=== PATIENT | female | born 1945 | race Caucasian/White ===

== ENCOUNTER → 2017-04-07 | Outpatient (CLI) | payer BC ==
[~2017-04-07] MED LIST: CHOL100010 PO; CLTP PO; CMD2 PO; EST1 PO; FISHOIL PO; IRON PO; MAGNESIUM PO; MULT-506 PO
--- NOTE | 2017-04-07 15:53 | MAMMOGRAPHY REPORT ---
BILATERAL DIGITAL SCREENING MAMMOGRAM WITH CAD: 04/07/2017 CLINICAL HISTORY: Routine screening. Patient has no complaints. TECHNIQUE: Current study was also evaluated with a Computer Aided Detection (CAD) system. Bilatera l CC and MLO views were obtained. COMPARISON: Comparison is made to exams dated: 01/21/2016 mammogram, 01/15/2015 mammogram, 01/08/2014 m ammogram, 10/20/2012 ultrasound, 10/20/2012 mammogram, and 01/11/2014 ultrasound - [facility]. BREAST COMPOSITION: The tissue of both breasts is heterogeneously dense, which may obscure small ma sses. FINDINGS: No suspicious masses, calcifications, or areas of architectural distortion are noted in e ither breast. There has been no significant interval change compared to prior exams. Scattered bilat eral benign-appearing calcifications are not significantly changed. Fluctuating benign-appearing ma sses are again noted within the left breast, with corresponding benign cysts seen on prior ultrasoun d exams. Scattered bilateral benign-appearing calcifications are not significantly changed. IMPRESSION: ACR BI-RADS CATEGORY 2: BENIGN There is no mammographic evidence of malignancy. A 1 year screening mammogram is recommended. The p atient will receive written notification of the results. Approximately 10% of breast cancers are not detected with mammography. A negative mammographic repor t should not delay biopsy if a clinically suggestive mass is present. Stella Rodriguez M.D. /:04/07/2017 15:11:11 End Polisher: Alie Zapata, [facility] letter sent: Normal 1/2 BI-RADS Code: ACR BI-RADS Category 2: Benign
== END | disposition home or self-care (01) ==
LOC: C.MAMM 09:06
PROVIDERS: ATTEND Obstetrics & Gynecology
DX: Z12.31 Encounter for screening mammogram for malignant neoplasm of breast (principal)

== ENCOUNTER → 2017-06-06 | Outpatient (CLI) | payer BC | END | disposition home or self-care (01) | LOC: C.RDSM 11:40 | PROVIDERS: ATTEND Physical Medicine & Rehabilitation Sports Medicine | DX: Z96.643 Presence of artificial hip joint, bilateral (principal) ==

== ENCOUNTER → 2017-09-26 | Outpatient (CLI) | payer BC ==
--- NOTE | 2017-09-26 13:15 | DIAGNOSTIC IMAGING REPORT ---
L FOOT MIN 3 VIEWS ROUTINE CLINICAL HISTORY: 72 years-old Female presenting with L FOOT PAIN, ACUTE, INFLAMMATORY. TECHNIQUE: Frontal, oblique, and lateral views of the left foot were obtained. COMPARISON: Plain radiographs of the right foot from 09/19/2015. FINDINGS: 2 screw fixation across the distal metaphysis of the first metatarsal. Screw fixation across the head of the second metatarsal. Suggestion of cortical erosion along the medial aspect of the head of the second metatarsal, age indeterminate. Surgically absent second toe. Degenerative changes of the first metatarsophalangeal joint with mild valgus angulation of the left toe. No acute fracture. IMPRESSION: Apparent osseous erosion of the medial aspect of the head of the second metatarsal. This raises concern for osteomyelitis in the proper clinical setting. Further evaluation with noncontrast MR of the forefoot could be obtained if clinically indicated. The report will be called/faxed according to standard departmental protocol. Electronically signed by: Corby Pacheco M.D. 09/26/2017 1:13 PM Dictated Date/Time: 09/26/2017 1:10 PM
--- NOTE | 2017-09-26 13:21 | DIAGNOSTIC IMAGING REPORT ---
R HAND MIN 3 VIEWS ROUTINE HISTORY: 72 years-old Female R HAND INFLAMMATORY chronic right hand pain without trauma COMPARISON: Left foot radiographs of same day TECHNIQUE: 3 views of the right hand FINDINGS: Mild periarticular osteopenia is noted. Moderate triscaphe and first carpometacarpal osteoarthritis with moderate metacarpal phalangeal degenerative changes of the first through third digits. Moderate interphalangeal degenerative changes are noted throughout. Central and marginal erosions are noted involving the fifth PIP joint along with marginal proliferative osteophytic spurring and subchondral sclerosis. Moderate associated soft tissue swelling. No definite additional erosions identified. No acute fracture or dislocation. No opaque foreign body. IMPRESSION: 1. Marginal and central erosions of the fifth PIP joint with associated marginal osteophytic spurring and moderate soft tissue swelling. These findings suggest an inflammatory arthropathy. 2. Multifocal moderate degenerative changes of the wrist and hand as above with periarticular osteopenia. The above report was generated using voice recognition software. It may contain grammatical, syntax or spelling errors. Electronically signed by: Rafael Chavarria M.D. 09/26/2017 1:20 PM Dictated Date/Time: 09/26/2017 1:16 PM
== END | disposition home or self-care (01) ==
LOC: C.RAD1850 12:51
DX: M79.672 Pain in left foot (principal); R93.7 Abnormal findings on diagnostic imaging of other parts of musculoskeletal system; M79.89 Other specified soft tissue disorders; M89.8X4 Other specified disorders of bone, hand

== ENCOUNTER 2019-04-27 18:07 | Inpatient (IN) ==
[2019-04-27] MEDS ORDERED: dilTIAZem HCl 5 MG/ML 5 ML VIAL IV STA (18:33)
[2019-04-27] MEDS ORDERED: dilTIAZem HCl 125 MG in DEXTROSE 5% 100 ML IV STA (18:33)
[2019-04-27] MEDS ORDERED: SODIUM CHLORIDE 0.9% 500 ML IV SCH (18:45)
--- NOTE | 2019-04-27 19:25 | XRay Report ---
XR chest 1V portable HISTORY: 73 years-old Female weakness acute weakness with atrial fibrillation COMPARISON: None available TECHNIQUE: Portable AP view of the chest FINDINGS: Cardiac mediastinal and hilar silhouettes are within normal limits. No pneumothorax, pleural effusion , focal airspace consolidation or overt pulmonary edema. Bones of the chest appear grossly intact. IMPRESSION: No acute process. The above report was generated using voice recognition software. It may contain grammatical, syntax o r spelling errors. Electronically signed by: Rafael Chavarria M.D. 04/27/2019 7:24 PM
[2019-04-27 19:28] LABS: Basophils # (auto) 0.04 K/uL (0-0.2); Basophils % (auto) 0.6 %; Eosinophils # (auto) 0.16 K/uL (0-0.5); Eosinophils % (auto) 2.5 %; Hematocrit (blood only) 37.1 % (37-47); Hemoglobin 13.1 g/dL (12.0-16.0); Lymphocytes % (auto) 36.2 %; Mean Corpuscular Hgb Conc 35.3 g/dL (32-36); Mean Corpuscular Volume 92.3 fL (80-100); Mean Platelet Volume 9.1 fL (7.4-10.4); Monocytes # (auto) 0.61 K/uL (0.11-0.59); Monocytes % (auto) 9.6 %; Neutrophils # (auto) 3.25 K/uL (1.4-6.5); Neutrophils % (auto) 51.1 %; Platelet Count 234 K/uL (130-400); RDW Coefficient of Variation 13.5 % (11.5-14.5); RDW Standard Deviation 44.8 fL (36.4-46.3); Red Blood Count 4.02 M/uL (4.2-5.4); White Blood Count 6.36 K/uL (4.8-10.8)
[2019-04-27 19:52] LABS: Alanine Aminotransferase 24 U/L (12-78); Albumin Level 3.3 gm/dl (3.4-5.0); Aspartate Aminotransferase 24 U/L (15-37); BUN Creatinine Ratio 16.3 (10-20); Blood Urea Nitrogen 11 mg/dl (7-18); Calcium 8.6 mg/dl (8.5-10.1); Carbon Dioxide 26 mmol/L (21-32); Chloride 111 mmol/L (98-107); Creatinine Clr Calc Pharmacy 67.7 ml/min; Est GFR (African American) 102.5; Est GFR (Non-African American) 88.4; Glucose 82 mg/dl (70-99); Magnesium 2.1 mg/dl (1.8-2.4); Potassium 3.6 mmol/L (3.5-5.1); Sodium 142 mmol/L (136-145)
[2019-04-27 20:02] LABS: Albumin Globulin Ratio 1.1 (0.9-2); Alkaline Phosphatase 59 U/L (45-117); Bilirubin,Total 0.4 mg/dl (0.2-1); Globulin 3.1 gm/dl (2.5-4.0); Total Protein 6.4 gm/dl (6.4-8.2); Troponin I < 0.015 ng/ml (0-0.045)
[2019-04-27 20:15] LABS: T4 Free Thyroxine 0.98 ng/dl (0.8-1.6)
--- NOTE | 2019-04-27 22:14 | History & Physical Report ---
Date of Service April 27, 2019 Assessment & Plan (1) Atrial fibrillation, rapid: Patient in atrial fibrillation, no document of prior. HR well controlled on Diltiazem gtt, BP stable, asymptomatic. Patient with 2 points on CHADS2-Vasc score, high risk for thromboembolism. Troponin x 1 negative, no evidence of ischemic changes on EKG. Suspect that patient's incredible stress is contributing no new arrhythmia -Admit to medical floor with telemetry -DC Diltiazem gtt and administer PO Diltiazem 30mg po TID -Heparin gtt, transition to oral anticoagulation in AM -2D echo in AM Present on Admission?: Yes (2) Arthritis: Chronic. Stable -Continue Celebrex daily -Continue MTX weekly F/E/N - Heplock. Electrolytes WNL, check PO4 x 1, Regular diet as tolerated Ppx - heparin gtt as above Code - Full Dispo - Admit to Med with Tele Present on Admission?: Yes History of Present Illness Chief Complaint: Palpitations, new onset atrial fibrillation Primary Care Provider: Frederick Armijo Jr, Mica Saleem is a 73yo C female with history of arthritis presenting with new onset atrial fibrillation. Patient has been under a large amount of personal and professional stress of late. She reports feeling very fatigued over the last few weeks. This AM she had palpitations associated with lightheadedness and presyncope. She was running errands at the time. She sat down and rested with improvement in her symptoms. Patient reports longstanding history of PACs, she has experienced palpitations in the past, however this episode was different because it was more pronounced, longer lasting and associated with dizziness. She denies EtOH intake. Drinks no more than 2 caffeinated beverages daily. Patient arrived to the ER with HR of 118bpm, blood pressure stable. ER course: Diltiazem 10mg IV then drip, NSS 500mL Allergies Allergy/AdvReac Type Severity Reaction Status Date / Time adhesive Allergy Unknown SWELLING Verified 04/27/19 20:12 AND REDNESS LOCALLY codeine AdvReac Unknown NAUSEA AND Verified 04/27/19 20:12 VOMITING morphine AdvReac Unknown NAUSEA AND Verified 04/27/19 20:12 VOMITING Home Medications Home Medications Medication Instructions Recorded Confirmed Type celecoxib 200 mg PO QAM 04/27/19 04/27/19 History cholecalciferol (vitamin D3) 1,000 unit PO QAM 04/27/19 04/27/19 History [Vitamin D3] estradiol 1 mg PO QAM 04/27/19 04/27/19 History ferrous sulfate [iron] 325 mg PO QAM 04/27/19 04/27/19 History folic acid 1 mg PO QAM 04/27/19 04/27/19 History methotrexate sodium 15 mg PO WK 04/27/19 04/27/19 History omega 7-wrt-jfq-fish oil [Fish Oil] 1 cap PO QAM 04/27/19 04/27/19 History vitamin B complex [Super B-50 1 cap PO QAM 04/27/19 04/27/19 History Complex] Past Med/Surg History Medical History A-fib Arthritis Surgical History History of total hip replacement Hx of cataract surgery Family History Other Family history non-contributory Social History Preferred Language: [place] marital status: Current Living Situation: Alone current occupational status: employed Feels Safe at Home: Yes Smoking Status: Never smoker Hx Alcohol Use: No Hx Substance Use: No Review of Systems Review of Systems: All systems reviewed & are unremarkable except as noted in HPI & below Physical Exam Physical Exam: General: patient resting comfortably, NAD, non-toxic in appearance, AA&O x 4 Skin: warm, dry, intact, no rashes or lesions HEENT: NC/AT, PERRL, EOMI, anicteric sclera, conjunctiva without injection, ex ternal ear normal to inspection and nontender, nares patent, moist mucus membranes, dentition intact, no oropharyngeal lesions, neck supple, trachea midline, no LAD, no thyromegaly, no JVD Heart: +S1/S2, irregularly irregular, no m/r/g Lungs: equal air entry bilaterally, no rales/rhonchi/wheezes Abd: +BS, soft, NT/ND, no masses/organomegaly/ascites Ext: warm, 2+ pulses in UE/LE bilaterally, no clubbing/cyanosis or edema Neuro: nonfocal, patient AA&O x 4, speech intact, no facial droop, moving all extremities on command with equal strength 5/5 Results & Data Vital Signs (Past 12 Hours) Vital Signs Temp Pulse Pulse Resp BP BP Pulse Ox 04/27/19 20:30 70 18 120/76 97 04/27/19 19:34 69 16 145/82 H 98 04/27/19 19:19 99 04/27/19 19:17 85 18 159/107 H 99 04/27/19 18:08 36.5 C 118 H 18 153/71 H 100 Laboratory Results Lab Results 04/27/19 04/27/19 Range/Units 19:00 19:00 WBC 6.36 (4.8-10.8) K/uL RBC 4.02 L (4.2-5.4) M/uL Hgb 13.1 (12.0-16.0) g/dL Hct 37.1 (37-47) % MCV 92.3 (80-100) fL MCH 32.6 (25-34) pg MCHC 35.3 (32-36) g/dL RDW Std Deviation 44.8 (36.4-46.3) fL RDW Coeff of Amena 13.5 (11.5-14.5) % Plt Count 234 (130-400) K/uL MPV 9.1 (7.4-10.4) fL Immature Gran % (Auto) 0.0 % Neut % (Auto) 51.1 % Lymph % (Auto) 36.2 % [place] % (Auto) 9.6 % Eos % (Auto) 2.5 % Baso % (Auto) 0.6 % Immature Gran # (Auto) 0.00 (0.00-0.02) K/uL Neut # (Auto) 3.25 (1.4-6.5) K/uL Lymph # (Auto) 2.30 (1.2-3.4) K/uL [place] # (Auto) 0.61 H (0.11-0.59) K/uL Eos # (Auto) 0.16 (0-0.5) K/uL Baso # (Auto) 0.04 (0-0.2) K/uL Sodium 142 (136-145) mmol/L Potassium 3.6 (3.5-5.1) mmol/L Chloride 111 H (98-107) mmol/L Carbon Dioxide 26 (21-32) mmol/L Anion Gap 5.0 (3-11) BUN 11 (7-18) mg/dl Creatinine 0.67 (0.6-1.2) mg/dl Est Cr Clr Drug Dosing 67.7 ml/min Est GFR ( Amer) 102.5 Est GFR (Non-Af Amer) 88.4 BUN/Creatinine Ratio 16.3 (10-20) Glucose 82 (70-99) mg/dl Calcium 8.6 (8.5-10.1) mg/dl Magnesium 2.1 (1.8-2.4) mg/dl Total Bilirubin 0.4 (0.2-1) mg/dl AST 24 (15-37) U/L ALT 24 (12-78) U/L Alkaline Phosphatase 59 (45-117) U/L Troponin I < 0.015 (0-0.045) ng/ml Total Protein 6.4 (6.4-8.2) gm/dl Albumin 3.3 L (3.4-5.0) gm/dl Globulin 3.1 (2.5-4.0) gm/dl Albumin/Globulin Ratio 1.1 (0.9-2) TSH 5.440 H (0.300-4.500) uIu/ml Free T4 0.98 (0.8-1.6) ng/dl Diagnostic Findings XR chest 1V portable HISTORY: 73 years-old Female weakness acute weakness with atrial fibrillation COMPARISON: None available TECHNIQUE: Portable AP view of the chest FINDINGS: Cardiac mediastinal and hilar silhouettes are within normal limits. No pneumothorax, pleural effusion, focal airspace consolidation or overt pulmonary edema. Bones of the chest appear grossly intact. IMPRESSION: No acute process. The above report was generated using voice recognition software. It may contain grammatical, syntax or spelling errors. Electronically signed by: Rafael Chavarria M.D. 04/27/2019 7:24 PM Dictated: 04/27/191921 Transcribed: 04/27/191921 ECG Additional Comments: The study shows atrial fibrillation at 106bpm, normal axis and intervals, no acute ischemic changes Code Status & VTE Plan Code Status full VTE Prophylaxis Plan VTE Prophylaxis will be ordered: Yes
--- NOTE | 2019-04-27 22:50 | Emergency Department Note ---
Entered by Shadi Moreau acting as a scribe for History of Present Illness General Chief complaint: Arrhythmia/Palpitations Stated complaint: AFIB Time Seen by Provider: 04/27/19 18:23 Source: patient Limitations: no limitations History of Present Illness Onset (ago): hour(s) (this morning) Location: chest Pain Consistency: + constant Maximum Pain Intensity: 0 Current Pain Intensity: 0 Quality: + other (flutter) Associated symptoms: + other (stress, grief, lightheadedness); no shortness of breath The patient is a 73 year old female who presents to the Emergency Room with complaints of constant arrhythmia starting this morning. The patient states she went to preop testing today and states the EKG showed she was in A-Fib--she is scheduled for foot surgery. She states she noticed her heart flutter before going to the appointment but thought it was because of stress. She states she has been under a lot of stress and grief from her son passing away recently. She states she does not have any pain from the fluttering. She notes she feels lightheaded. She states she has been drinking diet Pepsi recently. She states she has been taking 200 mg Celebrex in the morning. She denies SOB, taking blood thinners, and having A-Fib before. She states she was diagnosed with PACs when she was a kid. She states she has arthritis and has had 2 total knee replacements. Home Medications Home Medications Medication Instructions Recorded Confirmed Type celecoxib 200 mg PO QAM 04/27/19 04/27/19 History cholecalciferol (vitamin D3) 1,000 unit PO QAM 04/27/19 04/27/19 History [Vitamin D3] estradiol 1 mg PO QAM 04/27/19 04/27/19 History ferrous sulfate [iron] 325 mg PO QAM 04/27/19 04/27/19 History folic acid 1 mg PO QAM 04/27/19 04/27/19 History methotrexate sodium 15 mg PO WK 04/27/19 04/27/19 History omega 8-vbc-siw-fish oil [Fish Oil] 1 cap PO QAM 04/27/19 04/27/19 History vitamin B complex [Super B-50 1 cap PO QAM 04/27/19 04/27/19 History Complex] Allergies Allergy/AdvReac Type Severity Reaction Status Date / Time adhesive Allergy Unknown SWELLING Verified 04/27/19 20:12 AND REDNESS LOCALLY codeine AdvReac Unknown NAUSEA AND Verified 04/27/19 20:12 VOMITING morphine AdvReac Unknown NAUSEA AND Verified 04/27/19 20:12 VOMITING Past Med/Surg History Medical History A-fib Arthritis Surgical History History of total hip replacement Hx of cataract surgery Family History Other Family history non-contributory Social History Preferred Language: [place] Islander marital status: Current Living Situation: Alone current occupational status: employed Feels Safe at Home: Yes Smoking Status: Never smoker Hx Alcohol Use: No Hx Substance Use: No Review of Systems See HPI for pertinent positives & negatives. and A total of 10 systems reviewed and were otherwise negative Physical Exam Vital Signs Vital Signs - 24 hr 04/27/19 18:08 04/27/19 19:17 04/27/19 19:19 Temperature 36.5 C Temperature Source Oral Sepsis Recent Fever Within 48 Hours No Sepsis Action Taken by Nursing No Action Required Pulse Rate 118 H Pulse Rate [Right Finger] 85 Respiratory Rate 18 18 Respiratory Effort / Characteristics Non-Labored Spontaneous Non-Labored Spontaneous Respiratory Depth Normal Normal Respiratory Pattern Regular Regular Blood Pressure 153/71 H Blood Pressure [Right Arm] 159/107 H Blood Pressure Mean 98 Blood Pressure Mean [Right Arm] 124 Blood Pressure Position Sitting Blood Pressure Position [Right Arm] Lying Pulse Oximetry 100 99 99 Oxygen Delivery Method Room Air Room Air Room Air 04/27/19 19:34 04/27/19 20:30 Temperature Temperature Source Sepsis Recent Fever Within 48 Hours Sepsis Action Taken by Nursing Pulse Rate Pulse Rate [Right Finger] 69 70 Respiratory Rate 16 18 Respiratory Effort / Characteristics Non-Labored Spontaneous Non-Labored Spontaneous Respiratory Depth Normal Normal Respiratory Pattern Regular Regular Blood Pressure Blood Pressure [Right Arm] 145/82 H 120/76 Blood Pressure Mean Blood Pressure Mean [Right Arm] 103 90 Blood Pressure Position Blood Pressure Position [Right Arm] Lying Lying Pulse Oximetry 98 97 Oxygen Delivery Method Room Air Room Air GENERAL: Patient is in no acute distress. HEENT: No acute trauma, normocephalic atraumatic, mucous membranes moist, no nasal congestion, no scleral icterus. NECK: No stridor, no adenopathy, no meningismus, trachea is midline. LUNGS: Clear to auscultation bilaterally, no wheeze, no rhonchi, breath sounds equal. HEART: Irregular rhythm. Mildly tachycardic rate. No murmurs. ABDOMEN: Soft, nontender, bowel sounds positive, no hernias, no peritonitis. EXTREMITIES: No cyanosis or edema, full range of motion of all the joints without pain or difficulty, no signs for acute trauma. NEUROLOGIC: Oriented x 3, no acute motor or sensory deficits, no focal weakness. SKIN: No rash, no jaundice, no diaphoresis. Course 1825: The patient was evaluated in room B5, and a complete history and physical examination were performed. 2004: I reevaluated the patient. I updated her on her labs and imaging results. Her heart rate is controlled and she is resting. 2029: I discussed the patient's case with Dr. Mary Jo Chau - [facility] Hospitalist. She will evaluate the patient for further management. Administered Medications Diltiazem HCl (Cardizem) 30 mg PO TID CODI Stop: 05/27/19 23:29 Last Admin: 04/27/19 23:54 Dose: 30 mg Documented by: [id number] Heparin Sodium/Dextrose (Heparin Sodium/Dextrose) 25,000 units in 500 mls @ 20 mls/hr IV .Q24H CODI; Protocol Stop: 05/27/19 23:29 Last Admin: 04/27/19 23:53 Dose: 1,000 units/hr, 20 mls/hr Documented by: [id number] Cosigned by: [id number] Discontinued Medications Diltiazem HCl (Cardizem) 10 mg IV NOW STA Stop: 04/27/19 18:34 Last Admin: 04/27/19 19:10 Dose: 10 mg Documented by: [id number] Cosigned by: [id number] Diltiazem HCl 125 mg/ Dextrose 125 mls @ 0 mls/hr IV .Q0M STA; Protocol Stop: 04/27/19 18:34 Last Admin: 04/27/19 19:11 Dose: 5 mg/hr, 5 mls/hr Documented by: [id number] Cosigned by: [id number] Sodium Chloride (Nss) 500 mls @ 999 mls/hr IV .Q31M CODI Stop: 04/27/19 19:15 Last Infusion: 04/27/19 19:37 Dose: 0 mls/hr Documented by: [id number] Admin: 04/27/19 19:10 Dose: 999 mls/hr Documented by: [id number] Medical Decision Making Differential Diagnosis Differential Diagnosis: A-Fib, A-Flutter, thyroid disorder, electrolyte imbalance, dehydration, anemia, and cardiac ischemia. Medical Records Attestation: I reviewed the patient's medical records. Home Medications Current Medication List: was personally reviewed by me Laboratory Data Attestation: I reviewed the patient's lab results. Result diagrams: 04/27/19 19:00 04/27/19 19:00 Lab Results 04/27/19 04/27/19 Range/Units 19:00 19:00 WBC 6.36 (4.8-10.8) K/uL RBC 4.02 L (4.2-5.4) M/uL Hgb 13.1 (12.0-16.0) g/dL Hct 37.1 (37-47) % MCV 92.3 (80-100) fL MCH 32.6 (25-34) pg MCHC 35.3 (32-36) g/dL RDW Std Deviation 44.8 (36.4-46.3) fL RDW Coeff of [place] 13.5 (11.5-14.5) % Plt Count 234 (130-400) K/uL MPV 9.1 (7.4-10.4) fL Immature Gran % (Auto) 0.0 % Neut % (Auto) 51.1 % Lymph % (Auto) 36.2 % [place] % (Auto) 9.6 % Eos % (Auto) 2.5 % Baso % (Auto) 0.6 % Immature Gran # (Auto) 0.00 (0.00-0.02) K/uL Neut # (Auto) 3.25 (1.4-6.5) K/uL Lymph # (Auto) 2.30 (1.2-3.4) K/uL [place] # (Auto) 0.61 H (0.11-0.59) K/uL Eos # (Auto) 0.16 (0-0.5) K/uL Baso # (Auto) 0.04 (0-0.2) K/uL Sodium 142 (136-145) mmol/L Potassium 3.6 (3.5-5.1) mmol/L Chloride 111 H (98-107) mmol/L Carbon Dioxide 26 (21-32) mmol/L Anion Gap 5.0 (3-11) BUN 11 (7-18) mg/dl Creatinine 0.67 (0.6-1.2) mg/dl Est Cr Clr Drug Dosing 67.7 ml/min Est GFR ( Amer) 102.5 Est GFR (Non-Af Amer) 88.4 BUN/Creatinine Ratio 16.3 (10-20) Glucose 82 (70-99) mg/dl Calcium 8.6 (8.5-10.1) mg/dl Phosphorus 3.4 (2.5-4.9) mg/dl Magnesium 2.1 (1.8-2.4) mg/dl Total Bilirubin 0.4 (0.2-1) mg/dl AST 24 (15-37) U/L ALT 24 (12-78) U/L Alkaline Phosphatase 59 (45-117) U/L Troponin I < 0.015 (0-0.045) ng/ml Total Protein 6.4 (6.4-8.2) gm/dl Albumin 3.3 L (3.4-5.0) gm/dl Globulin 3.1 (2.5-4.0) gm/dl Albumin/Globulin Ratio 1.1 (0.9-2) TSH 5.440 H (0.300-4.500) uIu/ml Free T4 0.98 (0.8-1.6) ng/dl Imaging Data Radiologist's Impression: Radiology results as stated below per my review and the radiologist's interpretation: XR chest 1V portable HISTORY: 73 years-old Female weakness acute weakness with atrial fibrillation COMPARISON: None available TECHNIQUE: Portable AP view of the chest FINDINGS: Cardiac mediastinal and hilar silhouettes are within normal limits. No pneumothorax, pleural effusion, focal airspace consolidation or overt pulmonary edema. Bones of the chest appear grossly intact. IMPRESSION: No acute process. The above report was generated using voice recognition software. It may contain grammatical, syntax or spelling errors. Electronically signed by: Rafael Chavarria M.D. 04/27/2019 7:24 PM ECG Data Attestation: I personally reviewed and interpreted this ECG as follows: Indication: chest pain Rate (beats per minute): 106 Rhythm: atrial fibrillation Findings: + nonspecific-ST abn; no PVC and no ST elevation Blood Pressure Blood Pressure Findings: Elevated blood pressure Blood Pressure Disposition: further management by hospitalist LEVI Narrative There is no leukocytosis or concerning anemia. No significant electrolyte abnormality or kidney failure. No elevation to the LFTs. The patient's thyroid testing showed a mildly elevated TSH but the T4 was normal. EKG showed atrial fibrillation which was rapid, no acute ischemia. Cardiac enzyme testing x1 was not consistent with acute cardiac injury. Chest film did not show pneumonia or CHF. No significant cardiomegaly. The patient received IV saline. She was placed on a diltiazem drip after an IV diltiazem bolus was administered. The patient is still in A. fib but the rate is nicely controlled with the diltiazem. I do think she requires hospitalization and further work-up. I spoke to the patient and home health care case manager. The on-call hospitalist was consulted. Impression & Plan Atrial fibrillation, rapid, Palpitations Critical Care Time Critical Care Time: Yes Total Critical Care Time: 35 I have personally spent 35 minutes of critical care time in the direct management of this patient. This includes bedside care, interpretation of diagnostic studies, and testing, discussion with consultants, patient, and family members, and other required patient management activities. This 35 minutes is in excess of all separately billable procedures. Discharge Plan Visit Data *Final* Discharge Date/Time: 04/27/19 22:14 Chief Complaint: Arrhythmia/Palpitations Stated Complaint: AFIB ED Provider: Anthony Sorenson Discharge Problem: Atrial fibrillation, rapid, Palpitations Patient Disposition: Admitted As Inpatient Discharge Instructions Interventions: ED Discharge Assessment Last Done: 04/27/19 22:14 The tyler's documentation has been prepared under my direction and personally reviewed by me in its entirety. I confirm that the note above accurately reflects all work, treatment, procedures, and medical decision making performed by me.
[2019-04-27] MEDS ORDERED: Heparin IV Standard *NO* Bolus IV SCH (23:00)
[2019-04-27] MEDS ORDERED: Heparin Adult STANDARD Wt-Based Dextrose 5% 25,000 units/500 mL IV SCH (23:30)
[2019-04-27] MEDS: dilTIAZem HCL 30 MG TAB PO SCH (23:54)
[2019-04-27 23:56] LABS: Phosphorus 3.4 mg/dl (2.5-4.9)
[2019-04-28 06:37] LABS: Partial Thromboplastin Ratio 2.3
[2019-04-28 06:53] LABS: Partial Thromboplastin Time 61.1 Seconds (21.0-31.0)
[2019-04-28] MEDS: dilTIAZem HCL 30 MG TAB PO SCH ×2 (08:31→14:25)
[2019-04-28] MEDS ORDERED: ESTRADIOL 1 MG TAB PO SCH (09:00)
[2019-04-28] MEDS ORDERED: FERROUS SULFATE 325 MG TAB PO SCH (09:00)
[2019-04-28] MEDS ORDERED: FOLIC ACID 1 MG TAB PO SCH (09:00)
[2019-04-28] MEDS ORDERED: CeleBREX 200 MG CAP PO SCH (09:00)
[2019-04-28] MEDS ORDERED: metHOTREXate sodium 2.5 MG TAB PO SCH (09:00)
--- NOTE | 2019-04-28 12:10 | Discharge Summary ---
Date of Service April 28, 2019 Admission HPI Per Admitting Provider Mica Saleem is a 73yo C female with history of arthritis presenting with new onset atrial fibrillation. Patient has been under a large amount of personal and professional stress of late. She reports feeling very fatigued over the last few weeks. This AM she had palpitations associated with lightheadedness and presyncope. She was running errands at the time. She sat down and rested with improvement in her symptoms. Patient reports longstanding history of PACs, she has experienced palpitations in the past, however this episode was different because it was more pronounced, longer lasting and associated with dizziness. She denies EtOH intake. Drinks no more than 2 caffeinated beverages daily. Patient arrived to the ER with HR of 118bpm, blood pressure stable. ER course: Diltiazem 10mg IV then drip, NSS 500mL Admission Exam Per Admitting Provider General: patient resting comfortably, NAD, non-toxic in appearance, AA&O x 4 Skin: warm, dry, intact, no rashes or lesions HEENT: NC/AT, PERRL, EOMI, anicteric sclera, conjunctiva without injection, external ear normal to inspection and nontender, nares patent, moist mucus membranes, dentition intact, no oropharyngeal lesions, neck supple, trachea midline, no LAD, no thyromegaly, no JVD Heart: +S1/S2, irregularly irregular, no m/r/g Lungs: equal air entry bilaterally, no rales/rhonchi/wheezes Abd: +BS, soft, NT/ND, no masses/organomegaly/ascites Ext: warm, 2+ pulses in UE/LE bilaterally, no clubbing/cyanosis or edema Neuro: nonfocal, patient AA&O x 4, speech intact, no facial droop, moving all extremities on command with equal strength 5/5 Principal Diagnosis Atrial fibrillation with RVR. Discharge Exam General Appearance: Awake, alert & oriented, comfortable in general, NAD. CV: +S1S2 RRR, no murmur. Pulm: Clear to auscultation throughout. Abdomen: +BS, soft, non-tender, non-distended. Extremities: No pedal edema bilaterally. Moving all extremities naturally and easily. Left foot: Surgically absent second toe. Has a light bandage to the medial first MTP joint. Neuro: No gross neuro deficits. Discharge Data Allergies Allergy/AdvReac Type Severity Reaction Status Date / Time adhesive Allergy Unknown SWELLING Verified 04/27/19 20:12 AND REDNESS LOCALLY codeine AdvReac Unknown NAUSEA AND Verified 04/27/19 20:12 VOMITING morphine AdvReac Unknown NAUSEA AND Verified 04/27/19 20:12 VOMITING Consultations 04/27/19 20:12 ED Decision to Admit Stat Ordered Studies Transthoracic echocardiogram on 28 April 2019 See full report. In summary: - Normal left ventricular size with hyperdynamic systolic function. EF greater than 70%. No regional wall motion abnormalities. Mild concentric LVH. � Mild biatrial dilatation, mild mitral regurgitation, moderate tricuspid regurgitation. � Normal estimated right ventricular systolic pressure. Hospital Course (1) Atrial fibrillation with RVR: 73-year-old female was admitted on 27 April 2019 after being found in A. fib during outpatient preoperative EKG. Atrial fibrillation with RVR: No history of same. Does report some recent increased fatigue and lightheadedness which she attributes to multiple personal and professional stressors lately. Initial EKG was afib rate 128. TnI negative and no CP/SOB. pCXR clear Started on diltiazem drip, converted to NSR overnight, then transitioned to diltiazem 30 mg p.o. TID as inpatient. On heparin acutely. 08Apr TTE noted EF > 70%, mild biatrial dilatation, mild MR, moderate TR, normal estimated RVSP. No evidence of clot. - Discussed the basics of atrial fibrillation with the patient. - Will discharge on metoprolol succinate 50 mg p.o. daily. - Worked with case management. Will send home on xarelto 20 mg daily. Should discuss concurrent use of Celebrex with her PCP or cardiology. - Recommended follow-up with her primary care provider or cardiology (Dr. Gonzalez read her initial EKG) as soon as possible for ongoing management. Foot surgery: Patient says she is on track for left foot surgery on . - Will need her anticoagulation held preoperatively. Recommended follow-up with her foot surgeon as soon as possible to discuss her new A. fib diagnosis. Elevated TSH: Admit TSH was 5.54 with normal free T4. Need to be addressed as outpatient by PCP. Arthritis: Chronic, stable. On Celebrex and methotrexate. Code status: Full code. (2) Elevated TSH: (3) Arthritis: Total Time Total Time Spent Total Time Spent (In Minutes): > 30 min Discharge Plan Discharge Items Patient Disposition: Home - Self-Care Reason For Visit: NEW ONSET ATRIAL FIB Discharge Diagnosis: Atrial fibrillation with RVR Discharge Goals: Learn about illness Activity: Per 'Additional Instructions' section Non-emergency contact: Primary Care Provider Call non-emergency contact if: you have any medication questions Follow-up/Referrals: Frederick Armijo Jr, [Primary Care Provider] - Diet: Regular Addtl Provider Instructions: You were admitted to the hospital on April 27, 2019 due to the new diagnosis of atrial fibrillation (�afib�) on your preoperative EKG. As we discussed briefly, atrial fibrillation is where the top two chambers of your heart do not squeeze quite properly (they fibrillate) at times. This fibrillation in itself can to the development of blood clots which, unfortunately, can then leave your heart and cause things like strokes or lung clots. Furthermore, if your fibrillation ends up going to fast you can get further symptoms such as lightheadedness, dizziness, increased fatigue, and palpitations. In severe cases he can have chest pain and low blood pressure leading to other problems. - In the hospital, your heart rate converted back to a normal electrical rhythm after starting a medicine called diltiazem. You were also placed on a blood thinner by IV called heparin. - Regarding being discharged, we will transition you to a different heart medication called metoprolol succinate (take the first dose TuesdayApril 29 morning). Similarly, this medication will slow down your heart and help prevent you from going back into atrial fibrillation. - You do have some risk for developing a blood clot leading to a stroke. Therefore, recommend that you go home on a blood thinner called Xarelto. Take the first dose this (Tuesday) evening with dinner. --- Follow the instructions of the case work aide here to activate the medication coupon she provided. 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 - Please make an appointment with your primary care provider as soon as possible to discuss this new A. fib diagnosis and for ongoing care. - You can also consider follow-up with cardiology (Dr. Gonzalez, ) next week, particularly if your surgeon requests a pre-operative cardiac evaluation. - The above information is not all inclusive. Please follow up with your doctor(s) as above to discuss this further, including the benefits and risks of remaining on these medications. Regarding your pending left foot surgery on May 08, it is quite important that you contact your foot surgeon as soon as possible to discuss this new A. fib diagnosis. Specifically, it is important to get their advice on when to hold off on taking your new Xarelto in the preoperative period. Please return to the nearest emergency department if you develop any severe lightheadedness, dizziness, fatigue, any chest pain or shortness of breath, or with any other emergent concerns. Prescriptions: New metoprolol succinate 50 mg tablet extended release 24 hr 50 mg PO DAILY Qty: 30 RF: 0 Xarelto 20 mg tablet 20 mg PO DAILY Qty: 30 RF: 0 Continued celecoxib 200 mg capsule 200 mg PO QAM RF: 0 estradiol 1 mg tablet 1 mg PO QAM RF: 0 methotrexate sodium 2.5 mg tablet 15 mg PO WK RF: 0 ferrous sulfate [iron] 325 mg (65 mg iron) Tablet 325 mg PO QAM RF: 0 folic acid 1 mg tablet 1 mg PO QAM RF: 0 vitamin B complex [Super B-50 Complex] Capsule 1 cap PO QAM RF: 0 cholecalciferol (vitamin D3) [Vitamin D3] 1,000 unit Capsule 1,000 unit PO QAM RF: 0 omega 9-rog-fgo-fish oil [Fish Oil] 1,000 mg (120 mg-180 mg) Capsule 1 cap PO QAM RF: 0 Stand-Alone Forms: My [facility] Discharge Orders: Discharge Order (Routine); Ordered 04/28/19 Ordered By: Rafael Haji Admission Data Admit Date/Time: 04/27/19 21:36 Attending Provider: Carmen Decker Admit Provider: Jenifer Chua Primary Care Provider: Frederick Armijo Jr Other Providers: Jenifer Chau Service: Telemetry Medical Other Interventions: Discharge Summary Assessment (RN) Last Done: 04/28/19 15:44 DC Date/Time DO NOT enter until pt leaves facility: 04/28/19 16:00 Supervising Physician Co-Signing Physician Notes Resident Physician Supervision Note: I independently interviewed and examined the patient and verified the zuniga history and physical, reviewed labs and image studies, discussed the case with the resident Dr. Garcia and agree with the findings and care plan. Time spent in discharge 35 min Resident Activity Tracking Resident Involvement: Resident Care Provided Care Provided: Adult Hospital Medicine
== END 2019-04-28 16:00 | disposition home or self-care (01) | DRG 310 ==
LOC: ED 18:07 → SUATTDRO 21:36 → 2N 21:36

== ENCOUNTER 2023-06-21 18:16 | Inpatient (IN) ==
--- NOTE | 2023-06-21 19:27 | ED Triage Note ---
Date of Service June 21, 2023 History of Present Illness This patient was briefly evaluated while in triage. An abbreviated physical exam was performed. This patient is a 78-year-old Female who presents to the ED for evaluation of diarrhea over the past few days, now with lightheadedness when she stands up. Here with her son who states she is being evaluated tomorrow by PCP for possible new dementia. There was some report of patient slurring her words earlier today about 8 hours ago, but son has not noticed this. No other focal deficits. No chest pain or dyspnea. No vomiting or nausea. Physical Exam CONSTITUTIONAL: in no acute pain or distress, resting comfortably SKIN: pink, warm, dry CARDIAC: regular rate and rhythm RESPIRATORY: in no respiratory distress, lungs clear to auscultation ABDOMEN: Nontender NEURO: CN II-XII intact. No pronator drift. strength 5+ in bilateral upper and lower extremities Initial orders for labs and / or imaging were placed and patient was placed in the waiting area until a bed is available. Please see further documentation for the full ED course.
[2023-06-21] MEDS ORDERED: SODIUM CHLORIDE 0.9% 1000ML 500 ML IV ONE (21:21)
--- NOTE | 2023-06-21 21:28 | Emergency Department Note ---
History of Present Illness General Chief complaint: Weakness Stated complaint: WEAK, LIGHT HEADED, DIARRHEA,NEAR SYNCOPE Time Seen by Provider: 06/21/23 21:08 Source: patient, family (Son who is at the bedside), RN notes reviewed and old records reviewed (Specifically I reviewed a family practice note from 11-02-2022) Mode of arrival: ambulatory Limitations: no limitations History of Present Illness Maximum Pain Intensity: 4 This patient is a 78-year-old female who is brought in by her son. Apparently at around 1115 this morning the patient's neighbor called him and said that she was slurring her speech she was weak and shaky. The son drove in from outside in [place] and showed up about 3 and half hours later and her speech has been better since. The patient feels okay at present but had diarrhea yesterday and felt exhausted. No diarrhea today. no blood or melena in her stool. no fever, no shortness of breath or chest pain. She has had memory issues since his pandemic which she has attributed to long COVID potentially. She has had no fall or trauma. No focal numbness or weakness. No change in vision. no headache, neck pain ,or stiffness. Home Medications Medication Instructions Recorded Confirmed Type cholecalciferol (vitamin D3) 25 1,000 unit PO QAM 04/27/19 06/21/23 History mcg (1,000 unit) capsule (Vitamin D3) omega 2-zuz-oud-fish oil 1,000 mg 1 cap PO QAM 04/27/19 06/21/23 History (120 mg-180 mg) capsule (Fish Oil) rivaroxaban 20 mg tablet (Xarelto) 20 mg PO DAILY #30 tabs 04/28/19 06/21/23 Rx latanoprost 0.005 % eye drops 1 drops ophthalmic (eye) QPM 10/09/19 06/21/23 History magnesium 250 mg tablet 250 mg PO DAILY 02/25/21 06/21/23 History diltiazem HCl 120 mg capsule,24 120 mg PO DAILY PRN as needed for 11/25/21 06/21/23 Rx hr,extended release exercise #30 caps biotin 2,500 mcg capsule 2,500 mcg PO DAILY 06/09/22 06/21/23 History estradiol 1 mg tablet 2 mg PO QAM 06/09/22 06/21/23 History ferrous sulfate 325 mg (65 mg 325 mg PO DAILY 06/09/22 06/21/23 History iron) tablet (Feosol) levothyroxine 25 mcg tablet 25 mcg PO DAILY 06/09/22 06/21/23 History metoprolol succinate 25 mg 25 mg PO DAILY #90 tabs 09/06/22 06/21/23 Rx tablet,extended release 24 hr vitamin B complex 1 tab PO DAILY 06/21/23 06/21/23 History vitamin E-zinc gluconate capsule 1 cap PO DAILY 06/21/23 06/21/23 History Allergies Allergy/AdvReac Type Severity Reaction Status Date / Time hydroxychloroquine Allergy Severe rash, hives Verified 06/09/22 09:49 [From Plaquenil] adhesive Allergy Unknown SWELLING Verified 06/09/22 09:49 AND REDNESS LOCALLY oxycodone Allergy Unknown Unknown Verified 06/21/23 23:27 codeine AdvReac Unknown NAUSEA AND Verified 06/09/22 09:49 VOMITING morphine AdvReac Unknown NAUSEA AND Verified 06/09/22 09:49 VOMITING Past Med/Surg History Medical History (Updated 06/21/23 @ 23:39 by Peter Olivas MD) A-fib Arthritis Breast cyst Menopause Mitral regurgitation Osteoarthritis Surgical History H/O hernia repair History of appendectomy History of tonsillectomy and adenoidectomy History of total hip replacement History of tubal ligation Hx of cataract surgery S/P abdominal hysterectomy and left salpingo-oophorectomy S/P dilatation and curettage Family History Father Myocardial infarction Congestive heart failure Pure hypercholesterolemia Brother Exertional angina Mother Hypotension Social History Smoking Status: Never smoker Do You Dip or Chew Tobacco: No; Hx Alcohol Use: No Hx Substance Use: No Preferred Language: Icelandic Communication Ability: Effective Bicycle Taxi Driver Required: No Beliefs That Will Affect Care: None marital status: Current Living Situation: Alone Current Living Situation Comment: House current occupational status: employed Feels Safe at Home: Yes Assistive Devices: None Review of Systems A total of 10 systems reviewed and were otherwise negative Physical Exam Vital Signs Vital Signs - 24 hr 06/21/23 19:20 06/21/23 21:10 06/21/23 21:10 Temperature 37.4 C Temperature Source Temporal Artery Scan Pulse Rate 85 Pulse Rate [Apical] 78 Respiratory Rate 18 14 Respiratory Effort / Characteristics Non-Labored Spontaneous Non-Labored Spontaneous Respiratory Depth Normal Normal Blood Pressure 95/52 L Blood Pressure [Right Radial Artery] 106/55 L Blood Pressure Mean 66 Blood Pressure Mean [Right Radial Artery] 72 Pulse Oximetry 97 99 99 Oxygen Delivery Method Room Air Room Air Room Air Sepsis Recent Fever Within 48 Hours No Sepsis New/Unexplained Change in Mental Status No Sepsis Action Taken by Nursing No Action Required 06/21/23 22:31 06/21/23 23:17 Temperature Temperature Source Pulse Rate 78 Pulse Rate [Apical] 79 Respiratory Rate 16 Respiratory Effort / Characteristics Non-Labored Spontaneous Respiratory Depth Normal Blood Pressure Blood Pressure [Right Radial Artery] 103/52 L Blood Pressure Mean Blood Pressure Mean [Right Radial Artery] 69 Pulse Oximetry 98 Oxygen Delivery Method Room Air Sepsis Recent Fever Within 48 Hours Sepsis New/Unexplained Change in Mental Status Sepsis Action Taken by Nursing General: Well developed well nourished older female who appears in no acute distress, breathing comfortably on room air. Normal speech. Alert and orient x3 answering questions appropriately, speech is nonslurred HEENT: Normal cephalic atraumatic. Pupils are equal round and reactive to light. Extraocular movements are intact. Sclera anicteric. oropharynx is pink with moist mucous membranes. No swelling of the mouth lips or tongue. Neck: Supple with a midline trachea. No meningeal signs or stiffness, no JVD or bruits. No Stridor. Chest: Clear to auscultation bilaterally. No wheezes or rhonchi. No increased work of breathing. Heart: Regular rate and rhythm without murmurs or gallops. Abdomen: Soft nontender, nondistended without rebound guarding or rigidity. Extremities: No cyanosis clubbing or edema. No calf tenderness or assymetry Spine/Back. Non tender to palpation. No CVA tenderness Skin: Good turgor without rashes. Neurologic exam: Cranial nerves two through 12 are intact. Motor and sensation are intact and symmetrical throughout. No tremor. Course Administered Medications Discontinued Medications Sodium Chloride (Nss 1000ml) 500 mls @ 999 mls/hr IV .Q31M ONE Stop: 06/21/23 21:51 Last Infusion: 06/21/23 21:59 Dose: 0 mls/hr Documented By: Admin: 06/21/23 21:26 Dose: 999 mls/hr Documented By: DEMETRIO Medical Decision Making Differential Diagnosis CVA, TIA, intracranial process, arrhythmia, acute coronary syndrome, electrolyte or metabolic abnormality, infection, dehydration, diarrheal illness, COVID Medical Records Attestation: I reviewed the patient's medical records. Home Medications Current Medication List: was personally reviewed by me Laboratory Data Attestation: I reviewed the patient's lab results. 06/21/23 20:55 06/21/23 20:55 Lab Results 06/21/23 06/21/23 06/21/23 Range/Units 20:55 20:55 21:27 WBC 7.13 (4.8-10.8) K/ul RBC 3.52 L (4.20-5.40) M/uL Hgb 11.2 L (12.0-16.0) g/dl Hct 32.4 L (37.0-47.0) % MCV 92.0 (80.0-100.0) fL MCH 31.8 (25.0-34.0) pg MCHC 34.6 (32.0-36.0) g/dL RDW Std Deviation 48.6 H (36.4-46.3) fL RDW Coeff of Amena 14.5 (11.5-14.5) % Plt Count 206 (130-400) K/uL MPV 8.8 L (9.4-12.4) fL Immature Gran % (Auto) 0.4 % Neut % (Auto) 72.8 % Lymph % (Auto) 18.0 % Thurston % (Auto) 8.4 % Eos % (Auto) 0.0 % Baso % (Auto) 0.4 % Neut # (Auto) 5.19 (1.40-6.50) K/uL Lymph # (Auto) 1.28 (1.2-3.4) K/uL Thurston # (Auto) 0.60 H (0.11-0.59) K/uL Eos # (Auto) 0.00 (0-0.50) K/uL Baso # (Auto) 0.03 (0-0.2) K/uL Immature Gran # (Auto) 0.03 (0.01-0.20) K/uL Sodium 134 L (136-145) mmol/L Potassium 3.7 (3.5-5.1) mmol/L Chloride 100 (98-107) mmol/L Carbon Dioxide 25 (21-32) mmol/L Anion Gap 9 (3-11) BUN 22 (6-23) mg/dl Creatinine 1.13 (0.6-1.2) mg/dl Est Cr Clr Drug Dosing 37.2 ml/min Est GFR ( Amer) 54.7 ml/min Est GFR (Non-Af Amer) 47.2 ml/min BUN/Creatinine Ratio 19.5 (10-20) Glucose 124 H (70-99(Fasting)) mg/dl Calcium 9.1 (8.6-10.3) mg/dl Magnesium 1.8 (1.7-2.4) mg/dl Total Bilirubin 1.1 H (0.2-1.0) mg/dl AST 38 (13-39) U/L ALT 25 (7-52) U/L Alkaline Phosphatase 81 (34-104) U/L Troponin I High Sens 8.0 (0-14) pg/ml Total Protein 7.4 (6.0-8.3) gm/dl Albumin 4.2 (3.4-5.0) gm/dl Globulin 3.2 (2.5-4.0) gm/dl Albumin/Globulin Ratio 1.3 (0.9-2) Lipase 17 (11-82) U/L SARS-CoV-2, RNA, NAAT NEGATIVE (NEGATIVE) Imaging Data Attestation: I personally reviewed and interpreted this imaging study as follows: My Impression: Chest x-rayno acute infiltrate, failure, pneumothorax seen Head CTno hemorrhage or mass effect seen Radiologist's Impression: Head CT 06/21/23 21:05 Exam(s): CT HEAD Without Contrast EXAM: CT Head Without Intravenous Contrast CLINICAL HISTORY: Reason for exam: new dementia symptoms, abnormal ekg. TECHNIQUE: Axial computed tomography images of the head/brain without intravenous contrast. CTDI is any ti38.31 mGy and DLP is 547.75 mGy-cm. Automated exposure control was utilized for the study. A dose lowering technique was utilized adhering to the principles of ALARA. COMPARISON: No relevant prior studies available. FINDINGS: No acute intracranial hemorrhage. No midline shift or mass effect. The territorial marino-white matter differentiation is maintained throughout. Age-related cerebral volume loss. Periventricular and subcortical white matter hypoattenuation, consistent with chronic microangiopathy. The visualized orbits appear grossly unremarkable. The calvarium is intact. The visualized paranasal sinuses and mastoid air cells are grossly clear. IMPRESSION: No acute intracranial hemorrhage, midline shift, or mass effect. Electronically signed by: Kirk Thompson MD 06/21/23 21:56 PM ECG Data Attestation: I personally reviewed and interpreted this ECG as follows: Indication: + weakness Rate (beats per minute): 79 Rhythm: + normal sinus ECG Intervals/blocks: + Normal QRS, + Normal QT and + Normal OK ECG [place]: + Normal ECG ST segments: + Normal ST segments ECG Findings: no PACs or no PVCs Comparison ECG Date: from (04/27/19) Change: the following changes noted (Normal sinus rhythm has replaced A-fib. ST and T wave inversions inferiorly and laterally are new) MDM Narrative This patient comes in as described above. She looks well and feels well at present. She had an episode where she apparently was slurring her speech. She is also had a weakness and a diarrheal illness. IV access was established she was hydrated with 500 cc normal saline bolus EKG was obtained and multiple blood testing was obtained CAT scan was obtained of her head as well as chest x-ray. Her EKG does show some ST and T wave abnormalities inferiorly and laterally which is new compared to old she does have a history of A-fib and is not currently in A-fib. She believes she is on Eliquis. She does have memory issues at baseline. Troponin is within normal limits. She has no elevation of her white count or fever to suggest infection/sepsis. Her hemoglobin is 11.1 but no history of bleeding and she does have mild anemia. She has a no significant electrolyte or metabolic abnormalities. CAT scan of her head is unremarkable. I talked to the patient and her son at length. I do think she needs to be admitted/observed she had an episode where she had slurred speech and seemed confused it could have been an acute neurologic process/TIA. Additionally, her EKG has ST and T wave abnormalities which are new then this may need further evaluation as well. She has no chest pain or shortness of breath at present and is feeling better. I did discuss the case with Dr. Martin who saw the patient in the ER and will admit/observe her for these measures. Continuous cardiac monitoring: Orders placed in EMR for continuous cardiac monitoring: Upon my evaluation patient was noted to be normal sinus with a rate of 75. Impression & Plan Weakness, Acute electrocardiogram changes, Acute focal neurological deficit, Memory deficit, Lab test negative for COVID-19 virus Discharge Plan Visit Data Chief Complaint: Weakness Stated Complaint: WEAK, LIGHT HEADED, DIARRHEA,NEAR SYNCOPE ED Provider: Peter Olivas Discharge Problem: Weakness, Acute electrocardiogram changes, Acute focal neurological deficit, Memory deficit, Lab test negative for COVID-19 virus Forms Stand Alone Forms: My [facility] Prescriptions Prescriptions: No Action metoprolol succinate 25 mg tablet extended release 24 hr 25 mg PO DAILY Qty: 90 3RF latanoprost 0.005 % drops 1 drops OP QPM levothyroxine 25 mcg tablet 25 mcg PO DAILY biotin 2,500 mcg capsule 2,500 mcg PO DAILY ferrous sulfate [Feosol] 325 mg (65 mg iron) tablet 325 mg PO DAILY magnesium 250 mg tablet 250 mg PO DAILY diltiazem HCl 120 mg capsule,extended release 24 hr 120 mg PO DAILY PRN (Reason: as needed for exercise) Qty: 30 2RF Rx Instructions: take as needed when planning a walk cholecalciferol (vitamin D3) [Vitamin D3] 1,000 unit Capsule 1,000 unit PO QAM omega 7-fvw-wsj-fish oil [Fish Oil] 1,000 mg (120 mg-180 mg) Capsule 1 cap PO QAM Xarelto 20 mg tablet 20 mg PO DAILY Qty: 30 0RF Rx Instructions: must administer with evening meal estradiol 1 mg tablet 2 mg PO QAM vitamin B complex [Super B Complex] Tablet 1 tab PO DAILY vitamin E-zinc gluconate Capsule 1 cap PO DAILY Referrals Referrals: Alisia Portillo PA-C [Physician Costing Manager] -
[2023-06-21 21:40] LABS: Basophils # (auto) 0.03 K/uL (0-0.2); Basophils % (auto) 0.4 %; Hematocrit (blood only) 32.4 % (37.0-47.0); Hemoglobin 11.2 g/dl (12.0-16.0); Immature Granulocytes # (auto) 0.03 K/uL (0.01-0.20); Immature Granulocytes % (auto) 0.4 %; Lymphocytes # (auto) 1.28 K/uL (1.2-3.4); Mean Corpuscular Hemoglobin 31.8 pg (25.0-34.0); Mean Corpuscular Hgb Conc 34.6 g/dL (32.0-36.0); Mean Platelet Volume 8.8 fL (9.4-12.4); Monocytes % (auto) 8.4 %; Neutrophils # (auto) 5.19 K/uL (1.40-6.50); Neutrophils % (auto) 72.8 %; Platelet Count 206 K/uL (130-400); RDW Coefficient of Variation 14.5 % (11.5-14.5); RDW Standard Deviation 48.6 fL (36.4-46.3); Red Blood Count 3.52 M/uL (4.20-5.40); White Blood Count 7.13 K/ul (4.8-10.8)
[2023-06-21 21:48] LABS: Albumin Globulin Ratio 1.3 (0.9-2); Albumin Level 4.2 gm/dl (3.4-5.0); BUN Creatinine Ratio 19.5 (10-20); Bilirubin,Total 1.1 mg/dl (0.2-1.0); Calcium 9.1 mg/dl (8.6-10.3); Creatinine Clr Calc Pharmacy 37.2 ml/min; Est GFR (African American) 54.7 ml/min; Est GFR (Non-African American) 47.2 ml/min; Globulin 3.2 gm/dl (2.5-4.0); Magnesium 1.8 mg/dl (1.7-2.4); Potassium 3.7 mmol/L (3.5-5.1); Total Protein 7.4 gm/dl (6.0-8.3)
--- NOTE | 2023-06-21 21:57 | CT Scan Report ---
Exam(s): CT HEAD Without Contrast EXAM: CT Head Without Intravenous Contrast CLINICAL HISTORY: Reason for exam: new dementia symptoms, abnormal ekg. TECHNIQUE: Axial computed tomography images of the head/brain without intravenous contrast. CTDI is any ti38.31 mGy and DLP is 547.75 mGy-cm. Automated exposure control was utilized for the study. A dose lowering technique was utilized adhering to the principles of ALARA. COMPARISON: No relevant prior studies available. FINDINGS: No acute intracranial hemorrhage. No midline shift or mass effect. The territorial marino-white matter differentiation is maintained throughout. Age-related cerebral volume loss. Periventricular and subcortical white matter hypoattenuation, consistent with chronic microangiopathy. The visualized orbits appear grossly unremarkable. The calvarium is intact. The visualized paranasal sinuses and mastoid air cells are grossly clear. IMPRESSION: No acute intracranial hemorrhage, midline shift, or mass effect. Electronically signed by: Kirk Thompson MD 06/21/23 21:56 PM
[2023-06-21] MEDS: MAGNESIUM SULFATE / D5W 1 GM/100 ML BAG IV SCH (23:32)
[2023-06-21] MEDS ORDERED: NSS + 20MEQ KCL 20 MEQ/1,000 ML BAG IV ONE (23:35)
--- NOTE | 2023-06-22 00:43 | History & Physical Report ---
Date of Service June 22, 2023 Assessment & Plan (1) Pre-syncope: Plan: Likely secondary to orthostasis secondary to hypovolemia from decreased p.o. intake from depression/possible dementia/recent diarrheal illness Patient hypotensive upon arrival at the ER. Rule out UTI PAF on Eliquis valvular heart disease (moderate MR/TR) pulmonary hypertension hypothyroidism, euthyroid as of today's TSH New onset anemia, FOBT done at the ER was negative Hyperglycemia rule out DM Recent tick bite Probable functional disability OBS Medical telemetry IVF Check UA, Lyme screen Anemia work-up, transfuse PRBC if hemoglobin less than 7 and or symptomatic anemia Psych consult re: suboptimal depression Check hemoglobin A1c PT OT eval DVT prophylaxis. Xarelto Full code Patient son requesting updates providers. Mr. Kristofer Saleem, contact #[phone]. Text document was generated using [employer] voice recognition software. It may contain grammatical or spelling errors. Kindly contact undersigned for clarification of any documentation item in question. History of Present Illness Chief Complaint: Lightheadedness, weakness as per records Primary Care Provider: Corby Kang MD History obtained from patient, family, and records. Limited history from patient secondary to memory impairment. Medical history significant for PAF on Eliquis, valvular heart disease (moderate MR/TR), pulmonary hypertension, hypothyroidism, mood disorder, osteoarthritis, mild cognitive impairment/dementia as per records. Last confinement 2018 for new onset A-fib. Patient discharged on Toprol and Xarelto medications. Patient and family noted memory decline since start of pandemic in 2019. Isolation from losing job and suicide among family members ( and son). Mostly short-term memory loss. Patient exhibiting strange behaviors like putting cheese in her car as per outpatient documentation. [place] [facility] [place] for memory issues last January 2023 following referral by PCP. MMSE was 19/30. Impression was mild cognitive impairment. Specialist discussed additional neuropsychological evaluation recommended. Driving cessation and living situation concerns discussed with patient's only living son lives in [place] over the phone by specialist. Progressive short-term memory decline noted over the last few months. Patient would not remember if she took her pills. Patient not eating as much as per son. Patient admits to being depressed but denies suicidality. She does not think her Prozac medication by a specialist she does not like is helping. Patient son received phone call from patient's neighbor that patient was noted to be weak, shaky at home with slurred speech. Diarrhea symptoms which patient denies. Lightheadedness symptoms without chest pain, SOB, abdominal pain. Denies black/bloody stools. Patient thinks she was bitten by a tick on the right leg 4 days ago. Patient son drove to [place] from [place] to check on his mother. Patient not slurring when son saw her. She agreed to come to the ER to get checked out. Patient has poor recollection of the events prior to ER arrival. SBP 90s upon arrival at the ER. 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 Allergies Allergy/AdvReac Type Severity Reaction Status Date / Time hydroxychloroquine Allergy Severe rash, hives Verified 06/09/22 09:49 [From Plaquenil] adhesive Allergy Unknown SWELLING Verified 06/09/22 09:49 AND REDNESS LOCALLY oxycodone Allergy Unknown Unknown Verified 06/21/23 23:27 codeine AdvReac Unknown NAUSEA AND Verified 06/09/22 09:49 VOMITING morphine AdvReac Unknown NAUSEA AND Verified 06/09/22 09:49 VOMITING Home Medications Medication Instructions Recorded Confirmed Type cholecalciferol (vitamin D3) 25 1,000 unit PO QAM 04/27/19 06/21/23 History mcg (1,000 unit) capsule (Vitamin D3) omega 9-xqf-[id number]-fish oil 1,000 mg 1 cap PO QAM 04/27/19 06/21/23 History (120 mg-180 mg) capsule (Fish Oil) rivaroxaban 20 mg tablet (Xarelto) 20 mg PO DAILY #30 tabs 04/28/19 06/21/23 Rx latanoprost 0.005 % eye drops 1 drops ophthalmic (eye) QPM 10/09/19 06/21/23 History magnesium 250 mg tablet 250 mg PO DAILY 02/25/21 06/21/23 History diltiazem HCl 120 mg capsule,24 120 mg PO DAILY PRN as needed for 11/25/21 06/21/23 Rx hr,extended release exercise #30 caps biotin 2,500 mcg capsule 2,500 mcg PO DAILY 06/09/22 06/21/23 History estradiol 1 mg tablet 2 mg PO QAM 06/09/22 06/21/23 History ferrous sulfate 325 mg (65 mg 325 mg PO DAILY 06/09/22 06/21/23 History iron) tablet (Feosol) levothyroxine 25 mcg tablet 25 mcg PO DAILY 06/09/22 06/21/23 History metoprolol succinate 25 mg 25 mg PO DAILY #90 tabs 09/06/22 06/21/23 Rx tablet,extended release 24 hr vitamin B complex 1 tab PO DAILY 06/21/23 06/21/23 History vitamin E-zinc gluconate capsule 1 cap PO DAILY 06/21/23 06/21/23 History fluoxetine 40 mg capsule 40 mg PO DAILY 06/22/23 06/22/23 History Past Med/Surg History Medical History (Updated 06/21/23 @ 23:39 by Peter Olivas MD) A-fib Arthritis Breast cyst Menopause Mitral regurgitation Osteoarthritis Surgical History H/O hernia repair History of appendectomy History of tonsillectomy and adenoidectomy History of total hip replacement History of tubal ligation Hx of cataract surgery S/P abdominal hysterectomy and left salpingo-oophorectomy S/P dilatation and curettage Family History Father Myocardial infarction Congestive heart failure Pure hypercholesterolemia Brother Exertional angina Mother Hypotension Social History Smoking Status: Unknown if ever smoked Do You Dip or Chew Tobacco: No; Hx Alcohol Use: No Hx Substance Use: No Preferred Language: Egyptian Communication Ability: Effective Label Pinker Required: No Beliefs That Will Affect Care: None marital status: Current Living Situation: Alone Current Living Situation Comment: House current occupational status: employed Feels Safe at Home: Yes Safety Concerns: Feels Safe At This Time Assistive Devices: Glasses Review of Systems Review of Systems: Could not be reliably obtained secondary to cognitive impairment Physical Exam Physical Exam: GENERAL: Coherent, comfortable, pleasant, looks younger than stated age, no respiratory distress SKIN: Pallor, warm HEENT: Pale palpebral conjunctivae, no ptosis, dry buccal mucosa NECK : Supple, no tenderness CHEST : CTA, no tenderness HEART : RRR, no obvious murmurs ABDOMEN: Some distention, nontender RECTAL : Intact sphincter, brown stool (FOBT negative) EXTREMITIES : No LE swelling/tenderness, no other conspicuous deformities noted NEUROLOGIC : Coherent, no facial asymmetry, marked short-term memory impairment, gait and stance not assessed Results & Data Results & Data Vital Signs (Past 12 Hours) Vital Signs Temp Pulse Pulse Resp BP BP Pulse Ox 06/22/23 00:00 75 15 104/56 L 98 06/21/23 23:50 74 15 96 06/21/23 23:40 72 18 97 06/21/23 23:30 70 18 107/52 L 06/21/23 23:20 78 19 06/21/23 23:17 73 16 06/21/23 23:17 78 06/21/23 22:31 79 16 103/52 L 98 06/21/23 21:10 78 14 106/55 L 99 06/21/23 21:10 99 06/21/23 19:20 37.4 C 85 18 95/52 L 97 O2 Del Method 06/22/23 00:00 06/21/23 23:50 06/21/23 23:40 06/21/23 23:30 06/21/23 23:20 06/21/23 23:17 06/21/23 23:17 06/21/23 22:31 Room Air 06/21/23 21:10 Room Air 06/21/23 21:10 Room Air 06/21/23 19:20 Room Air Laboratory Results Laboratory Results WBC 7.13 K/ul (4.8-10.8) 06/21/23 20:55 RBC 3.52 M/uL (4.20-5.40) L 06/21/23 20:55 Hgb 11.2 g/dl (12.0-16.0) L 06/21/23 20:55 Hct 32.4 % (37.0-47.0) L 06/21/23 20:55 MCV 92.0 fL (80.0-100.0) 06/21/23 20:55 MCH 31.8 pg (25.0-34.0) 06/21/23 20:55 MCHC 34.6 g/dL (32.0-36.0) 06/21/23 20:55 RDW Std Deviation 48.6 fL (36.4-46.3) H 06/21/23 20:55 RDW Coeff of Amena 14.5 % (11.5-14.5) 06/21/23 20:55 Plt Count 206 K/uL (130-400) 06/21/23 20:55 MPV 8.8 fL (9.4-12.4) L 06/21/23 20:55 Immature Gran % (Auto) 0.4 % 06/21/23 20:55 Neut % (Auto) 72.8 % 06/21/23 20:55 Lymph % (Auto) 18.0 % 06/21/23 20:55 Fallon % (Auto) 8.4 % 06/21/23 20:55 Eos % (Auto) 0.0 % 06/21/23 20:55 Baso % (Auto) 0.4 % 06/21/23 20:55 Neut # (Auto) 5.19 K/uL (1.40-6.50) 06/21/23 20:55 Lymph # (Auto) 1.28 K/uL (1.2-3.4) 06/21/23 20:55 Fallon # (Auto) 0.60 K/uL (0.11-0.59) H 06/21/23 20:55 Eos # (Auto) 0.00 K/uL (0-0.50) 06/21/23 20:55 Baso # (Auto) 0.03 K/uL (0-0.2) 06/21/23 20:55 Immature Gran # (Auto) 0.03 K/uL (0.01-0.20) 06/21/23 20:55 Sodium 134 mmol/L (136-145) L 06/21/23 20:55 Potassium 3.7 mmol/L (3.5-5.1) 06/21/23 20:55 Chloride 100 mmol/L (98-107) 06/21/23 20:55 Carbon Dioxide 25 mmol/L (21-32) 06/21/23 20:55 Anion Gap 9 (3-11) 06/21/23 20:55 BUN 22 mg/dl (6-23) 06/21/23 20:55 Creatinine 1.13 mg/dl (0.6-1.2) 06/21/23 20:55 Est Cr Clr Drug Dosing 37.2 ml/min 06/21/23 20:55 Est GFR ( Amer) 54.7 ml/min 06/21/23 20:55 Est GFR (Non-Af Amer) 47.2 ml/min 06/21/23 20:55 BUN/Creatinine Ratio 19.5 (10-20) 06/21/23 20:55 Glucose 124 mg/dl (70-99(Fasting)) H 06/21/23 20:55 Calcium 9.1 mg/dl (8.6-10.3) 06/21/23 20:55 Magnesium 1.8 mg/dl (1.7-2.4) 06/21/23 20:55 Total Bilirubin 1.1 mg/dl (0.2-1.0) H 06/21/23 20:55 AST 38 U/L (13-39) 06/21/23 20:55 ALT 25 U/L (7-52) 06/21/23 20:55 Alkaline Phosphatase 81 U/L (34-104) 06/21/23 20:55 Troponin I High Sens 8.0 pg/ml (0-14) 06/21/23 20:55 Total Protein 7.4 gm/dl (6.0-8.3) 06/21/23 20:55 Albumin 4.2 gm/dl (3.4-5.0) 06/21/23 20:55 Globulin 3.2 gm/dl (2.5-4.0) 06/21/23 20:55 Albumin/Globulin Ratio 1.3 (0.9-2) 06/21/23 20:55 Lipase 17 U/L (11-82) 06/21/23 20:55 TSH 2.814 uIu/ml (0.300-4.500) 06/21/23 20:55 SARS-CoV-2, RNA, NAAT NEGATIVE (NEGATIVE) 06/21/23 21:[address] 06/21/23 21:05 Exam(s): CT HEAD Without Contrast EXAM: CT Head Without Intravenous Contrast CLINICAL HISTORY: Reason for exam: new dementia symptoms, abnormal ekg. TECHNIQUE: Axial computed tomography images of the head/brain without intravenous contrast. CTDI is any ti38.31 mGy and DLP is 547.75 mGy-cm. Automated exposure control was utilized for the study. A dose lowering technique was utilized adhering to the principles of ALARA. COMPARISON: No relevant prior studies available. FINDINGS: No acute intracranial hemorrhage. No midline shift or mass effect. The territorial marino-white matter differentiation is maintained throughout. Age-related cerebral volume loss. Periventricular and subcortical white matter hypoattenuation, consistent with chronic microangiopathy. The visualized orbits appear grossly unremarkable. The calvarium is intact. The visualized paranasal sinuses and mastoid air cells are grossly clear. IMPRESSION: No acute intracranial hemorrhage, midline shift, or mass effect. Electronically signed by: Kirk Thompson MD 06/21/23 21:56 PM Diagnostic Findings EKG as per my interpretation :Rate 80, NSR, normal axis, T wave inversions inferior and anterolateral leads
[2023-06-22] MEDS: MAGNESIUM SULFATE / D5W 1 GM/100 ML BAG IV SCH (01:37)
[2023-06-22] MEDS ORDERED: ACETAMINOPHEN 325 MG TAB PO PRN (01:39)
[2023-06-22] MEDS ORDERED: PROMETHAZINE HCL 6.25 MG in SODIUM CHLORIDE 0.9% 50 ML IV PRN (01:39)
[2023-06-22 01:44] LABS: Reticulocyte % 3.8 % (0.5-2.0); Reticulocytes # 0.12 10^6/uL (0.02-0.10)
[2023-06-22 02:04] LABS: Ferritin 493.9 ng/ml (8-388)
[2023-06-22 02:10] LABS: Folate (Folic Acid),Ser orPlas > 22.30 ng/ml (>5.38)
[2023-06-22 02:11] LABS: Vitamin B12 440 pg/ml (180-914)
[2023-06-22] MEDS: LATANOPROST 0.005% OP SOLN 2.5 ML BTL OP SCH ×2 (02:37→20:32)
[2023-06-22] MEDS ORDERED: POTASSIUM CHLORIDE CRTAB 20 MEQ TABCR PO STA (03:53)
[2023-06-22] MEDS ORDERED: METOPROLOL TARTRATE 1 MG/ML VIAL IV STA (03:53)
[2023-06-22 04:55] LABS: BUN Creatinine Ratio 23.8 (10-20); Est GFR (African American) 78.2 ml/min; Est GFR (Non-African American) 67.5 ml/min; Potassium 3.6 mmol/L (3.5-5.1)
[2023-06-22 05:01] LABS: Basophils # (auto) 0.02 K/uL (0-0.2); Basophils % (auto) 0.4 %; Eosinophils # (auto) 0.01 K/uL (0-0.50); Eosinophils % (auto) 0.2 %; Hematocrit (blood only) 27.2 % (37.0-47.0); Hemoglobin 9.5 g/dl (12.0-16.0); Immature Granulocytes # (auto) 0.01 K/uL (0.01-0.20); Immature Granulocytes % (auto) 0.2 %; Lymphocytes # (auto) 0.97 K/uL (1.2-3.4); Lymphocytes % (auto) 21.1 %; Mean Corpuscular Hemoglobin 31.4 pg (25.0-34.0); Mean Corpuscular Hgb Conc 34.9 g/dL (32.0-36.0); Mean Corpuscular Volume 89.8 fL (80.0-100.0); Monocytes # (auto) 0.57 K/uL (0.11-0.59); Monocytes % (auto) 12.4 %; Neutrophils # (auto) 3.02 K/uL (1.40-6.50); Neutrophils % (auto) 65.7 %; Platelet Count 167 K/uL (130-400); RDW Coefficient of Variation 14.6 % (11.5-14.5); RDW Standard Deviation 47.4 fL (36.4-46.3); Red Blood Count 3.03 M/uL (4.20-5.40)
--- NOTE | 2023-06-22 07:20 | XRay Report ---
XR chest 1V portable HISTORY: 78 years-old Female weakness COMPARISON: 04/27/2019 TECHNIQUE: AP view of the chest FINDINGS: Cardiac silhouette is enlarged. Atherosclerosis of the aorta. No pneumothorax, pleural effusion, airs pace consolidation or pulmonary edema. Bones appear grossly intact. IMPRESSION: No acute process. ACT 112: Negative or not required by law. The above report was generated using voice recognition software. It may contain grammatical, syntax o r spelling errors. Electronically signed by: Jose Chavarria M.D. 06/22/2023 7:19 AM
[2023-06-22] MEDS: LEVOTHYROXINE SODIUM 25 MCG TABLET PO SCH (07:38)
[2023-06-22] MEDS: VITAMIN B COMPLEX TAB PO SCH (07:38)
[2023-06-22] MEDS: METOPROLOL SUCC 25MG EXT REL TAB PO SCH (07:40)
[2023-06-22 08:02] LABS: Appearance Urine Clear (Clear); Bacteria Urine Automated Negative (Negative); Bilirubin Urine Negative (Negative); Blood Urine 2+ (Negative); Color Urine Dark Yellow; Epithelial Cell Urine Auto >30 /lpf (0-5); Glucose Urine UA Negative (Negative); Ketones Urine Trace (Negative); Leukocyte Esterase Urine Negative (Negative); Nitrite Urine Negative (Negative); Protein Urine Trace (Negative); RBC Urine Automated 0-4 /hpf (0-4); Specific Gravity Urine 1.022 (1.000-1.030); Urobilinogen Urine Negative (Negative); pH Urine 5.5 (4.5-7.5)
[2023-06-22 08:25] LABS: Estimated Average Glucose 88 mg/dl; Hemoglobin A1C 4.7 % (4.5-5.6)
[2023-06-22 10:42] LABS: Polychromasia 1+
[2023-06-22 11:33] LABS: Lyme Ab IgG w/WB Rflx Negative (Negative)
[2023-06-22] MEDS: FLUoxetine HCL 20 MG CAP PO SCH (11:51)
[2023-06-22 11:56] LABS: Lyme Ab IgM w/WB Rflx Equivocal (Negative)
[2023-06-22] MEDS ORDERED: cefTRIAXone SODIUM 1,000 MG in DEXTROSE 5% AD-VAN 50 ML IV SCH (14:00)
[2023-06-22] MEDS: RIVAROXABAN 20 MG TAB PO SCH (18:31)
[2023-06-22] MEDS ORDERED: SODIUM CHLORIDE 0.9% 1000ML 1,000 ML IV SCH ×2 (19:30→22:15)
[2023-06-22] MEDS ORDERED: ACETAMINOPHEN 1,000 MG/100 ML VIAL IV STA (22:14)
[2023-06-22] MEDS ORDERED: ACETAMINOPHEN 1000 MG/100 ML IV IV ONE (22:17)
[2023-06-22] MEDS: DOXYCYCLINE HYCLATE 100 MG in DEXTROSE 5% 100 ML IV SCH (22:53)
[2023-06-22 22:57] LABS: Appearance Urine Clear (Clear); Bacteria Urine Automated Negative (Negative); Bilirubin Urine Negative (Negative); Blood Urine 3+ (Negative); Color Urine Dark Yellow; Epithelial Cell Urine Auto >30 /lpf (0-5); Glucose Urine UA Negative (Negative); Ketones Urine 1+ (Negative); Leukocyte Esterase Urine Negative (Negative); Nitrite Urine Negative (Negative); Protein Urine 1+ (Negative); Specific Gravity Urine 1.022 (1.000-1.030); Urobilinogen Urine Negative (Negative); pH Urine 5.5 (4.5-7.5)
[2023-06-22] MEDS ORDERED: SODIUM CHLORIDE 0.9% 1000ML 500 ML IV ONE (23:22)
[2023-06-22] MEDS ORDERED: SODIUM CHLORIDE 0.9% 500 ML IV SCH (23:51)
[2023-06-23] MEDS ORDERED: CEFEPIME 2,000 MG in SYRINGE 0 ML IV STA (00:07)
[2023-06-23] MEDS: SODIUM CHLORIDE 0.9% 1000ML 1,000 ML IV SCH ×3 (00:55→16:42)
[2023-06-23 05:02] LABS: Hematocrit (blood only) 23.9 % (37.0-47.0); Hemoglobin 8.1 g/dl (12.0-16.0); Mean Corpuscular Hemoglobin 31.5 pg (25.0-34.0); Mean Corpuscular Hgb Conc 33.9 g/dL (32.0-36.0); Mean Platelet Volume 8.9 fL (9.4-12.4); Platelet Count 143 K/uL (130-400); RDW Coefficient of Variation 14.6 % (11.5-14.5); RDW Standard Deviation 50.4 fL (36.4-46.3); Red Blood Count 2.57 M/uL (4.20-5.40); White Blood Count 4.96 K/ul (4.8-10.8)
[2023-06-23 05:04] LABS: BUN Creatinine Ratio 19.2 (10-20); Calcium 7.5 mg/dl (8.6-10.3); Creatinine Clr Calc Pharmacy 57.5 ml/min; Est GFR (African American) 92.7 ml/min
[2023-06-23] MEDS: LEVOTHYROXINE SODIUM 25 MCG TABLET PO SCH (06:13)
--- NOTE | 2023-06-23 06:55 | Magnetic Resonance Report ---
MR brain wo con HISTORY: 78 years-old Female gen.weakness, slurred speech, wors. memory acute weakness with stroke l cliff symptoms COMPARISON: Head CT 06/21/2023 TECHNIQUE: Multiplanar multisequence MRI of the brain was obtained without the use of IV contrast. FINDINGS: No restricted diffusion. Degenerative changes of the imaged cervical spine. Midline structures are ot herwise unremarkable. Marcelino-cisterna magna. No acute intracranial hemorrhage, midline shift, abnormal extra-axial collection, hydrocephalus or intracranial mass. No pathologic blooming artifact. Involuti onal changes of the brain parenchyma with mild T2/FLAIR hyperintense foci throughout the white matter . Cerebral venous sinuses and major arterial flow voids appear patent. Skull, orbits and soft tissues a re unremarkable. Prior bilateral lens repair. Minimal mucosal thickening of the paranasal sinuses. IMPRESSION: 1. No acute intracranial abnormality. 2. Involutional changes with mild chronic microvascular ischemic disease. ACT 112: Negative or not required by law. The above report was generated using voice recognition software. It may contain grammatical, syntax o r spelling errors. Electronically signed by: Jose Chavarria M.D. 06/23/2023 6:53 AM
--- NOTE | 2023-06-23 07:32 | Communication Note ---
Date of Service: June 23, 2023 Last night patient had temp spike and was in rapid a flutter with HR 160's. Gave iv tylenol and 1.5lts NS bolus and transferred to tele. Got converted to sinus rhythm. BP ok. changed abx to doxy and cefepime for now. Possible lyme disease.UA came back negative. Close monitor.
[2023-06-23] MEDS: FLUoxetine HCL 20 MG CAP PO SCH (08:00)
[2023-06-23] MEDS: METOPROLOL SUCC 25MG EXT REL TAB PO SCH (08:00)
[2023-06-23] MEDS: VITAMIN B COMPLEX TAB PO SCH (08:00)
--- NOTE | 2023-06-23 08:10 | Hospitalist Progress Note ---
Date of Service June 23, 2023 Assessment & Plan (1) Pre-syncope: Plan: Not clear etiology - Likely secondary to orthostasis secondary to hypovolemia from decreased p.o. intake from depression/possible dementia/recent diarrheal illness Patient hypotensive upon arrival at the ER. UTI was ruled out Pt febrile overnight Blood culture pending Initially on empiric ceftriaxone, now on cefepime and doxy - pending cultures and tick born studies Pt reports seeing a tick on her leg IGG lyme negative and IgM Lyme equivocal, will cont. to treat for possible Lyme disease babesia, anaplasma, ehrlichia - pending Because of report of poss. slurred speech, CT head was obtained in the ED CT head negative MRI brain obtained - also negative for acute pathology - 1. No acute intracranial abnormality. 2. Involutional changes with mild chronic microvascular ischemic disease. Anemia - likely iron def. anemia as iron level low FOBT on admission negative B12 and folic acid wnl will repeat fobt, will obtain peripheral smear transfuse PRBC if hemoglobin less than 7 and or symptomatic anemia cont. to monitor H&H PAF on xarelto valvular heart disease (moderate MR/TR) pulmonary hypertension hypothyroidism, euthyroid as of current TSH Hyperglycemia rule out DM, current a1c 4.7% Probable functional disability Psych consult re: suboptimal depression PT OT eval DVT prophylaxis. Xarelto Full code Patient son Mr. Kristofer Saleem, contact #[phone]. Admission and Anticipated Discharge Date Admission Date: June 22, 2023 Subjective Pt seen in follow up - weakness, slurred speech, ams Per son at the bedside yesterday - short term memory is worse Pt reports she forgets to eat and drink at home Then overnight she was febrile and had elev. HR - aflutter - this has resolved after IVF and tylenol given - pls see academic advisement director's note for more detail Blood cultx obtained overnight Abx broadened to cefepime and doxy Currently pt is sitting up in bed in NAD Son present at the bedside again Pt reports no complaints besides some weakness Review of Systems Review of Systems: All systems reviewed & are unremarkable except as noted in Subjective Physical Exam Physical Exam: GENERAL: slim, pleasant, looks younger than stated age, in NAD HEENT: NC/AT. Pale palpebral conjunctivae NECK : Supple, no tenderness CHEST : CTA, no tenderness HEART : RRR, no obvious murmurs ABDOMEN: Some distention, nontender EXTREMITIES : No LE swelling/tenderness, moves extremities SKIN: Pallor, warm NEUROLOGIC : awake and alert, no facial asymmetry, speech fluent, marked short- term memory impairment, moves extremities, gait and stance not assessed Results & Data Results & Data Vital Signs (Past 12 Hours) Vital Signs Temp Pulse Pulse Resp BP BP Pulse Ox 06/23/23 05:00 66 13 95 06/23/23 04:30 64 12 94 06/23/23 04:01 71 15 97 06/23/23 04:01 112/61 06/23/23 04:00 65 13 94 06/23/23 03:30 75 15 92 06/23/23 03:00 75 16 97 06/23/23 02:30 70 14 94 06/23/23 02:00 70 14 93 06/23/23 01:30 74 14 93 06/23/23 01:00 101 H 17 92 06/23/23 00:30 81 20 94 06/23/23 05:25 36.9 C 95 06/23/23 01:39 06/23/23 01:23 06/23/23 00:09 36.8 C 06/23/23 00:00 81 16 94 06/23/23 00:00 122/58 L 06/22/23 23:38 82 14 06/22/23 23:38 114/60 06/22/23 23:00 152 H 13 06/22/23 22:30 166 H 28 H 06/22/23 22:00 154 H 18 06/22/23 21:30 93 H 20 06/22/23 21:00 90 16 06/22/23 20:30 87 14 06/22/23 22:53 37.8 C H 06/22/23 22:42 39.4 C H 146 H 24 118/71 94 Pulse Ox O2 Del Method O2 Del Method 06/23/23 05:00 06/23/23 04:30 06/23/23 04:01 06/23/23 04:01 06/23/23 04:00 06/23/23 03:30 06/23/23 03:00 06/23/23 02:30 06/23/23 02:00 06/23/23 01:30 06/23/23 01:00 06/23/23 00:30 06/23/23 05:25 Room Air 06/23/23 01:39 95 Room Air 06/23/23 01:23 Room Air 06/23/23 00:09 06/23/23 00:00 Room Air 06/23/23 00:00 06/22/23 23:38 06/22/23 23:38 06/22/23 23:00 06/22/23 22:30 06/22/23 22:00 06/22/23 21:30 06/22/23 21:00 06/22/23 20:30 06/22/23 22:53 06/22/23 22:42 Room Air Laboratory Results 06/23/23 06/23/23 06/23/23 Range/Units 06:05 04:16 04:16 WBC 4.96 (4.8-10.8) K/ul RBC 2.57 L (4.20-5.40) M/uL Hgb 8.1 L (12.0-16.0) g/dl Hct 23.9 L (37.0-47.0) % MCV 93.0 (80.0-100.0) fL MCH 31.5 (25.0-34.0) pg MCHC 33.9 (32.0-36.0) g/dL RDW Std Deviation 50.4 H (36.4-46.3) fL RDW Coeff of Amena 14.6 H (11.5-14.5) % Plt Count 143 (130-400) K/uL MPV 8.9 L (9.4-12.4) fL Polychromasia Peripher Smr Path Cons Sodium 133 L (136-145) mmol/L Potassium 4.0 (3.5-5.1) mmol/L Chloride 107 (98-107) mmol/L Carbon Dioxide 21 (21-32) mmol/L Anion Gap 5 (3-11) BUN 14 (6-23) mg/dl Creatinine 0.73 (0.6-1.2) mg/dl Est Cr Clr Drug Dosing 57.5 ml/min Est GFR ( Amer) 92.7 ml/min Est GFR (Non-Af Amer) 80.0 ml/min BUN/Creatinine Ratio 19.2 (10-20) Glucose 125 H (70-99(Fasting)) mg/dl Estimat Average Glucose mg/dl Hemoglobin A1c (4.5-5.6) % Calcium 7.5 L (8.6-10.3) mg/dl Urine Color Urine Appearance (Clear) Urine pH (4.5-7.5) Ur Specific [place] (1.000-1.030) Urine Protein (Negative) Urine Glucose (UA) (Negative) Urine Ketones (Negative) Urine Blood (Negative) Urine Nitrite (Negative) Urine Bilirubin (Negative) Urine Urobilinogen (Negative) Ur Leukocyte Esterase (Negative) Urine WBC (Auto) (0-5) /hpf Urine RBC (Auto) (0-4) /hpf U Hyaline Cast (Auto) (0-5) /lpf U Epithel Cells (Auto) (0-5) /lpf Urine Bacteria (Auto) (Negative) Nasal Screen MRSA (PCR) Negative (Negative) Lyme Disease IgG Ab (Negative) Lyme IgG (Western Blot) Lyme IgG 18 kDa Band Lyme IgG 23 kDa Band Lyme IgG 28 kDa Band Lyme IgG 30 kDa Band Lyme IgG 39 kDa Band Lyme IgG 41 kDa Band Lyme IgG 45 kDa Band Lyme IgG 58 kDa Band Lyme IgG 66 kDa Band Lyme IgG 93 kDa Band Lyme IgM Ab (WB) Lyme Disease IgM Ab (Negative) Lyme IgM 23 kDa Band Lyme IgM 39 kDa Band Lyme IgM 41 kDa Band 06/22/23 06/22/23 06/22/23 Range/Units Unknown Unknown 04:14 WBC (4.8-10.8) K/ul RBC (4.20-5.40) M/uL Hgb (12.0-16.0) g/dl Hct (37.0-47.0) % MCV (80.0-100.0) fL MCH (25.0-34.0) pg MCHC (32.0-36.0) g/dL RDW Std Deviation (36.4-46.3) fL RDW Coeff of Amena (11.5-14.5) % Plt Count (130-400) K/uL MPV (9.4-12.4) fL Polychromasia Peripher Smr Path Cons Cancelled Sodium (136-145) mmol/L Potassium (3.5-5.1) mmol/L Chloride (98-107) mmol/L Carbon Dioxide (21-32) mmol/L Anion Gap (3-11) BUN (6-23) mg/dl Creatinine (0.6-1.2) mg/dl Est Cr Clr Drug Dosing ml/min Est GFR ( Amer) ml/min Est GFR (Non-Af Amer) ml/min BUN/Creatinine Ratio (10-20) Glucose (70-99(Fasting)) mg/dl Estimat Average Glucose 88 mg/dl Hemoglobin A1c 4.7 (4.5-5.6) % Calcium (8.6-10.3) mg/dl Urine Color Dark Yellow Urine Appearance Clear (Clear) Urine pH 5.5 (4.5-7.5) Ur Specific [place] 1.022 (1.000-1.030) Urine Protein 1+ H (Negative) Urine Glucose (UA) Negative (Negative) Urine Ketones 1+ H (Negative) Urine Blood 3+ H (Negative) Urine Nitrite Negative (Negative) Urine Bilirubin Negative (Negative) Urine Urobilinogen Negative (Negative) Ur Leukocyte Esterase Negative (Negative) Urine WBC (Auto) 1-5 (0-5) /hpf Urine RBC (Auto) 10-30 H (0-4) /hpf U Hyaline Cast (Auto) 1-5 (0-5) /lpf U Epithel Cells (Auto) >30 H (0-5) /lpf Urine Bacteria (Auto) Negative (Negative) Nasal Screen MRSA (PCR) (Negative) Lyme Disease IgG Ab (Negative) Lyme IgG (Western Blot) Lyme IgG 18 kDa Band Lyme IgG 23 kDa Band Lyme IgG 28 kDa Band Lyme IgG 30 kDa Band Lyme IgG 39 kDa Band Lyme IgG 41 kDa Band Lyme IgG 45 kDa Band Lyme IgG 58 kDa Band Lyme IgG 66 kDa Band Lyme IgG 93 kDa Band Lyme IgM Ab (WB) Lyme Disease IgM Ab (Negative) Lyme IgM 23 kDa Band Lyme IgM 39 kDa Band Lyme IgM 41 kDa Band 06/22/23 06/21/23 06/21/23 Range/Units 04:14 23:27 23:27 WBC (4.8-10.8) K/ul RBC (4.20-5.40) M/uL Hgb (12.0-16.0) g/dl Hct (37.0-47.0) % MCV (80.0-100.0) fL MCH (25.0-34.0) pg MCHC (32.0-36.0) g/dL RDW Std Deviation (36.4-46.3) fL RDW Coeff of Amena (11.5-14.5) % Plt Count (130-400) K/uL MPV (9.4-12.4) fL Polychromasia 1+ Peripher Smr Path Cons Sodium (136-145) mmol/L Potassium (3.5-5.1) mmol/L Chloride (98-107) mmol/L Carbon Dioxide (21-32) mmol/L Anion Gap (3-11) BUN (6-23) mg/dl Creatinine (0.6-1.2) mg/dl Est Cr Clr Drug Dosing ml/min Est GFR ( Amer) ml/min Est GFR (Non-Af Amer) ml/min BUN/Creatinine Ratio (10-20) Glucose (70-99(Fasting)) mg/dl Estimat Average Glucose mg/dl Hemoglobin A1c (4.5-5.6) % Calcium (8.6-10.3) mg/dl Urine Color Urine Appearance (Clear) Urine pH (4.5-7.5) Ur Specific [place] (1.000-1.030) Urine Protein (Negative) Urine Glucose (UA) (Negative) Urine Ketones (Negative) Urine Blood (Negative) Urine Nitrite (Negative) Urine Bilirubin (Negative) Urine Urobilinogen (Negative) Ur Leukocyte Esterase (Negative) Urine WBC (Auto) (0-5) /hpf Urine RBC (Auto) (0-4) /hpf U Hyaline Cast (Auto) (0-5) /lpf U Epithel Cells (Auto) (0-5) /lpf Urine Bacteria (Auto) (Negative) Nasal Screen MRSA (PCR) (Negative) Lyme Disease IgG Ab Negative (Negative) Lyme IgG (Western Blot) Pending Lyme IgG 18 kDa Band Pending Lyme IgG 23 kDa Band Pending Lyme IgG 28 kDa Band Pending Lyme IgG 30 kDa Band Pending Lyme IgG 39 kDa Band Pending Lyme IgG 41 kDa Band Pending Lyme IgG 45 kDa Band Pending Lyme IgG 58 kDa Band Pending Lyme IgG 66 kDa Band Pending Lyme IgG 93 kDa Band Pending Lyme IgM Ab (WB) Pending Lyme Disease IgM Ab Equivocal A (Negative) Lyme IgM 23 kDa Band Pending Lyme IgM 39 kDa Band Pending Lyme IgM 41 kDa Band Pending Medications Administered Current Inpatient Medications Acetaminophen (Acetaminophen 325 Mg Tab) 650 mg PO Q4H PRN PRN Reason: Pain or Fever Stop: 07/22/23 01:38 Ferrous Sulfate (Ferrous Sulfate 325 Mg Tab) 325 mg PO DAILY@1200 [facility] Stop: 07/24/23 11:59 Fluoxetine HCl (Fluoxetine Hcl 20 Mg Cap) 40 mg PO DAILY [facility] Stop: 07/22/23 09:14 Last Admin: 06/23/23 08:00 Dose: 40 mg Promethazine HCl 6.25 mg/ (Sodium Chloride) 50.25 mls @ 201 mls/hr IV Q6H PRN PRN Reason: Nausea And Vomiting Stop: 07/22/23 01:38 Doxycycline Hyclate 100 mg/ (Dextrose) 110 mls @ 50 mls/hr IV Q12H [facility] Stop: 07/02/23 22:59 Last Infusion: 06/23/23 13:33 Dose: Infused Cefepime HCl 2,000 mg/ Syringe 20 mls @ 5 mls/min IV Q12H [facility]; Protocol Stop: 06/25/23 09:59 Last Admin: 06/23/23 11:29 Dose: 5 mls/min Sodium Chloride (Nss 1000ml) 1,000 mls @ 80 mls/hr IV .[id number] [facility] Stop: 07/22/23 23:50 Last Admin: 06/23/23 16:42 Dose: 80 mls/hr Latanoprost (Latanoprost 0.005% Op Soln 2.5 Ml Btl) 1 drops OP QPM [facility] Stop: 07/22/23 01:38 Last Admin: 06/22/23 20:32 Dose: 1 drops Levothyroxine Sodium (Levothyroxine Sodium 25 Mcg Tablet) 25 mcg PO DAILYBB [facility] Stop: 07/22/23 06:29 Last Admin: 06/23/23 06:13 Dose: 25 mcg Metoprolol Succinate (Metoprolol Succ 25mg Ext Rel Tab) 25 mg PO DAILY [facility] Stop: 07/22/23 08:59 Last Admin: 06/23/23 08:00 Dose: 25 mg Multivitamins/Folic Acid/Vitamin C (Multivitamin Chewable Tab) 1 tab PO QAM [facility] Stop: 07/23/23 18:59 Rivaroxaban (Rivaroxaban 20 Mg Tab) 20 mg PO QDD [facility] Stop: 07/22/23 16:29 Last Admin: 06/23/23 16:42 Dose: 20 mg Vitamin B Complex (Vitamin B Complex Tab) 1 tab PO DAILY [facility] Stop: 07/22/23 08:59 Last Admin: 06/23/23 08:00 Dose: 1 tab
[2023-06-23] MEDS: DOXYCYCLINE HYCLATE 100 MG in DEXTROSE 5% 100 ML IV SCH ×2 (11:29→20:46)
[2023-06-23] MEDS: CEFEPIME 2,000 MG in SYRINGE 0 ML IV SCH ×2 (11:29→20:46)
[2023-06-23] MEDS: RIVAROXABAN 20 MG TAB PO SCH (16:42)
[2023-06-23 17:57] LABS: 18KDIGG Band NON-REACTIVE; 23KDIGG Band NON-REACTIVE; 23KDIGM Band NON-REACTIVE; 28KDIGG Band NON-REACTIVE; 30KDIGG Band NON-REACTIVE; 39KDIGG Band NON-REACTIVE; 39KDIGM Band NON-REACTIVE; 41KDIGG Band REACTIVE; 41KDIGM Band NON-REACTIVE; 45KDIGG Band NON-REACTIVE; 58KDIGG Band NON-REACTIVE; 66KDIGG Band NON-REACTIVE; 93KDIGG Band NON-REACTIVE; Lyme Antibodies, WB IgG NEGATIVE (NEGATIVE); Lyme Antibodies, WB IgM NEGATIVE (NEGATIVE)
[2023-06-23] MEDS: MULTIVITAMIN CHEWABLE TAB PO SCH (19:59)
[2023-06-23] MEDS: LATANOPROST 0.005% OP SOLN 2.5 ML BTL OP SCH (20:46)
[2023-06-24 05:12] LABS: Hematocrit (blood only) 25.7 % (37.0-47.0); Hemoglobin 8.9 g/dl (12.0-16.0)
[2023-06-24 05:27] LABS: Albumin Globulin Ratio 0.8 (0.9-2); Albumin Level 2.3 gm/dl (3.4-5.0); Bilirubin,Total 0.5 mg/dl (0.2-1.0); Creatinine Clr Calc Pharmacy 70.4 ml/min; Est GFR (African American) 102.6 ml/min; Est GFR (Non-African American) 88.5 ml/min; Magnesium 1.7 mg/dl (1.7-2.4); Phosphorus 2.2 mg/dl (2.5-4.9); Potassium 3.7 mmol/L (3.5-5.1); Total Protein 5.3 gm/dl (6.0-8.3)
[2023-06-24] MEDS: SODIUM CHLORIDE 0.9% 1000ML 1,000 ML IV SCH ×2 (05:42→16:06)
[2023-06-24] MEDS: LEVOTHYROXINE SODIUM 25 MCG TABLET PO SCH (05:42)
--- NOTE | 2023-06-24 06:28 | Electrocardiogram Report ---
Test Reason : Blood Pressure : / mmHG Vent. Rate : 079 BPM Atrial Rate : 079 BPM P-R Int : 120 ms QRS Dur : 076 ms QT Int : 380 ms P-R-T Axes : 049 059 -71 degrees QTc Int : 435 ms Sinus rhythm with Premature supraventricular complexes Abnormal ECG When compared with ECG of 27-APR-2019 18:15, Sinus rhythm has replaced Atrial fibrillation Inverted T waves have replaced nonspecific T wave abnormality in Anterolateral leads Confirmed by Jagdish Marte ([id number]) on 06/24/2023 6:28:07 AM Referred By: REFERRED SELF Confirmed By:Jagdish Marte
[2023-06-24] MEDS ORDERED: POTASSIUM CHLORIDE CRTAB 20 MEQ TABCR PO STA (08:44)
[2023-06-24] MEDS: MAGNESIUM OXIDE 400 MG TAB PO SCH (09:39)
[2023-06-24] MEDS: METOPROLOL SUCC 25MG EXT REL TAB PO SCH (09:39)
[2023-06-24] MEDS: MULTIVITAMIN CHEWABLE TAB PO SCH (09:39)
[2023-06-24] MEDS: CEFEPIME 2,000 MG in SYRINGE 0 ML IV SCH ×2 (09:40→18:24)
[2023-06-24] MEDS: FLUoxetine HCL 20 MG CAP PO SCH (09:40)
[2023-06-24] MEDS: VITAMIN B COMPLEX TAB PO SCH (09:40)
[2023-06-24] MEDS: DOXYCYCLINE HYCLATE 100 MG in DEXTROSE 5% 100 ML IV SCH ×2 (11:57→23:34)
[2023-06-24] MEDS ORDERED: FERROUS SULFATE 325 MG TAB PO SCH (12:00)
[2023-06-24] MEDS: RIVAROXABAN 20 MG TAB PO SCH (16:06)
--- NOTE | 2023-06-24 20:11 | Electrocardiogram Report ---
Test Reason : Blood Pressure : / mmHG Vent. Rate : 169 BPM Atrial Rate : 300 BPM P-R Int : 000 ms QRS Dur : 084 ms QT Int : 282 ms P-R-T Axes : 000 068 -33 degrees QTc Int : 472 ms Atrial flutter with variable A-V block with premature ventricular or aberrantly conducted complexes Nonspecific ST and T wave abnormality Abnormal ECG When compared with ECG of 21-JUN-2023 20:45, Atrial flutter has replaced Sinus rhythm Vent. rate has increased BY 90 BPM Nonspecific T wave abnormality has replaced inverted T waves in Inferior leads T wave inversion no longer evident in Anterior leads Confirmed by Jagdish Marte ([id number]) on 06/24/2023 8:10:40 PM Referred By: REFERRED SELF Confirmed By:Jagdish Marte
[2023-06-24] MEDS: LATANOPROST 0.005% OP SOLN 2.5 ML BTL OP SCH (21:00)
[2023-06-25] MEDS: CEFEPIME 2,000 MG in SYRINGE 0 ML IV SCH (02:33)
[2023-06-25 05:20] LABS: Creatinine Clr Calc Pharmacy 64.3 ml/min; Est GFR (Non-African American) 85.4 ml/min
[2023-06-25] MEDS: LEVOTHYROXINE SODIUM 25 MCG TABLET PO SCH (05:52)
--- NOTE | 2023-06-25 07:57 | Hospitalist Progress Note ---
Date of Service June 24, 2023 Assessment & Plan (1) Pre-syncope: Plan: Not clear etiology - Likely secondary to orthostasis secondary to hypovolemia from decreased p.o. intake from depression/possible dementia/recent diarrheal illness/ ? lyme dis. Patient hypotensive upon arrival at the ER. UTI was ruled out Pt febrile overnight Blood culture pending Initially on empiric ceftriaxone, now on cefepime and doxy - pending cultures and tick born studies Pt reports seeing a tick on her leg IgG lyme -one band reactive and IgM Lyme equivocal, will cont. to treat for possible Lyme disease babesia, anaplasma, ehrlichia - pending Because of report of poss. slurred speech, CT head was obtained in the ED CT head negative MRI brain obtained - also negative for acute pathology - 1. No acute intracranial abnormality. 2. Involutional changes with mild chronic microvascular ischemic disease. Anemia - likely iron def. anemia as iron level low FOBT on admission negative, and repeat FOBT negative B12 and folic acid wnl peripheral smear - Pathology consult, (moderate complexity): The peripheral blood smear, CBC, other pertinent tests and clinical history (Reason for consult: anemia, other history: Pre-syncope, recent tick bite) are reviewed. The smear shows normochromic, normocytic appearing erythrocytes without anisopoikilocytosis. No significant number of schistocytes or spherocytes is identified. Polychromatophilic cells (a subset of reticulocytes) are noted. Leukocytes are mildly decreased in number due to decreased lymphocytes. Leukocyte morphology is unremarkable and I do not see band forms or intracytoplasmic inclusions. Platelets appear unremarkable in number and are morphologically unremarkable. The associated CBC shows WBC 4.6 and HGB of 9.5 with normal MCV. ALC is depressed at 0.97. Folate and B12 are unremarkable. Serum iron is low while ferritin is elevated. No overt changes of a myelodysplastic syndrome or hemolytic anemia are seen. The reviewed findings are consistent with a non-specific normochromic, normocytic anemia (potentially anemia of chronic disease with an element of iron deficiency) and leukopenia. transfuse PRBC if hemoglobin less than 7 and or symptomatic anemia cont. to monitor H&H Follow up as outpt, start iron suppl. PAF on xarelto valvular heart disease (moderate MR/TR) pulmonary hypertension hypothyroidism, euthyroid as of current TSH Hyperglycemia rule out DM, current a1c 4.7% Probable functional disability Psych consult re: suboptimal depression, follow up as outpt PT OT eval DVT prophylaxis. Mayra Full code Patient son Mr. Kristofer Saleem, contact #[phone]. Admission and Anticipated Discharge Date Admission Date: June 23, 2023 Subjective Pt seen in follow up - weakness, slurred speech, ams Per son, short term memory is worse Pt reports she forgets to eat and drink at home Pt was febrile and had elev. HR - aflutter - while inpt, now afebrile and no more episodes of elev. HR Blood cultx negative so far Currently pt is sitting up in chair in NAD Son present at the bedside again - discussed in detail DC plan Pt reports no complaints besides some weakness Will remove Pike and ambulate the pt, CM involved in HH planning Review of Systems Review of Systems: All systems reviewed & are unremarkable except as noted in Subjective Physical Exam Physical Exam: GENERAL: slim, pleasant, looks younger than stated age, in NAD HEENT: NC/AT. Pale palpebral conjunctivae NECK : Supple, no tenderness CHEST : CTA, no tenderness HEART : RRR, no obvious murmurs ABDOMEN: Some distention, nontender EXTREMITIES : No LE swelling/tenderness, moves extremities SKIN: Pallor, warm NEUROLOGIC : awake and alert, no facial asymmetry, speech fluent, marked short- term memory impairment, moves extremities, gait and stance not assessed Results & Data Results & Data Vital Signs (Past 12 Hours)
[2023-06-25] MEDS: MULTIVITAMIN CHEWABLE TAB PO SCH (09:23)
[2023-06-25] MEDS: VITAMIN B COMPLEX TAB PO SCH (09:24)
[2023-06-25] MEDS: METOPROLOL SUCC 25MG EXT REL TAB PO SCH (09:24)
[2023-06-25] MEDS: MAGNESIUM OXIDE 400 MG TAB PO SCH (09:24)
[2023-06-25] MEDS: FLUoxetine HCL 20 MG CAP PO SCH (09:24)
--- NOTE | 2023-06-25 10:05 | Discharge Summary ---
Date of Service June 25, 2023 Admission HPI Per Admitting Provider History obtained from patient, family, and records. Limited history from patient secondary to memory impairment. Medical history significant for PAF on Eliquis, valvular heart disease (moderate MR/TR), pulmonary hypertension, hypothyroidism, mood disorder, osteoarthritis, mild cognitive impairment/dementia as per records. Last confinement 2018 for new onset A-fib. Patient discharged on Toprol and Xarelto medications. Patient and family noted memory decline since start of pandemic in 2019. Isolation from losing job and suicide among family members ( and son). Mostly short-term memory loss. Patient exhibiting strange behaviors like putting cheese in her car as per outpatient documentation. Patient evaluated by [facility] neurologist for memory issues last January 2023 following referral by PCP. MMSE was 19/30. Impression was mild cognitive impairment. Specialist discussed additional neuropsychological evaluation recommended. Driving cessation and living situation concerns discussed with patient's only living son lives in [place], [place] over the phone by specialist. Progressive short-term memory decline noted over the last few months. Patient would not remember if she took her pills. Patient not eating as much as per son. Patient admits to being depressed but denies suicidality. She does not think her Prozac medication by a specialist she does not like is helping. Patient son received phone call from patient's neighbor that patient was noted to be weak, shaky at home with slurred speech. Diarrhea symptoms which patient denies. Lightheadedness symptoms without chest pain, SOB, abdominal pain. Denies black/bloody stools. Patient thinks she was bitten by a tick on the right leg 4 days ago. Patient son drove to [place] from [place], [place] to check on his mother. Patient not slurring when son saw her. She agreed to come to the ER to get checked out. Patient has poor recollection of the events prior to ER arrival. SBP 90s upon arrival at the ER. 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 Admission Exam Per Admitting Provider GENERAL: Coherent, comfortable, pleasant, looks younger than stated age, no respiratory distress SKIN: Pallor, warm HEENT: Pale palpebral conjunctivae, no ptosis, dry buccal mucosa NECK : Supple, no tenderness CHEST : CTA, no tenderness HEART : RRR, no obvious murmurs ABDOMEN: Some distention, nontender RECTAL : Intact sphincter, brown stool (FOBT negative) EXTREMITIES : No LE swelling/tenderness, no other conspicuous deformities noted NEUROLOGIC : Coherent, no facial asymmetry, marked short-term memory impairment, gait and stance not assessed Principal Diagnosis Fever, weakness likely secondary to poor oral intake and lyme disease Discharge Exam GENERAL: slim, pleasant, looks younger than stated age, in NAD HEENT: NC/AT. Pale palpebral conjunctivae NECK : Supple, no tenderness CHEST : CTA, no tenderness HEART : RRR, no obvious murmurs ABDOMEN: Some distention, nontender EXTREMITIES : No LE swelling/tenderness, moves extremities SKIN: Pallor, warm NEUROLOGIC : awake and alert, no facial asymmetry, speech fluent, marked short- term memory impairment, moves extremities Discharge Data Allergies Allergy/AdvReac Type Severity Reaction Status Date / Time hydroxychloroquine Allergy Severe rash, hives Verified 06/09/22 09:49 [From Plaquenil] adhesive Allergy Unknown SWELLING Verified 06/09/22 09:49 AND REDNESS LOCALLY oxycodone Allergy Unknown Unknown Verified 06/21/23 23:27 codeine AdvReac Unknown NAUSEA AND Verified 06/09/22 09:49 VOMITING morphine AdvReac Unknown NAUSEA AND Verified 06/09/22 09:49 VOMITING Consultations 06/21/23 23:13 ED Decision to Admit Stat 06/22/23 06:45 Consult Behavioral Health Liaison Routine Ordered Studies 06/21/23 21:05 CT Brain [CT head/brain wo con] Stat FINDINGS: No acute intracranial hemorrhage. No midline shift or mass effect. The territorial marino-white matter differentiation is maintained throughout. Age-related cerebral volume loss. Periventricular and subcortical white matter hypoattenuation, consistent with chronic microangiopathy. The visualized orbits appear grossly unremarkable. The calvarium is intact. The visualized paranasal sinuses and mastoid air cells are grossly clear. IMPRESSION: No acute intracranial hemorrhage, midline shift, or mass effect. 06/22/23 13:28 MRI Brain [MR brain wo con] Routine FINDINGS: No restricted diffusion. Degenerative changes of the imaged cervical spine. Midline structures are otherwise unremarkable. Marcelino-cisterna magna. No acute intracranial hemorrhage, midline shift, abnormal extra-axial collection, hydrocephalus or intracranial mass. No pathologic blooming artifact. Involutional changes of the brain parenchyma with mild T2/FLAIR hyperintense foci throughout the white matter. Cerebral venous sinuses and major arterial flow voids appear patent. Skull, orbits and soft tissues are unremarkable. Prior bilateral lens repair. Minimal mucosal thickening of the paranasal sinuses. IMPRESSION: 1. No acute intracranial abnormality. 2. Involutional changes with mild chronic microvascular ischemic disease. Hospital Course (1) Pre-syncope: Not clear etiology - Likely secondary to orthostasis secondary to hypovolemia from decreased p.o. intake from depression/possible dementia/recent diarrheal illness/ ? lyme dis. Patient hypotensive upon arrival at the ER. UTI was ruled out Pt febrile overnight Blood culture - negat. for 48 hrs - final results pending Initially on empiric ceftriaxone, now on cefepime and doxy - pending cultures and tick born studies Pt reports seeing a tick on her leg IgG lyme -one band reactive and IgM Lyme equivocal, will cont. to treat for possible Lyme disease babesia, anaplasma, ehrlichia - pending Because of report of poss. slurred speech, CT head was obtained in the ED CT head negative MRI brain obtained - also negative for acute pathology - 1. No acute intracranial abnormality. 2. Involutional changes with mild chronic microvascular ischemic disease. Anemia - likely iron def. anemia as iron level low FOBT on admission negative, and repeat FOBT negative B12 and folic acid wnl peripheral smear - Pathology consult, (moderate complexity): The peripheral blood smear, CBC, other pertinent tests and clinical history (Reason for consult: anemia, other history: Pre-syncope, recent tick bite) are reviewed. The smear shows normochromic, normocytic appearing erythrocytes without anisopoikilocytosis. No significant number of schistocytes or spherocytes is identified. Polychromatophilic cells (a subset of reticulocytes) are noted. Leukocytes are mildly decreased in number due to decreased lymphocytes. Leukocyte morphology is unremarkable and I do not see band forms or intracytoplasmic inclusions. Platelets appear unremarkable in number and are morphologically unremarkable. The associated CBC shows WBC 4.6 and HGB of 9.5 with normal MCV. ALC is depressed at 0.97. Folate and B12 are unremarkable. Serum iron is low while ferritin is elevated. No overt changes of a myelodysplastic syndrome or hemolytic anemia are seen. The reviewed findings are consistent with a non-specific normochromic, normocytic anemia (potentially anemia of chronic disease with an element of iron deficiency) and leukopenia. transfuse PRBC if hemoglobin less than 7 and or symptomatic anemia cont. to monitor H&H Follow up as outpt, start iron suppl. PAF on xarelto valvular heart disease (moderate MR/TR) pulmonary hypertension hypothyroidism, euthyroid as of current TSH Hyperglycemia rule out DM, current a1c 4.7% Probable functional disability Psych consult re: suboptimal depression, follow up as outpt Disposition : had a long discussion with the pt and her son - CM involved and will arrange home health services for the pt. Recommend pt's son attend as many outpatient physician's visits as possible as pt's memory is impaired. Total Time Total Time Spent Total Time Spent (In Minutes): 40 Discharge Plan Discharge Items Patient Disposition: Home - Self-Care Reason For Visit: NEAR SYNCOPE Discharge Diagnosis: Fever, weakness likely secondary to poor oral intake and lyme disease Activity: Per Instructions section Non-emergency contact: Primary Care Provider Call non-emergency contact if: you have any medication questions and your symptoms worsen Follow-up/Referrals: Corby Kang MD [Primary Care Provider] - (Date & Time 07/06/2023 2:40 PM Provider Corby Kang MD Department Family Practice [facility] ) Diet: Regular Addtl Attending Provider Instructions: Follow up with your primary care doctor, the appointment was scheduled for you for 07/06/2023. Finish antibiotic treatment with doxycycline for presumed Lyme disease. It is important that you eat regularly and drink plenty of fluids. Pending Studies at Discharge: Yes Studies:: tick born studies, final blood cultures Stand-Alone Forms: [facility], Smoking Cessation Medications and DC Order Prescriptions: New doxycycline hyclate 100 mg capsule 100 mg PO BID 7 Days Qty: 14 0RF Continued metoprolol succinate 25 mg tablet extended release 24 hr 25 mg PO DAILY Qty: 90 3RF latanoprost 0.005 % drops 1 drops OP QPM levothyroxine 25 mcg tablet 25 mcg PO DAILY biotin 2,500 mcg capsule 2,500 mcg PO DAILY ferrous sulfate [Feosol] 325 mg (65 mg iron) tablet 325 mg PO DAILY magnesium 250 mg tablet 250 mg PO DAILY diltiazem HCl 120 mg capsule,extended release 24 hr 120 mg PO DAILY PRN (Reason: as needed for exercise) Qty: 30 2RF Rx Instructions: take as needed when planning a walk cholecalciferol (vitamin D3) [Vitamin D3] 1,000 unit Capsule 1,000 unit PO QAM omega 0-piy-dvr-fish oil [Fish Oil] 1,000 mg (120 mg-180 mg) Capsule 1 cap PO QAM Xarelto 20 mg tablet 20 mg PO DAILY Qty: 30 0RF Rx Instructions: must administer with evening meal estradiol 1 mg tablet 2 mg PO QAM vitamin B complex [Super B Complex] Tablet 1 tab PO DAILY vitamin E-zinc gluconate Capsule 1 cap PO DAILY fluoxetine 40 mg capsule 40 mg PO DAILY Discharge Orders: Discharge Order (Routine); Ordered 06/25/23 Ordered By: Freeman Stringer Admission Data Admit Date/Time: 06/23/23 18:14 Attending Provider: Freeman Stringer Admit Provider: Freeman Stringer Primary Care Provider: Corby Kang Other Providers: Rene Sigala ; Luisito Bonner ; [facility],Home Health
--- NOTE | 2023-06-25 13:44 | Electrocardiogram Report ---
Test Reason : Blood Pressure : / mmHG Vent. Rate : 063 BPM Atrial Rate : 063 BPM P-R Int : 102 ms QRS Dur : 082 ms QT Int : 398 ms P-R-T Axes : 048 071 -01 degrees QTc Int : 407 ms Sinus rhythm T wave abnormality, consider anterior ischemia Abnormal ECG When compared with ECG of 22-JUN-2023 22:10, Sinus rhythm has replaced Atrial flutter Vent. rate has decreased BY [address] no longer depressed in Lateral leads T wave inversion now evident in Anterior leads Confirmed by Joel Wood ([id number]) on 06/25/2023 1:44:16 PM Referred By: REFERRED SELF Confirmed By:Robbie Wood
[2023-06-28 01:38] LABS: Babesia microti DNA Detected (Not Detected)
[2023-06-29 01:27] LABS: Babesia microti DNA Detected (Not Detected); Ehrlichia chaff IgG Ab <1:64 (<1:64); Ehrlichia chaff IgM Ab <1:20 (<1:20)
== END 2023-06-25 12:25 | disposition home health service (06) | DRG 869 ==
LOC: EDINP 18:16 → ED 18:16 → SUATTDRO 06-22 00:45 → 2W 06-22 01:39 → 1E 06-22 23:42 → SUATTDRO 06-23 18:14 → 1E 06-24 09:58

== ENCOUNTER 2023-11-11 01:50 | Inpatient (IN) ==
[2023-11-11] MEDS ORDERED: METOPROLOL TARTRATE 1 MG/ML VIAL IV STA ×3 (02:14→03:29)
[2023-11-11] MEDS ORDERED: SODIUM CHLORIDE 0.9% 500 ML IV ONE (02:14)
--- NOTE | 2023-11-11 02:17 | Emergency Department Note ---
Impression & Plan Atrial fibrillation with RVR, Left-sided chest pain ED Provider Note Name: CALI CHAUDHRY Age: 78 Sex: Female Arrives Via: Ambulance Informant: Patient (poor historian), EMS ED Provider: Darek Bee MD Chief Complaint: Chest pain Impression: As Per Impressions Above Medical Decision Makin yr old female with left-sided chest pain who called [phone]. On arrival though patient is not having quite a chest pain she might of had earlier though is difficult to tell as she has some dementia. She is in A-fib RVR. She was given Lopressor 5 mg IV x 3 and some IV fluids. Heart rate has come down some though she is still in A-fib. She has paroxysmal A-fib but previously has been in normal sinus rhythm. She is anticoagulated. Patient has no further chest pain complaints and does not recall chest pain earlier on repeat evaluations. She is already anticoagulated would hold off on further anticoagulation at this time beyond her baseline meds. EKG is not consistent with STEMI. Otherwise workup is relatively benign. There is no clear evidence of infectious etiology. Will bring in for further management of A-fib RVR. Triage/Nursing Notes reviewed by Me Differential:Cardiac ischemia, aortic dissection, pulmonary embolism, pneumothorax, pneumonia, pericarditis, myocarditis, esophageal rupture, GERD, cholecystitis, pancreatitis, musculoskeletal, as well as other pathologies. Vital Signs: reviewed and remarkable for tachy Interventions: Lopressor 5 mg IV x 3, normal saline bolus Labs:ED labs Reviewed by me and remarkable for no significant abnormalities Imagin view chest x-ray as per my informal interpretation reveals no infiltrate or effusion EKG:Per My Interpretation: Indication Chest Pain: Afib RVR 109 bpm, qtc 474 mild anterior/inf depressions. Compared to EKG 06/25/23 rate increased and no longer in NSR. Cardiac/Tele Monitoring: Cardiac Monitoring: An Order was placed for continuous cardiac monitoring. The monitor shows a rate of 100 with a normal sinus rhythm. Consults: Dr Gwendolyn Donis Hospitalist Plan: Disposition:Hospitalization. Condition: Good History of Present Illness: 78-year-old female arrives for evaluation of left- sided chest pain. Patient called 911 due to chest pain. She admits that she does not quite remember everything and that she has memory issues. Per EMS patient complaining of left-sided chest pain for them as well. Patient noted to be in A-fib RVR. She does note that she feels a palpitation and feels like her heart is jumping. She denies any abdominal pain, nausea, difficulty breathing, headache, neck pain, back pain or any other concerning signs or symptoms. She does not recall any recent changes. She believes she is taking all of her medicines. She states her son keeps an eye on her. Per chart patient is on Xarelto for anticoagulation along with being on metoprolol and diltiazem for rate control. Also per chart patient previously in normal sinus rhythm on last visit here. Past Medical History:Hypothyroidism, A-fib paroxysmal, Alzheimer's Home Medications:See Below Allergies:See Below Vitals:Blood Pressure: 155/99, Pulse 115, RR 20, T 36.5C, O2 100% on RA Physical Exam: GENERAL: Patient is mildly anxious appearing and in minimal distress. RESPIRATORY: No dyspnea. Clear to auscultation and equal bilaterally. CARDIOVASCULAR: Irregular, Tachy.No murmur appreciated. GASTROINTESTINAL: Abdomen soft, non-tender, no peritonitis. EXTREMITIES: Normal motion all extremities, no cyanosis, no edema. NEUROLOGIC: Alert and and answering questions though clearly has some memory deficit no focal neurologic deficits appreciated SKIN: No rash, no jaundice, no diaphoresis. PSYCH: Appropriate GCS: 15 ED Course: Times/Reassessments: Multiple reassessments. No further chest pain. HR improved to 90s periodically bumping back up. Critical Care: I have personally spent 35 minutes of critical care time in the direct management of this patient. Afib RVR requiring multiple rounds lopressor iv. This was a life/limb threatening event. This 35 minutes is in excess of all separately billable procedures. Darek Bee MD Past Med/Surg History Medical History (Updated 11/11/23 @ 14:45 by Jagdish Marte MD) Paroxysmal atrial fibrillation Osteoarthritis Menopause Breast cyst Mitral regurgitation Arthritis Surgical History History of tubal ligation S/P abdominal hysterectomy and left salpingo-oophorectomy History of tonsillectomy and adenoidectomy H/O hernia repair S/P dilatation and curettage History of appendectomy Hx of cataract surgery History of total hip replacement Family History Father Myocardial infarction Congestive heart failure Pure hypercholesterolemia Brother Exertional angina Mother Hypotension Social History Smoking Status: Unknown if ever smoked Do You Dip or Chew Tobacco: No; Hx Alcohol Use: No Hx Substance Use: No Preferred Language: Faroese Communication Ability: Effective Salt Maker Required: No Beliefs That Will Affect Care: None marital status: Current Living Situation: Alone Current Living Situation Comment: House current occupational status: employed Feels Safe at Home: Yes Safety Concerns: Feels Safe At This Time Assistive Devices: None Allergies Allergies Allergy/AdvReac Type Severity Reaction Status Date / Time hydroxychloroquine Allergy Severe rash, hives Verified 11/11/23 02:28 [From Plaquenil] adhesive Allergy Intermediate SWELLING Verified 11/11/23 02:28 AND REDNESS LOCALLY metoprolol Allergy Unknown ON [facility] MED Verified 11/11/23 02:28 LIST oxycodone Allergy Unknown ON [facility] MED Verified 11/11/23 02:28 LIST codeine AdvReac Intermediate NAUSEA AND Verified 11/11/23 02:28 VOMITING morphine AdvReac Intermediate NAUSEA AND Verified 11/11/23 02:28 VOMITING Home Meds Home Medications Medication Instructions Recorded Confirmed cholecalciferol (vitamin D3) 25 1,000 unit PO BID 04/27/19 11/11/23 mcg (1,000 unit) capsule (Vitamin D3) latanoprost 0.005 % eye drops 1 drops ophthalmic (eye) QPM 10/09/19 11/11/23 magnesium 250 mg tablet 250 mg PO DAILY 02/25/21 11/11/23 ferrous sulfate 325 mg (65 mg 325 mg PO DAILY 06/09/22 11/11/23 iron) tablet (Feosol) levothyroxine 25 mcg tablet 25 mcg PO DAILY 06/09/22 11/11/23 vitamin B complex 1 tab PO DAILY 06/21/23 11/11/23 fluoxetine 40 mg capsule 40 mg PO DAILY 06/22/23 11/11/23 donepezil 10 mg tablet 10 mg PO DAILY 11/11/23 11/11/23 Previous Rx's Medication Instructions Recorded rivaroxaban 20 mg tablet (Xarelto) 20 mg PO DAILY #30 tabs 04/28/19 diltiazem HCl 120 mg capsule,24 120 mg PO DAILY PRN as needed for 11/25/21 hr,extended release exercise #30 caps metoprolol succinate 25 mg 25 mg PO DAILY #90 tabs 09/08/23 tablet,extended release 24 hr Results & Data (ED) Vital Signs Vital Signs - 24 hr 11/11/23 01:54 11/11/23 01:59 11/11/23 02:27 Temperature 36.5 C Temperature Source Oral Pulse Rate 118 H 115 H 112 H Pulse Rate [Apical] Pulse Rhythm [Apical] Pulse Strength [Apical] Respiratory Rate 20 Respiratory Effort / Characteristics Non-Labored Spontaneous Respiratory Depth Normal Respiratory Pattern Regular Blood Pressure 155/99 H 142/98 H Blood Pressure [Right Arm] Blood Pressure Mean 117 Blood Pressure Mean [Right Arm] Pulse Oximetry 100 Oxygen Delivery Method Room Air Sepsis Recent Fever Within 48 Hours No Sepsis New/Unexplained Change in Mental Status No Sepsis Action Taken by Nursing No Action Required 11/11/23 02:39 11/11/23 03:00 11/11/23 03:15 Temperature Temperature Source Pulse Rate 84 97 H Pulse Rate [Apical] 116 H Pulse Rhythm [Apical] Pulse Strength [Apical] Respiratory Rate 22 Respiratory Effort / Characteristics Non-Labored Spontaneous Respiratory Depth Normal Respiratory Pattern Regular Blood Pressure 146/102 H 144/87 H Blood Pressure [Right Arm] 129/88 Blood Pressure Mean Blood Pressure Mean [Right Arm] 101 Pulse Oximetry 95 Oxygen Delivery Method Room Air Sepsis Recent Fever Within 48 Hours Sepsis New/Unexplained Change in Mental Status Sepsis Action Taken by Nursing 11/11/23 03:45 11/11/23 04:00 11/11/23 04:00 Temperature Temperature Source Pulse Rate 98 H 101 H Pulse Rate [Apical] 92 H Pulse Rhythm [Apical] Regular Pulse Strength [Apical] Normal Respiratory Rate 16 Respiratory Effort / Characteristics Non-Labored Spontaneous Respiratory Depth Normal Respiratory Pattern Regular Blood Pressure 146/101 H 136/81 Blood Pressure [Right Arm] 136/81 Blood Pressure Mean Blood Pressure Mean [Right Arm] 99 Pulse Oximetry 97 Oxygen Delivery Method Room Air Sepsis Recent Fever Within 48 Hours Sepsis New/Unexplained Change in Mental Status Sepsis Action Taken by Nursing Laboratory Data 11/11/23 07:22 11/11/23 07:22 Lab Results 11/11/23 11/11/23 11/11/23 Range/Units 02:00 02:37 03:03 WBC 7.33 (4.8-10.8) K/ul RBC 3.96 L (4.20-5.40) M/uL Hgb 12.1 (12.0-16.0) g/dl Hct 34.9 L (37.0-47.0) % MCV 88.1 (80.0-100.0) fL MCH 30.6 (25.0-34.0) pg MCHC 34.7 (32.0-36.0) g/dL RDW Std Deviation 41.0 (36.4-46.3) fL RDW Coeff of Amena 12.7 (11.5-14.5) % Plt Count 245 (130-400) K/uL MPV 9.7 (9.4-12.4) fL Immature Gran % (Auto) 0.3 % Neut % (Auto) 70.1 % Lymph % (Auto) 19.1 % Callahan % (Auto) 7.6 % Eos % (Auto) 2.5 % Baso % (Auto) 0.4 % Neut # (Auto) 5.14 (1.40-6.50) K/uL Lymph # (Auto) 1.40 (1.20-3.40) K/uL Callahan # (Auto) 0.56 (0.11-0.59) K/uL Eos # (Auto) 0.18 (0.00-0.50) K/uL Baso # (Auto) 0.03 (0.00-0.20) K/uL Immature Gran # (Auto) 0.02 (0.01-0.20) K/uL Sodium 135 L (136-145) mmol/L Potassium 3.5 (3.5-5.1) mmol/L Chloride 101 (98-107) mmol/L Carbon Dioxide 24 (21-32) mmol/L Anion Gap 10 (3-11) BUN 12 (6-23) mg/dl Creatinine 0.67 (0.6-1.2) mg/dl Est Cr Clr Drug Dosing 55.7 ml/min Est GFR ( Amer) 99.0 ml/min Est GFR (Non-Af Amer) 85.4 ml/min BUN/Creatinine Ratio 17.9 (10-20) Glucose 118 H (70-99(Fasting)) mg/dl Calcium 9.3 (8.6-10.3) mg/dl Magnesium 1.8 (1.7-2.4) mg/dl Total Bilirubin 0.7 (0.2-1.0) mg/dl Direct Bilirubin 0.1 (0-0.2) mg/dl AST 26 (13-39) U/L ALT 16 (7-52) U/L Alkaline Phosphatase 66 (34-104) U/L Troponin I High Sens 4.3 (0-14) pg/ml Total Protein 7.0 (6.0-8.3) gm/dl Albumin 4.0 (3.4-5.0) gm/dl Lipase 46 (11-82) U/L Urine Color Yellow Urine Appearance Clear (Clear) Urine pH 8.0 H (4.5-7.5) Ur Specific Fay 1.008 (1.000-1.030) Urine Protein Negative (Negative) Urine Glucose (UA) Negative (Negative) Urine Ketones Trace H (Negative) Urine Blood Trace H (Negative) Urine Nitrite Negative (Negative) Urine Bilirubin Negative (Negative) Urine Urobilinogen Negative (Negative) Ur Leukocyte Esterase Negative (Negative) Urine WBC (Auto) 0 (0-5) /hpf Urine RBC (Auto) 0-4 (0-4) /hpf U Hyaline Cast (Auto) 0 (0-5) /lpf U Epithel Cells (Auto) 0-5 (0-5) /lpf Urine Bacteria (Auto) Negative (Negative) SARS-CoV-2 (PCR) NEGATIVE (Negative) Influenza Type A (PCR) Negative (Neg) Influenza Type B (PCR) Negative (Neg) RSV (RT-PCR) Negative (Neg) Administered Medications Donepezil HCl (Donepezil Hcl 10 Mg Tab) 10 mg PO DAILY PENDING SALE TO [facility] Stop: 12/11/23 08:59 Last Admin: 11/11/23 10:08 Dose: 10 mg Documented By: T Ferrous Sulfate (Ferrous Sulfate 325 Mg Tab) 325 mg PO DAILY PENDING SALE TO [facility] Stop: 12/11/23 08:59 Last Admin: 11/11/23 10:08 Dose: 325 mg Documented By: T Fluoxetine HCl (Fluoxetine Hcl 20 Mg Cap) 40 mg PO DAILY CODI Stop: 12/11/23 08:59 Last Admin: 11/11/23 10:08 Dose: 40 mg Documented By: MRT Latanoprost (Latanoprost 0.005% Op Soln 2.5 Ml Btl) 1 drops OP QPM CODI Stop: 12/11/23 20:59 Last Admin: 11/11/23 21:00 Dose: Not Given Documented By: MARISELA Levothyroxine Sodium (Levothyroxine Sodium 25 Mcg Tablet) 25 mcg PO DAILYBB PENDING SALE TO [facility] Stop: 12/11/23 06:59 Last Admin: 11/11/23 10:08 Dose: 25 mcg Documented By: REED Magnesium Oxide (Magnesium Oxide 400 Mg Tab) 400 mg PO DAILY CODI Stop: 12/11/23 08:59 Last Admin: 11/11/23 10:08 Dose: 400 mg Documented By: REED Metoprolol Succinate (Metoprolol Succ 25mg Ext Rel Tab) 25 mg PO DAILY CODI Stop: 12/11/23 08:59 Last Admin: 11/11/23 10:09 Dose: 25 mg Documented By: REED Rivaroxaban (Rivaroxaban 20 Mg Tab) 20 mg PO QDD PENDING SALE TO [facility] Stop: 12/11/23 16:29 Last Admin: 11/11/23 16:40 Dose: 20 mg Documented By: REED Vitamin B Complex (Vitamin B Complex Tab) 1 tab PO DAILY CODI Stop: 12/11/23 08:59 Last Admin: 11/11/23 10:08 Dose: 1 tab Documented By: REED Vitamin D (Cholecalciferol 1,000 Units 25 Mcg Tab) 1,000 units PO BID PENDING SALE TO [facility] Stop: 12/11/23 08:59 Last Admin: 11/11/23 19:46 Dose: 1,000 units Documented By: Admin: 11/11/23 10:09 Dose: 1,000 units Documented By: REED Discontinued Medications Sodium Chloride (Nss) 500 mls @ 999 mls/hr IV .Q31M ONE Stop: 11/11/23 02:44 Last Infusion: 11/11/23 02:58 Dose: Infused Documented By: Admin: 11/11/23 02:27 Dose: 999 mls/hr Documented By: RICCI Metoprolol Tartrate (Metoprolol Tartrate 1 Mg/Ml Vial) 5 mg IV NOW STA Stop: 11/11/23 02:15 Last Admin: 11/11/23 02:27 Dose: 5 mg Documented By: RICCI Metoprolol Tartrate (Metoprolol Tartrate 1 Mg/Ml Vial) 5 mg IV NOW STA Stop: 11/11/23 02:49 Last Admin: 11/11/23 03:00 Dose: 5 mg Documented By: CINDY Metoprolol Tartrate (Metoprolol Tartrate 1 Mg/Ml Vial) 5 mg IV NOW STA Stop: 11/11/23 03:30 Last Admin: 11/11/23 03:45 Dose: 5 mg Documented By: CINDY Discharge Plan Visit Data Chief Complaint: Arrhythmia/Palpitations Stated Complaint: Afib RVR, Chest Pain ED Provider: Darek Bee Discharge Problem: Atrial fibrillation with RVR, Left-sided chest pain Patient Disposition: Admitted As Inpatient Discharge Instructions Interventions: ED Discharge Assessment Last Done: 11/11/23 06:25
[2023-11-11 02:45] LABS: BUN Creatinine Ratio 17.9 (10-20); Bilirubin Direct 0.1 mg/dl (0-0.2); Bilirubin,Total 0.7 mg/dl (0.2-1.0); Calcium 9.3 mg/dl (8.6-10.3); Creatinine Clr Calc Pharmacy 55.7 ml/min; Est GFR (Non-African American) 85.4 ml/min; Magnesium 1.8 mg/dl (1.7-2.4); Potassium 3.5 mmol/L (3.5-5.1)
[2023-11-11 02:51] LABS: Troponin I High Sensitivity 4.3 pg/ml (0-14)
[2023-11-11 02:55] LABS: Basophils # (auto) 0.03 K/uL (0.00-0.20); Basophils % (auto) 0.4 %; Eosinophils # (auto) 0.18 K/uL (0.00-0.50); Eosinophils % (auto) 2.5 %; Hematocrit (blood only) 34.9 % (37.0-47.0); Hemoglobin 12.1 g/dl (12.0-16.0); Immature Granulocytes # (auto) 0.02 K/uL (0.01-0.20); Immature Granulocytes % (auto) 0.3 %; Lymphocytes % (auto) 19.1 %; Mean Corpuscular Hemoglobin 30.6 pg (25.0-34.0); Mean Corpuscular Hgb Conc 34.7 g/dL (32.0-36.0); Mean Corpuscular Volume 88.1 fL (80.0-100.0); Mean Platelet Volume 9.7 fL (9.4-12.4); Monocytes # (auto) 0.56 K/uL (0.11-0.59); Monocytes % (auto) 7.6 %; Neutrophils # (auto) 5.14 K/uL (1.40-6.50); Neutrophils % (auto) 70.1 %; Platelet Count 245 K/uL (130-400); RDW Coefficient of Variation 12.7 % (11.5-14.5); Red Blood Count 3.96 M/uL (4.20-5.40); White Blood Count 7.33 K/ul (4.8-10.8)
[2023-11-11 03:22] LABS: Appearance Urine Clear (Clear); Bacteria Urine Automated Negative (Negative); Bilirubin Urine Negative (Negative); Blood Urine Trace (Negative); Cast Urine Automated 0 /lpf (0-5); Color Urine Yellow; Epithelial Cell Urine Auto 0-5 /lpf (0-5); Glucose Urine UA Negative (Negative); Ketones Urine Trace (Negative); Leukocyte Esterase Urine Negative (Negative); Nitrite Urine Negative (Negative); Protein Urine Negative (Negative); RBC Urine Automated 0-4 /hpf (0-4); Specific Gravity Urine 1.008 (1.000-1.030); Urobilinogen Urine Negative (Negative); WBC Urine Automated 0 /hpf (0-5)
[2023-11-11 03:31] LABS: Influenza A virus by PCR Negative (Neg); Influenza B virus by PCR Negative (Neg); RSV by PCR Negative (Neg); SARS CoV2 RNA(COVID-19) Ceph NEGATIVE (Negative)
--- NOTE | 2023-11-11 05:01 | History & Physical Report ---
Date of Service November 11, 2023 Assessment & Plan (1) Atrial fibrillation, rapid: Plan: 78-year-old female with past medical history significant for hypothyroidism, paroxysmal atrial fibrillation, chronic pain of multiple joints,, late onset Alzheimer's dementia with mood disturbance, depression, history of COVID, who lives alone at home and ambulates without support comes because she was feeling dizzy today and had some chest discomfort and found to be in rapid A-fib. Rapid A-fib Chest discomfort mostly from rapid A-fib Initial troponin is unremarkable Will follow serial enzymes and echocardiogram Received IV Lopressor x 3 in the ER Currently heart rates are in the low 100s Will continue home Toprol IV Lopressor as needed Continue home Xarelto Close monitor on telemetry floor Consult cardiology in a.m. Hypothyroidism On Synthyroid Will check TSH levels Alzheimer's dementia Continue home donezepil Monitor for delirium Depression On fluoxetine DVT prophylaxis On Xarelto Disposition Telemetry floor loan services professional to help with discharge planning as patient lives alone and patient is interested in going to halfway. Seems she is working on [employer] History of Present Illness Chief Complaint: Rapid A-fib, dizziness, chest pain Primary Care Provider: Corby Kang MD 78-year-old female with past medical history significant for hypothyroidism, paroxysmal atrial fibrillation, chronic pain of multiple joints,, late onset Alzheimer's dementia with mood disturbance, depression, history of COVID, who lives alone at home and ambulates without support comes because she was feeling dizzy today and had some chest discomfort and found to be in rapid A-fib. Patient states was feeling dizzy and she was lying down but her dizziness was not getting better and she felt to tell someone and seems called EMS and was brought in here . Patient seems currently not concerned about chest pain. But on repeat questioning she states she has some chest discomfort in the upper chest. Denies shortness of breath. Denies headache. No nausea. Has some abdominal discomfort. Has back pain. Normal bowel and bladder movements. Afebrile. Patient states she cooks her own food. She is not allowed to drive. States she lost 15 pounds. She is drinking protein drinks. She states it is very depressing to live alone and she is trying to look to going to [facility]. She states she is on waiting list. Her son lives about 4 hours away. States he comes and visits her. Patient could tell her name. Could tell her date of . Knows that she is in the hospital. Knows City name and county name. Could tell current month and year. 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 As mentioned above. Past surgical history. Colonoscopy. Foot surgery. Right total hip replacement. Right revision of total hip replacement. Left total hip replacement. Social history. Currently lives alone. No smoking. No alcohol use. No drug use. Family history. suicide, 1 son suicide, 1 son alive. Allergies Allergy/AdvReac Type Severity Reaction Status Date / Time hydroxychloroquine Allergy Severe rash, hives Verified 11/11/23 02:28 [From Plaquenil] adhesive Allergy Intermediate SWELLING Verified 11/11/23 02:28 AND REDNESS LOCALLY metoprolol Allergy Unknown ON [facility] MED Verified 11/11/23 02:28 LIST oxycodone Allergy Unknown ON [facility] MED Verified 11/11/23 02:28 LIST codeine AdvReac Intermediate NAUSEA AND Verified 11/11/23 02:28 VOMITING morphine AdvReac Intermediate NAUSEA AND Verified 11/11/23 02:28 VOMITING Home Medications Medication Instructions Recorded Confirmed Type cholecalciferol (vitamin D3) 25 1,000 unit PO BID 04/27/19 11/11/23 History mcg (1,000 unit) capsule (Vitamin D3) rivaroxaban 20 mg tablet (Xarelto) 20 mg PO DAILY #30 tabs 04/28/19 11/11/23 Rx latanoprost 0.005 % eye drops 1 drops ophthalmic (eye) QPM 10/09/19 11/11/23 History magnesium 250 mg tablet 250 mg PO DAILY 02/25/21 11/11/23 History diltiazem HCl 120 mg capsule,24 120 mg PO DAILY PRN as needed for 11/25/21 11/11/23 Rx hr,extended release exercise #30 caps ferrous sulfate 325 mg (65 mg 325 mg PO DAILY 06/09/22 11/11/23 History iron) tablet (Feosol) levothyroxine 25 mcg tablet 25 mcg PO DAILY 06/09/22 11/11/23 History vitamin B complex 1 tab PO DAILY 06/21/23 11/11/23 History fluoxetine 40 mg capsule 40 mg PO DAILY 06/22/23 11/11/23 History metoprolol succinate 25 mg 25 mg PO DAILY #90 tabs 10/19/23 12/22/23 Rx tablet,extended release 24 hr donepezil 10 mg tablet 10 mg PO DAILY 11/11/23 11/11/23 History Past Med/Surg History Medical History (Updated 11/11/23 @ 04:46 by Darek Bee MD) Osteoarthritis Menopause Breast cyst Mitral regurgitation A-fib Arthritis Surgical History History of tubal ligation S/P abdominal hysterectomy and left salpingo-oophorectomy History of tonsillectomy and adenoidectomy H/O hernia repair S/P dilatation and curettage History of appendectomy Hx of cataract surgery History of total hip replacement Family History Father Myocardial infarction Congestive heart failure Pure hypercholesterolemia Brother Exertional angina Mother Hypotension Social History Smoking Status: Unknown if ever smoked Do You Dip or Chew Tobacco: No; Hx Alcohol Use: No Hx Substance Use: No Preferred Language: German Communication Ability: Effective Back Tender Insulation Board Required: No Beliefs That Will Affect Care: None marital status: Current Living Situation: Alone Current Living Situation Comment: House current occupational status: employed Feels Safe at Home: Yes Safety Concerns: Feels Safe At This Time Assistive Devices: Glasses Review of Systems Review of Systems: All systems reviewed & are unremarkable except as noted in HPI & below Physical Exam Physical Exam: General- Not in distress Head- atraumatic Eyes- PERRL. ENT- oropharynx clear Neck- supple, no JVD. Lungs- clear to auscultation no wheezing or crackles. Heart- irregular rhythm;tachycardia, no murmur, no gallop. Abdomen- normal bowel sounds, soft, nontender, no distension. Extremities- no pretibial edema, no erythema seen. Neuro- alert, oriented x 3; PERRL, no facial palsy; no dysarthria; obeys simple commands, moves extremities. Skin- warm & dry Results & Data Results & Data Vital Signs (Past 12 Hours) Vital Signs Temp Pulse Pulse Resp BP BP Pulse Ox 11/11/23 04:00 101 H 136/81 11/11/23 04:00 92 H 16 136/81 97 11/11/23 03:45 98 H 146/101 H 11/11/23 03:15 97 H 144/87 H 11/11/23 03:00 84 146/102 H 11/11/23 02:39 116 H 22 129/88 95 11/11/23 02:27 112 H 142/98 H 11/11/23 01:59 36.5 C 115 H 20 155/99 H 100 11/11/23 01:54 118 H O2 Del Method 11/11/23 04:00 11/11/23 04:00 Room Air 11/11/23 03:45 11/11/23 03:15 11/11/23 03:00 11/11/23 02:39 Room Air 11/11/23 02:27 11/11/23 01:59 Room Air 11/11/23 01:54 Diagnostic Findings Laboratory Results WBC 7.33 K/ul (4.8-10.8) 11/11/23 02:00 RBC 3.96 M/uL (4.20-5.40) L 11/11/23 02:00 Hgb 12.1 g/dl (12.0-16.0) 11/11/23 02:00 Hct 34.9 % (37.0-47.0) L 11/11/23 02:00 MCV 88.1 fL (80.0-100.0) 11/11/23 02:00 MCH 30.6 pg (25.0-34.0) 11/11/23 02:00 MCHC 34.7 g/dL (32.0-36.0) 11/11/23 02:00 RDW Std Deviation 41.0 fL (36.4-46.3) 11/11/23 02:00 RDW Coeff of Amena 12.7 % (11.5-14.5) 11/11/23 02:00 Plt Count 245 K/uL (130-400) 11/11/23 02:00 MPV 9.7 fL (9.4-12.4) 11/11/23 02:00 Immature Gran % (Auto) 0.3 % 11/11/23 02:00 Neut % (Auto) 70.1 % 11/11/23 02:00 Lymph % (Auto) 19.1 % 11/11/23 02:00 Antelope % (Auto) 7.6 % 11/11/23 02:00 Eos % (Auto) 2.5 % 11/11/23 02:00 Baso % (Auto) 0.4 % 11/11/23 02:00 Neut # (Auto) 5.14 K/uL (1.40-6.50) 11/11/23 02:00 Lymph # (Auto) 1.40 K/uL (1.20-3.40) 11/11/23 02:00 Antelope # (Auto) 0.56 K/uL (0.11-0.59) 11/11/23 02:00 Eos # (Auto) 0.18 K/uL (0.00-0.50) 11/11/23 02:00 Baso # (Auto) 0.03 K/uL (0.00-0.20) 11/11/23 02:00 Immature Gran # (Auto) 0.02 K/uL (0.01-0.20) 11/11/23 02:00 Sodium 135 mmol/L (136-145) L 11/11/23 02:00 Potassium 3.5 mmol/L (3.5-5.1) 11/11/23 02:00 Chloride 101 mmol/L (98-107) 11/11/23 02:00 Carbon Dioxide 24 mmol/L (21-32) 11/11/23 02:00 Anion Gap 10 (3-11) 11/11/23 02:00 BUN 12 mg/dl (6-23) 11/11/23 02:00 Creatinine 0.67 mg/dl (0.6-1.2) 11/11/23 02:00 Est Cr Clr Drug Dosing 55.7 ml/min 11/11/23 02:00 Est GFR ( Amer) 99.0 ml/min 11/11/23 02:00 Est GFR (Non-Af Amer) 85.4 ml/min 11/11/23 02:00 BUN/Creatinine Ratio 17.9 (10-20) 11/11/23 02:00 Glucose 118 mg/dl (70-99(Fasting)) H 11/11/23 02:00 Calcium 9.3 mg/dl (8.6-10.3) 11/11/23 02:00 Magnesium 1.8 mg/dl (1.7-2.4) 11/11/23 02:00 Total Bilirubin 0.7 mg/dl (0.2-1.0) 11/11/23 02:00 Direct Bilirubin 0.1 mg/dl (0-0.2) 11/11/23 02:00 AST 26 U/L (13-39) 11/11/23 02:00 ALT 16 U/L (7-52) 11/11/23 02:00 Alkaline Phosphatase 66 U/L (34-104) 11/11/23 02:00 Troponin I High Sens 4.3 pg/ml (0-14) 11/11/23 02:00 Total Protein 7.0 gm/dl (6.0-8.3) 11/11/23 02:00 Albumin 4.0 gm/dl (3.4-5.0) 11/11/23 02:00 Lipase 46 U/L (11-82) 11/11/23 02:00 Urine Color Yellow 11/11/23 03:03 Urine Appearance Clear (Clear) 11/11/23 03:03 Urine pH 8.0 (4.5-7.5) H 11/11/23 03:03 Ur Specific Burney 1.008 (1.000-1.030) 11/11/23 03:03 Urine Protein Negative (Negative) 11/11/23 03:03 Urine Glucose (UA) Negative (Negative) 11/11/23 03:03 Urine Ketones Trace (Negative) H 11/11/23 03:03 Urine Blood Trace (Negative) H 11/11/23 03:03 Urine Nitrite Negative (Negative) 11/11/23 03:03 Urine Bilirubin Negative (Negative) 11/11/23 03:03 Urine Urobilinogen Negative (Negative) 11/11/23 03:03 Ur Leukocyte Esterase Negative (Negative) 11/11/23 03:03 Urine WBC (Auto) 0 /hpf (0-5) 11/11/23 03:03 Urine RBC (Auto) 0-4 /hpf (0-4) 11/11/23 03:03 U Hyaline Cast (Auto) 0 /lpf (0-5) 11/11/23 03:03 U Epithel Cells (Auto) 0-5 /lpf (0-5) 11/11/23 03:03 Urine Bacteria (Auto) Negative (Negative) 11/11/23 03:03 SARS-CoV-2 (PCR) NEGATIVE (Negative) 11/11/23 02:37 Influenza Type A (PCR) Negative (Neg) 11/11/23 02:37 Influenza Type B (PCR) Negative (Neg) 11/11/23 02:37 RSV (RT-PCR) Negative (Neg) 11/11/23 02:37 ECG Additional Comments: ECG. Atrial fibrillation with rapid ventricular response rate of 109. ST depression in inferior and anterolateral leads Code Status & VTE Plan VTE Prophylaxis Plan VTE Prophylaxis will be ordered: Yes
--- OUTSIDE RECORDS SUMMARY | 2023-11-11 06:05 | External Medical Summary | Summary of Care ---
Author Name Unknown Organization [facility] Address [address] [place] [address] Phone [phone] Care Team Providers Care Enterprise Project Manager Name Role Phone Corby Kang MD Primary Care Provider + Reason for Visit * Reason Onset Date Comments FYI 11/02/2023 Encounter Details Date Type Department Care Team (Late st Contact Info) Description 11/02/2023 Telephone Family Practice [facility] [address] [place] [phone] Corby Kang MD [address] [place] [id number] FY Allergies Active Allergy Reactions Criticality Noted Date Comments Codeine 06/09/2022 Other reaction(s): NAUSEA AND VOMITING Hydroxychloroquine Rash High 12/06/2019 Metoprolol 04/30/2021 Morphine 06/09/2022 Other reaction(s): NAUSEA AND VOMITING Oxycodone 06/21/2023 Other reaction(s): Unknown Transdermal Base Edema Other 05/20/2008 Allergic to transdermal estrogen patch documented as of this encounter (statuses as of 11/02/2023) Medications Medication Sig Dispensed Refills Start Date End Date Status AMOXICILLIN 500 MG PO CAPS Take by mouth. 0 Active VITAMIN D 1000 UNITS PO TABS twice daily 0 Active B Complex-C CAPS Take by mouth. 0 Acti ve Latanoprost 0.005 % Ophthalmic Solution (Xalatan) Start: 06/26/20 13:27:00 EDT, 1 drop, right eye, Daily 0 06/26/2020 Active Magnesium 250 MG Oral Tablet Take 1 Tablet by mouth in the morning. 0 Active Metoprolol Succinate ER 25 MG Oral Tablet Extended Release 24 Hour (toPROL XL) Take 1 Tablet by mouth in the morning. 0 Active Tretinoin 0.05 % External Cream (Retin-A)Indications :Photoaging of skin APPLY A THIN LAYER TO WHOLE FACE NIGHTLY, CAN MIX WITH MOISTURIZER IF SKIN IS DRY 45 g 2 08/06/2022 Active dilTIAZem HCl ER Coated Beads 120 MG Oral Capsule Extended Release 24 Hour (Cardizem CD) Take 1 Capsule by mouth in the morning. Takes only before a "hike". 1 Capsule 0 11/02/2022 Active Ferrous Sulfate 325 (65 Fe) MG Oral Tablet Take 1 Tablet by mouth daily with breakfast. 0 Active Levothyroxine Sodium 25 MCG Oral Tablet (Levoxyl)Indications :Acquired hypothyroidism Take 1 Tablet by mouth in the morning. 90 Tablet 1 07/28/2023 Active Rivaroxaban 20 MG Oral Tablet (Xarelto)Indications :Paroxysmal atrial fibrillation (HCC) Take 1 Tablet by mouth in the morning. 90 Tablet 1 07/28/2023 Active Donepezil HCl 10 MG Oral Tablet (Aricept) Take 10 mg with largest meal daily after finishing 5 mg tablets. 90 Tablet 3 09/02/2023 Active FLUoxetine HCl 40 MG Oral Capsule (PROzac)Indications: Moderate episode of recurrent major depressive disorder (HCC) Take 1 Capsule by mouth in the morning. 90 Capsule 3 11/01/2023 Active documented as of this encounter (statuses as of 11/02/2023) Active Problems Problem Noted Date Diagnosed Date Late onset Alzheimer's dementia with mood distur bance 10/27/2023 History of 2019 novel coronavirus disease (COVID -19) 11/02/2022 Overview: Suspected. Lost smell. Fatigue. Dementia 11/02/2022 Overview: 02/10 son is POA. neuropsych testing ordered. Well adult exam 11/02/2022 Overview: Son Kristofer Saleem w/medical POA (he is to fax) 03/12 colon [facility] +Tubular adenoma. 05/09 Echo normal EF Mod TR mild LAE.. Type 2 Workman dys. 2009 [facility] stress echo WNL 2009 colon pseudopolyp. Chronic pain of multiple joints 11/02/2022 Overview: At one pt, RA considered, MTX used, but [facility] thought was erosive. Postmenopausal atrophic vaginitis 05/03/2022 Paroxysmal atrial fibrillation 05/03/2022 Overview: Noted on preop exam. 05/09.Spontaneously cardioverted. Acquired hypothyroidism 05/03/2022 Moderate episode of recurrent major depressive d isorder 05/03/2022 documented as of this encounter (statuses as of 11/02/2023) Resolved Problems Problem Noted Date Diagnosed Date Resolved Date Encounter for examination fo r normal comparison and control in clinical research program 05/01/2018 06/23/2020 Overview: DO NOT DELETE [facility] DETECT Study: Project # [id number], Career Based Intervention Coordinator: Junaid Sharp, PhD. SUMMARY: Goal: Establish test characteristics (sensitivity, specificity, PPV, NPV) of a circulating tumor DNA (ctDNA)-based test for cancer. Hypothesis: Circulating tumor DNA (ctDNA) and elevated protein biomarkers (together, the marker panel) can be detected in asymptomatic individuals with early cancer. Specific Aim 1: Determine the prevalence of a positive marker panel test in a prospective clinical cohort of 10,000 asymptomatic women ages 65 to 75 years. Specific Aim 2: Determine the sensitivity, specificity, positive predictive value (PPV) and negative predictive value (NPV) of a marker panel test to identify histologically proven cancers that develop within 5-years of the marker panel evaluation. CONTACTS: During normal business hours, contact study staff at ; after hours Career Based Intervention Coordinator via the [facility] rotary machine operator . Please contact study team before resolving/deleting from patients problem list. Study phone number: [phone]. Diagnosis changed due to Research Module. Go to Snapshot for study details. Encounter for examination fo r normal comparison and control in clinical research program 05/01/2018 07/22/2022 Overview: DO NOT DELETE - [facility] Study: Project # [id number], Career Based Intervention Coordinator: Tello Palacios, MS, MPH. SUMMARY: Goal: Establish test characteristics (sensitivity, specificity, PPV, NPV) of a circulating tumor DNA (ctDNA)-based test for cancer. - Hypothesis: Circulating tumor DNA (ctDNA) and elevated protein biomarkers (together, the marker panel) can be detected in asymptomatic individuals with early cancer. - Specific Aim 1: Determine the prevalence of a positive marker panel test in a prospective clinical cohort of 10,000 asymptomatic women ages 65 to 75 years. - Specific Aim 2: Determine the sensitivity, specificity, positive predictive value (PPV) and negative predictive value (NPV) of a marker panel test to identify histologically proven cancers that develop within 5-years of the marker panel evaluation. - CONTACTS: During normal business hours, contact study staff at ; after hours Career Based Intervention Coordinator via the [facility] hospital rotary machine operator . - Please contact study team before resolving/deleting from patients problem list. Study phone number: [phone]. Diagnosis changed due to Research Module. Go to Snapshot for study details. documented as of this encounter (statuses as of 11/02/2023) Immunizations Name Administration Dates Next Due COVID-19 mRNA, LNP-s, No Pre serve, 2-Dose Series ([employer]) 02/18/2022,08/18/2021,02/03/2021,01/13 Covid-19, Mrna, Lnp-s, Pf, B ivalent, 30 Mcg, IM, 12 yrs and above ([employer]) 08/21/2022 HPV Vaccine, Bivalent 05/23/2012,12/23/2011,02/2012 Hepatitis A Vaccine 02/10/2015,08/13/2014 Hepatitis B Vaccine 06/13/2012,01/10/2012,2011 Pneumococcal Conjugate Vacc, 13 Valent (Prevnar) 10/09/2014 Pneumococcal Polysaccharide PPV23 (Pneumovax) 09/03/2022,08/14/2021,03/02/2010 Seasonal Influenza, Quadriva lent Hd (Fluzone Hd) 10/27/2023 Seasonal Influenza, Quadriva lent Hd, 65+ Yrs 07/26/2022 Seasonal Influenza, Split, I IV3, With Preserve, Inj 07/30/2021,07/06/2020 Seasonal Influenza, Trivalen t, High Dose, No Preserve, IM 08/21/2019 TDAP (age 11 and older)(Adacel) 11/03/2007 Varicella Zoster Vaccine (Adult) 11/26/2008 Zoster Vaccine Recombinant (Shingrix) 02/05/2019 ,02/01/2019,09/27/2018 documented as of this encounter Social History Tobacco Use Types Packs/Day Years Used Date Smoking Tobacco: Never Smokeless Tobacco: Never Alcohol Use Standard Drinks/Week Comments No 0 (1 standard drink = 0.6 oz pur e alcohol) PHQ-2 Answer Date Recorded PHQ Adult Total Score 4 06/07/2022 Hunger Vital Sign Answer Date Recorded Within the past 12 months, y ou worried that your food would run out before you got the money to buy more. Never true 03/11/20 23 Within the past 12 months, t he food you bought just didn't last and you didn't have money to get more. Never true 03/11/2023 Sex and Gender Information Value Date Recorded Sex Assigned at Female 06/07/2022 1:51 PM EDT Gender Identity Female 06/07/2022 1:51 PM EDT Sexual Orientation Straight 06/07/2022 1: 51 PM EDT Job Start Date Occupation Industry Not on file Not on file Not on file documented as of this encounter Miscellaneous Notes * Telephone Encounter - Kasey Ruiz LPN - 11/02/2023 1:23 PM EST PCP aware. * Telephone Encounter - Marcie Carrillo OSA - 11/02/2023 10:09 AM EST Sharri with [facility] Home [facility] called and said they are able to accept the referral for Home Health nursing. documented in this encounter Plan of Treatment Upcoming Encounters Date Type Department Care Team (Late st Contact Info) Description 02/10/2024 3:40 PM EDT Office Visit Family Practice [facility] [address] [place] [address] Corby Kang MD [address] [place] [address] 06/22/2024 2:00 PM EDT Office Visit Neurology [facility] [place] [address] [place] [place] [address] Kristel Guzman, DO [address] [place] [facility] [place] [address] Health Maintenance Due Date Last Done Comments DTaP,Tdap,and Td Vaccines (2 - Td or Tdap) 11/03/2017 11/03/2007 Depression Screening 06/07/2023 06/07/2022 COVID-19 Vaccine ( season) 2023 08/21/2022, 02/18/2022, 08/18/2021, Additional history exists DXA Scan 03/01/2024 03/01/2022, 02/19, 09/03/2019, Additional history exists TSH 10/27/2024 10/27/2023, 10/21, 01/08/2022, Additional history exists COLONOSCOPY-EVERY 5 YRS AGES 18-100 03/05/2027 03/05/2022, 07/22/2010 GARDASIL-HPV IMMUNIZATION SERIES Aged Out 05/23/2012, 12/23/2011, 11/24/2011 No longer eligible based on patient's age to complete this topic Hepatitis B Completed 06/13/2012, 12/23, 12/06/2011 Zoster Vaccines Completed 02/05/2019, 01/19, 09/27/2018, Additional history exists Colonoscopy Discontinued 03/05/2022, 07/22/2010 Colorectal Cancer Screening Discontinued Pneumococcal Vaccine: 65+ Years Completed 09/03/2022, 08/14/2021, 10/09/2014, Additional history exists Influenza Vaccine (FLU shot) Completed 10/27/2023, 07/26/2022, 07/30/2021, Additional history exists Cologuard Discontinued Fecal Occult Blood Test Discontinued MENINGOCOCCAL (MENACTRA/MENVEO) Aged Out No longer eligible based on patient's age to complete this topic Sigmoidoscopy Discontinued documented as of this encounter Medical Devices Not on filedocumented as of this encounter Advance Directives Documents on File Type Date Recorded Patient Pipe Fitter Helper Expl anation Power of Fulfillment Associate 04/22/2020 Kristofer Saleem (dtr-in-law) POWER OF AUTOMOTIVE DESIGN LAYOUT DRAFTER & ADVANCE DIRECTIVE Healthcare Agents on File Name Relationship Healthcare Agent Relationship Communication Kristofer Saleem Adult Child Health Care Agen t (per Health Care Power of Fulfillment Associate document) [email or web address] Marilynn Saleem (dtr-in-law) Other - (no specific identity) First Alternate Health Care Agent (per Health Care Power of Fulfillment Associate document) [email or web address] Care Teams Enterprise Project Manager Relationship Specialty Start Date End Date Corby Kang MD [address] [place] [address] PCP - General Family Medicine 05/20/22 documented as of this encounter
--- OUTSIDE RECORDS SUMMARY | 2023-11-11 06:05 | External Medical Summary | Summary of Care ---
Author Name Unknown Organization [facility] Address [address] [place] [address] Phone [phone] Care Team Providers Care Dredge Engineer Name Role Phone Corby Kang MD Primary Care Provider + Reason for Visit * Reason Onset Date Comments transfer of records 11/08/2023 Encounter Details Date Type Department Care Team (Late st Contact Info) Description 11/08/2023 Telephone Family Practice [facility] [address] [place] [address] Corby Kang MD [address] [place] [phone] transfer of records Allergies Active Allergy Reactions Criticality Noted Date Comments Codeine 06/09/2022 Other reaction(s): NAUSEA AND VOMITING Hydroxychloroquine Rash High 12/06/2019 Metoprolol 04/30/2021 Morphine 06/09/2022 Other reaction(s): NAUSEA AND VOMITING Oxycodone 06/21/2023 Other reaction(s): Unknown Transdermal Base Edema Other 05/20/2008 Allergic to transdermal estrogen patch documented as of this encounter (statuses as of 11/08/2023) Medications Medication Sig Dispensed Refills Start Date [...] as of this encounter (statuses as of 11/08/2023) Active Problems Problem Noted Date Diagnosed Date Late onset Alzheimer's dementia with mood distur bance 10/27/2023 History of 2019 novel coronavirus disease (COVID -19) 11/02/2022 Overview: Suspected. Lost smell. Fatigue. Dementia 11/02/2022 Overview: 02/10 son is POA. neuropsych testing ordered. Well adult exam 11/02/2022 Overview: Son Kristofer Saleme w/medical POA (he is to fax) 03/12 colon [facility] +Tubular adenoma. 05/09 Echo normal EF Mod TR mild LAE.. Type 2 Workman dys. 2009 [facility] stress echo WNL 2009 colon pseudopolyp. Chronic pain of multiple joints 11/02/2022 Overview: At one pt, RA considered, MTX used, but [facility] thought was erosive. Postmenopausal atrophic vaginitis 05/03/2022 Paroxysmal atrial fibrillation 05/03/2022 Overview: Noted on preop exam. 05/09.Spontaneously cardioverted. Acquired hypothyroidism 05/03/2022 Moderate episode of recurrent major depressive d isorder 05/03/2022 documented as of this encounter (statuses as of 11/08/2023) Resolved Problems Problem Noted Date Diagnosed Date Resolved Date Encounter for examination fo r normal comparison and control in clinical research program 05/01/2018 06/23/2020 Overview: DO NOT DELETE [facility] DETECT Study: Project # [id number], Field Care Manager: Junaid Sharp, PhD. SUMMARY: Goal: Establish test [...] contact study staff at ; after hours Field Care Manager via the [facility] tray drier operator . Please contact study team before resolving/deleting from patients problem list. Study phone number: [phone]. Diagnosis changed due to Research Module. Go to Snapshot for study details. Encounter for examination fo r normal comparison and control in clinical research program 05/01/2018 07/22/2022 Overview: DO NOT DELETE - [facility] DETECT Study: Project # [id number], Field Care Manager: Tello Palacios, MS, MPH. SUMMARY: Goal: Establish [...] contact study staff at ; after hours Field Care Manager via the [facility] tray drier operator . - Please contact study team before resolving/deleting from patients problem list. Study phone number: [phone]. Diagnosis changed due to Research Module. Go to Snapshot for study details. documented as of this encounter (statuses as of 11/08/2023) Immunizations Name Administration Dates Next Due COVID-19 mRNA, LNP-s, No Pre serve, 2-Dose Series ([employer]) 02/18/2022,08/18/2021,02/03/2021,01/13 Covid-19, Mrna, Lnp-s, Pf, B ivalent, 30 Mcg, IM, 12 yrs and above ([employer]) 08/21/2022 HPV Vaccine, Bivalent 05/23/2012,12/23/2011,02/2012 Hepatitis A [...] Telephone Encounter - Kasey Ruiz LPN - 11/08/2023 1:53 PM EST Received fax from [employer] [facility]. Fax requests medical records for the last 3 months. Pt is looking for placement potentially there. Information printed and faxed per request. documented in this encounter Plan of Treatment Upcoming Encounters Date Type Department Care Team (Late st Contact Info) Description 02/10/2024 3:40 PM EDT Office Visit Family [address] [place] [address] Corby Maurice MD [address] [place] [address] 06/22/2024 2:00 PM EDT Office Visit Neurology [facility] [place] [address] [facility] [address] Jane Guzmanstaciateresa Carlyn, DO [address] [place] [address] Health Maintenance Due Date Last Done Comments DTaP,Tdap,and Td Vaccines (2 - Td or Tdap) 11/03/2017 11/03/2007 Depression Screening 06/07/2023 06/07/2022 COVID-19 Vaccine (2022- season) 2023 08/21/2022, 02/18/2022, 08/18/2021, Additional history [...] Documents on File Type Date Recorded Patient Business Operations Analyst Expl anation Power of Putty Mixer 04/22/2020 Kristofer Saleem (dtr-in-law) POWER OF RECORD CUTTER & ADVANCE DIRECTIVE Healthcare Agents on File Name Relationship Healthcare Agent Relationship Communication Kristofer Saleem Adult Child Health Care Agen t (per Health Care Power of Putty Mixer document) [email or web address] Marilynn Saleem (dtr-in-law) Other - (no specific identity) First Alternate Health Care Agent (per Health Care Power of Putty Mixer document) [email or web address] Care Teams Dredge Engineer Relationship Specialty Start Date End Date Corby Kang MD [address] [place] [address] PCP - General Family Medicine 05/20/22 documented as of this encounter
--- OUTSIDE RECORDS SUMMARY | 2023-11-11 06:05 | External Medical Summary | Summary of Care ---
Author Name Unknown Organization [facility] Address [address] [place] [address] Phone [phone] Care Team Providers Care Drilling Superintendent Name Role Phone Corby Kang MD Primary Care Provider + Reason for Visit * Reason Onset Date Comments Advice 11/10/2023 Encounter Details Date Type Department Care Team (Late st Contact Info) Description 11/10/2023 Telephone Family Practice [facility] [address] [place] [address] Corby Kang MD [address] [place] [address] Advice Allergies Active Allergy Reactions Criticality Noted Date Comments Codeine 06/09/2022 Other reaction(s): NAUSEA AND VOMITING Hydroxychloroquine Rash High 12/06/2019 Metoprolol 04/30/2021 Morphine 06/09/2022 Other reaction(s): NAUSEA AND VOMITING Oxycodone 06/21/2023 Other reaction(s): Unknown Transdermal Base Edema Other 05/20/2008 Allergic to transdermal estrogen patch documented as of this encounter (statuses as of 11/10/2023) Medications Medication Sig Dispensed Refills Start Date [...] as of this encounter (statuses as of 11/10/2023) Active Problems Problem Noted Date Diagnosed Date [...] mild LAE.. Type 2 Workman dys. 2009 [facility] stress echo WNL 2009 colon pseudopolyp. Chronic pain of multiple joints 11/02/2022 Overview: At one pt, RA considered, MTX used, but [facility] thought was erosive. Postmenopausal atrophic vaginitis 05/03/2022 Paroxysmal atrial fibrillation 05/03/2022 Overview: Noted on preop exam. 05/09.Spontaneously cardioverted. Acquired hypothyroidism 05/03/2022 Moderate episode of recurrent major depressive d isorder 05/03/2022 documented as of this encounter (statuses as of 11/10/2023) Resolved Problems Problem Noted Date Diagnosed Date Resolved Date Encounter for examination fo r normal comparison and control in clinical research program 05/01/2018 06/23/2020 Overview: DO NOT DELETE [facility] DETECT Study: Project # [id number], Maintenance Painter Apprentice: Junaid Sharp, PhD. SUMMARY: Goal: Establish test [...] contact study staff at ; after hours Maintenance Painter Apprentice via the [facility] lockstitch tunnel elastic operator . Please contact study team before resolving/deleting from patients problem list. Study phone number: [phone]. Diagnosis changed due to Research Module. Go to Snapshot for study details. Encounter for examination fo r normal comparison and control in clinical research program 05/01/2018 07/22/2022 Overview: DO NOT DELETE - [facility] DETECT Study: Project # [id number], Maintenance Painter Apprentice: Tello Palacios, MS, MPH. SUMMARY: Goal: Establish [...] contact study staff at ; after hours Maintenance Painter Apprentice via the [facility] lockstitch tunnel elastic operator . - Please contact study team before resolving/deleting from patients problem list. Study phone number: [phone]. Diagnosis changed due to Research Module. Go to Snapshot for study details. documented as of this encounter (statuses as of 11/10/2023) Immunizations Name Administration Dates Next Due COVID-19 mRNA, LNP-s, No Pre serve, 2-Dose Series ([employer]) 02/18/2022,08/18/2021,02/03/2021,01/13 Covid-19, Mrna, Lnp-s, Pf, B ivalent, 30 Mcg, IM, 12 yrs and above ([employer]) 08/21/2022 HPV Vaccine, Bivalent 05/23/2012,12/23/2011,02/2012 Hepatitis A [...] Telephone Encounter - Kasey Ruiz LPN - 11/10/2023 9:05 AM EST Will watch for fax * Telephone Encounter - Bailey Leary OSA - 11/10/2023 8:30 AM EST Rodger, Speech Therapist from [facility] is calling to inform the provider that she just evaluated the pt for cognitive function and she would to to follow up with the pt for strategy to assist with memory. She says she will send the fax over for the doctor to sign. Best contact for Rodger: [phone] documented in this encounter Plan of Treatment Upcoming Encounters Date Type Department Care Team (Late st Contact Info) Description 02/10/2024 3:40 PM EDT Office Visit Family Practice [facility] [address] [place] [address] Corby Kang MD [address] [place] [address] 06/22/2024 2:00 PM EDT Office Visit Neurology [facility] [address] [place] [address] Kristel Guzman, DO [address] [facility] [place] [address] Health Maintenance Due Date Last Done Comments [...] Documents on File Type Date Recorded Patient Shale Planer Operator Expl anation Power of Briquette Machine Operator 04/22/2020 Kristofer Saleem (dtr-in-law) POWER OF INVESTIGATOR FRAUD & ADVANCE DIRECTIVE Healthcare Agents on File Name Relationship Healthcare Agent Relationship Communication Kristofer Saleem Adult Child Health Care Agen t (per Health Care Power of Briquette Machine Operator document) [email or web address] Marilynn Saleem (dtr-in-law) Other - (no specific identity) First Alternate Health Care Agent (per Health Care Power of Briquette Machine Operator document) [email or web address] Care Teams Drilling Superintendent Relationship Specialty Start Date End Date Corby Kang MD [address] [place] [address] PCP - General Family Medicine 05/20/22 documented as of this encounter
--- OUTSIDE RECORDS SUMMARY | 2023-11-11 06:05 | External Medical Summary | Summary of Care ---
Author Name Unknown Organization [facility] Address [address] [place] [address] Phone [phone] Care Team Providers Care Photographer'S Assistant Name Role Phone Corby Kang MD Primary Care Provider + Reason for Visit * Reason Onset Date Comments Order Request 11/04/2023 Encounter Details Date Type Department Care Team (Late st Contact Info) Description 11/04/2023 Telephone Family Practice [facility] [address] [place] [address] Corby Kang MD [address] [place] [id number] Order Request Allergies Active Allergy Reactions Criticality Noted Date Comments Codeine 06/09/2022 Other reaction(s): NAUSEA AND VOMITING Hydroxychloroquine Rash High 12/06/2019 Metoprolol 04/30/2021 Morphine 06/09/2022 Other reaction(s): NAUSEA AND VOMITING Oxycodone 06/21/2023 Other reaction(s): Unknown Transdermal Base Edema Other 05/20/2008 Allergic to transdermal estrogen patch documented as of this encounter (statuses as of 11/04/2023) Medications Medication Sig Dispensed Refills Start Date [...] as of this encounter (statuses as of 11/04/2023) Active Problems Problem Noted Date Diagnosed Date [...] mild LAE.. Type 2 Workman dys. 2009 [facility] stress echo WNL 2009 colon pseudopolyp. Chronic pain of multiple joints 11/02/2022 Overview: At one pt, RA considered, MTX used, but [facility] thought was erosive. Postmenopausal atrophic vaginitis 05/03/2022 Paroxysmal atrial fibrillation 05/03/2022 Overview: Noted on preop exam. 05/09.Spontaneously cardioverted. Acquired hypothyroidism 05/03/2022 Moderate episode of recurrent major depressive d isorder 05/03/2022 documented as of this encounter (statuses as of 11/04/2023) Resolved Problems Problem Noted Date Diagnosed Date Resolved Date Encounter for examination fo r normal comparison and control in clinical research program 05/01/2018 06/23/2020 Overview: DO NOT DELETE [facility] DETECT Study: Project # [id number], Cathode Maker: Junaid Sharp, PhD. SUMMARY: Goal: Establish test [...] contact study staff at ; after hours Cathode Maker via the [facility] ballast cleaning machine operator . Please contact study team before resolving/deleting from patients problem list. Study phone number: [phone]. Diagnosis changed due to Research Module. Go to Snapshot for study details. Encounter for examination fo r normal comparison and control in clinical research program 05/01/2018 07/22/2022 Overview: DO NOT DELETE - [facility] Study: Project # [id number], Cathode Maker: Tello Palacios, MS, MPH. SUMMARY: Goal: Establish [...] contact study staff at ; after hours Cathode Maker via the [facility] hospital ballast cleaning machine operator . - Please contact study team before resolving/deleting from patients problem list. Study phone number: [phone]. Diagnosis changed due to Research Module. Go to Snapshot for study details. documented as of this encounter (statuses as of 11/04/2023) Immunizations Name Administration Dates Next Due COVID-19 mRNA, LNP-s, No Pre serve, 2-Dose Series (Bancha) 02/18/2022,08/18/2021,02/03/2021,01/13 Covid-19, Mrna, Lnp-s, Pf, B ivalent, 30 Mcg, IM, 12 yrs and above (Bancha) 08/21/2022 HPV Vaccine, Bivalent 05/23/2012,12/23/2011,02/2012 Hepatitis A [...] encounter Miscellaneous Notes * Telephone Encounter - Maya Augustine LPN - 11/04/2023 3:33 PM EST Called [facility] [place],.. this was from speech therapist. This is just an FYI. Nothing needed at this time. * Telephone Encounter - Tigre Negron OSA - 11/04/2023 3:04 PM EST [facility] home health is calling in to let the doctor know about Patients eval upcoming eval on Tuesday. The order may be out of the 90 day order window but she wanted to make sure it was still valid for Tuesday. documented in this encounter Plan of Treatment Upcoming Encounters Date Type Department Care Team (Late st Contact Info) Description 02/10/2024 3:40 PM EDT Office Visit Family Practice [facility] [address] [place] [address] Corby Kang MD [address] [place] [address] 06/22/2024 2:00 PM EDT Office Visit Neurology [facility] [address] [place] [address] Kristel Guzman, DO [address] [place] [address] Health Maintenance Due Date Last Done Comments [...] Documents on File Type Date Recorded Patient Strategic Marketing Leader Expl anation Power of Disability Hearing Officer 04/22/2020 Kristofer Saleem (dtr-in-law) POWER OF BULK PICKER & ADVANCE DIRECTIVE Healthcare Agents on File Name Relationship Healthcare Agent Relationship Communication Kristofer Saleem Adult Child Health Care Agen t (per Health Care Power of Disability Hearing Officer document) [email or web address] Marilynn Saleem (dtr-in-law) Other - (no specific identity) First Alternate Health Care Agent (per Health Care Power of Disability Hearing Officer document) [email or web address] Care Teams Photographer'S Assistant Relationship Specialty Start Date End Date Corby Kang MD [address] [place] [address] PCP - General Family Medicine 05/20/22 documented as of this encounter
--- OUTSIDE RECORDS SUMMARY | 2023-11-11 06:06 | External Medical Summary ---
Author Name Unknown Address Unknown Organization [id number]:LABORATORY [facility] - [address] [facility] [address] Laboratory Report Ordering Provider Test Date Status JOHANNE MATTHEW 10/27/2023 10:46:57 Final Observation Date Value Abnormality Reference (Units ) Status Ferritin 10/27/2023 10:46:57 438 Above high normal 13 -150 (ng/mL) Final Postmenopausal women have hi gher ferritin levels than pre-menopausal women. The above reference interval is based on pre-menopausal women. Performing Location [facility] [address] [facility] [address]
--- OUTSIDE RECORDS SUMMARY | 2023-11-11 06:06 | External Medical Summary | Summary of Care ---
Author Name Unknown Organization [facility] Address [address] [place] [address] Phone [phone] Care Team Providers Care Wind Turbine Machinist Name Role Phone Corby Kang MD Primary Care Provider + Reason for Visit * Reason Comments Outpatient Testing Encounter Details Date Type Department Care Team (Late st Contact Info) Description 10/27/2023 10:40 AM EST Laboratory Laboratory, [facility] [address] [place] [address] [facility] [address] [place] [address] Anemia, unspecified type; Loss of weight; Moderate late onset Alzheimer's dementia without behavioral disturbance, psychotic disturbance, mood disturbance, or anxiety (HCC) Allergies Active Allergy Reactions Criticality Noted Date Comments Codeine 06/09/2022 Other reaction(s): NAUSEA AND VOMITING Hydroxychloroquine Rash High 12/06/2019 Metoprolol 04/30/2021 Morphine 06/09/2022 Other reaction(s): NAUSEA AND VOMITING Oxycodone 06/21/2023 Other reaction(s): Unknown Transdermal Base Edema Other 05/20/2008 Allergic to transdermal estrogen patch documented as of this encounter (statuses as of 10/27/2023) Medications Medication Sig Dispensed Refills Start Date [...] by mouth daily with breakfast. 0 Active FLUoxetine HCl 40 MG Oral Capsule (PROzac)Indications: Moderate episode of recurrent major depressive disorder (HCC) Take 1 Capsule by mouth in the morning. 90 Capsule 1 07/28/2023 Active Levothyroxine Sodium 25 MCG Oral Tablet [...] mg tablets. 90 Tablet 3 09/02/2023 Active documented as of this encounter (statuses as of 10/27/2023) Active Problems Problem Noted Date Diagnosed Date [...] mild LAE.. Type 2 Workman dys. 2009 [facility] stress echo WNL 2009 colon pseudopolyp. Chronic pain of multiple joints 11/02/2022 Overview: At one pt, RA considered, MTX used, but [facility] thought was erosive. Postmenopausal atrophic vaginitis 05/03/2022 Paroxysmal atrial fibrillation 05/03/2022 Overview: Noted on preop exam. 05/09.Spontaneously cardioverted. Acquired hypothyroidism 05/03/2022 Moderate episode of recurrent major depressive d isorder 05/03/2022 documented as of this encounter (statuses as of 10/27/2023) Resolved Problems Problem Noted Date Diagnosed Date Resolved Date Encounter for examination fo r normal comparison and control in clinical research program 05/01/2018 06/23/2020 Overview: DO NOT DELETE [facility] DETECT Study: Project # [id number], Automobile Rental Clerk: Junaid Sharp, PhD. SUMMARY: Goal: Establish test [...] contact study staff at ; after hours Automobile Rental Clerk via the [facility] hospital wastewater operator . Please contact study team before resolving/deleting from patients problem list. Study phone number: [phone]. Diagnosis changed due to Research Module. Go to Snapshot for study details. Encounter for examination fo r normal comparison and control in clinical research program 05/01/2018 07/22/2022 Overview: DO NOT DELETE - Anil FOX Study: Project # [id number], Automobile Rental Clerk: Tello Palacios, MS, MPH. SUMMARY: Goal: Establish [...] contact study staff at ; after hours Automobile Rental Clerk via the [facility] hospital wastewater operator . - Please contact study team before resolving/deleting from patients problem list. Study phone number: [phone]. Diagnosis changed due to Research Module. Go to Snapshot for study details. documented as of this encounter (statuses as of 10/27/2023) Immunizations Name Administration Dates Next Due COVID-19 mRNA, LNP-s, No Pre serve, 2-Dose Series (Bo[place]ket) 02/18/2022,08/18/2021,02/03/2021,01/13 Covid-19, Mrna, Lnp-s, Pf, B ivalent, 30 Mcg, IM, 12 yrs and above (Boosket) 08/21/2022 HPV Vaccine, Bivalent 05/23/2012,12/23/2011,02/2012 Hepatitis A [...] on file documented as of this encounter Plan of Treatment Upcoming Encounters Date Type Department Care Team (Late st Contact Info) Description 02/10/2024 3:40 PM EDT Office Visit Family Practice [facility] [address] [place] [address] Corby Kang MD [address] [place] [address] 06/22/2024 2:00 PM EDT Office Visit [facility] [address] [facility] [address] Kristel Guzman, DO [address] [place] [address] Pending Results Name Type Priority Associated Diagnoses Date /Time FERRITIN Lab Routine Anemia, unspecified type 10/27/2023 10:46 AM EST IRON SCREEN, INCLUDING TIBC Lab Routine Anemia, unspecified type 10/27/2023 10:46 AM EST CBC WITH WBC DIFFERENTIAL AND ANEMIA REFLEX WORKUP Lab Routine Loss of weight Anemia, unspecified type 10/27/2023 10:46 AM EST HEPATIC FUNCTION PANEL Lab Routine Loss of weight 10/27/2023 10:46 AM EST TSH WITH FREE T4 IF INDICATED Lab Routine Moderate late onset Alzheimer's dementia without behavioral disturbance, psychotic disturbance, mood disturbance, or anxiety (HCC) 10/27/2023 10:46 AM EST ANEMIA CBC Lab Routine Loss of weight Anemia, unspecified type 10/27/2023 10:46 AM EST DIFFERENTIAL, AUTOMATED Lab Routine Loss of weight Anemia, unspecified type 10/27/2023 10:46 AM EST ANEMIA REFLEX CHEMISTRY HOLD Lab Routine Loss of weight Anemia, unspecified type 10/27/2023 10:46 AM EST Health Maintenance Due Date Last Done Comments DTaP,Tdap,and Td Vaccines (2 - Td or Tdap) 11/03/2017 11/03/2007 Depression Screening 06/07/2023 06/07/2022 COVID-19 Vaccine ( season) 2023 08/21/2022, 02/18/2022, 08/18/2021, Additional history exists TSH 11/02/2023 11/02/2022, 12/22, 02/18/2021 DXA Scan 03/01/2024 03/01/2022, 02/19, 09/03/2019, Additional history exists COLONOSCOPY-EVERY 5 YRS AGES [...] Not on filedocumented as of this encounter Visit Diagnoses Diagnosis Anemia, unspecified type Loss of weight Moderate late onset Alzheimer's dementia without behavioral disturbance, psychotic disturbance, mood disturbance, or anxiety (HCC) documented in this encounter Advance Directives Documents on File Type Date Recorded Patient Television Camera Operator Expl anation Power of Test Operator 04/22/2020 Kristofer Saleem (dtr-in-law) POWER OF ESL TEACHER & ADVANCE DIRECTIVE Healthcare Agents on File Name Relationship Healthcare Agent Relationship Communication Kristofer Saleem Adult Child Health Care Agen t (per Health Care Power of Test Operator document) [email or web address] Marilynn Saleem (dtr-in-law) Other - (no specific identity) First Alternate Health Care Agent (per Health Care Power of Test Operator document) [email or web address] Care Teams Wind Turbine Machinist Relationship Specialty Start Date End Date Corby Kang MD [address] [address] PCP - General Family Medicine 05/20/22 documented as of this encounter
--- OUTSIDE RECORDS SUMMARY | 2023-11-11 06:06 | External Medical Summary ---
Author Name Unknown Address Unknown Organization [id number][facility] [address] [place] [address] Laboratory Report Ordering Provider Test Date Status JOHANNE MATTHEW 10/27/2023 10:46:57 Final Observation Date Value Abnormality Reference (Units ) Status Albumin 10/27/2023 10:46:57 4.8 3.8-5.0 (g/dL) Final AST (Aspartate aminotransferase) 10/27/2023 10:46:57 30 10-35 (U/L) Final Alk Phos 10/27/2023 10:46:57 71 35-130 (U/L) Final ALT (Alanine aminotransferase) 10/27/2023 10:46:57 18 10-35 (U/L) Final Bilirubin, Total 10/27/2023 10:46:57 1.2 <=1.2 (mg/dL) Final Bilirubin, Direct 10/27/2023 10:46:57 0.2 0.0-0.3 (mg/dL) Final Protein 10/27/2023 10:46:57 7.3 6.0-8.3 (g/dL) Final Performing Location LABORATORY [facility] - [address] [place] [address]
--- OUTSIDE RECORDS SUMMARY | 2023-11-11 06:06 | External Medical Summary | Summary of Care ---
Author Name Unknown Organization [facility] Address [address] [place] [address] Phone [phone] Care Team Providers Care Care Attendant Name Role Phone Corby Whiting MD Primary Care Provider + Reason for Visit * Reason Onset Date Comments Medication Refill 11/01/2023 Encounter Details Date Type Department Care Team (Late st Contact Info) Description 11/01/2023 Refill Family Practice [facility] [address] [place] [address] Corby Whiting MD [address] [place] [address] Moderate episode of recurrent major depressive disorder (HCC) Allergies Active Allergy Reactions Criticality Noted Date Comments Codeine 06/09/2022 Other reaction(s): NAUSEA AND VOMITING Hydroxychloroquine Rash High 12/06/2019 Metoprolol 04/30/2021 Morphine 06/09/2022 Other reaction(s): NAUSEA AND VOMITING Oxycodone 06/21/2023 Other reaction(s): Unknown Transdermal Base Edema Other 05/20/2008 Allergic to transdermal estrogen patch documented as of this encounter (statuses as of 11/01/2023) Medications Medication Sig Dispensed Refills Start Date [...] 0 Active Tretinoin 0.05 % External Cream (Retin-A)Indication s:Photoaging of skin APPLY A THIN LAYER TO [...] Active Levothyroxine Sodium 25 MCG Oral Tablet (Levoxyl)Indication s:Acquired hypothyroidism Take 1 Tablet by mouth in the morning. 90 Tablet 1 07/28/2023 Active Rivaroxaban 20 MG Oral Tablet (Xarelto)Indication s:Paroxysmal atrial fibrillation (HCC) Take 1 Tablet by mouth in the morning. 90 Tablet 1 07/28/2023 Active Donepezil HCl 10 MG Oral Tablet (Aricept) Take 10 mg with largest meal daily after finishing 5 mg tablets. 90 Tablet 3 09/02/2023 Active FLUoxetine HCl 40 MG Oral Capsule (PROzac)Indications :Moderate episode of recurrent major depressive disorder (HCC) Take 1 Capsule by mouth in the morning. 90 Capsule 3 11/01/2023 Active FLUoxetine HCl 40 MG Oral Capsule (PROzac)Indications :Moderate episode of recurrent major depressive disorder (HCC) Take 1 Capsule by mouth in the morning. 90 Capsule 1 07/28/2023 3 Discontinu ed(Refill) documented as of this encounter (statuses as of 11/01/2023) Active Problems Problem Noted Date Diagnosed Date [...] mild LAE.. Type 2 Workman dys. 2009 [facility] stress echo WNL 2009 colon pseudopolyp. Chronic pain of multiple joints 11/02/2022 Overview: At one pt, RA considered, MTX used, but [facility] thought was erosive. Postmenopausal atrophic vaginitis 05/03/2022 Paroxysmal atrial fibrillation 05/03/2022 Overview: Noted on preop exam. 05/09.Spontaneously cardioverted. Acquired hypothyroidism 05/03/2022 Moderate episode of recurrent major depressive d isorder 05/03/2022 documented as of this encounter (statuses as of 11/01/2023) Resolved Problems Problem Noted Date Diagnosed Date Resolved Date Encounter for examination fo r normal comparison and control in clinical research program 05/01/2018 06/23/2020 Overview: DO NOT DELETE [facility] DETECT Study: Project # [id number], Veterans Rehabilitation Counselor: Junaid Sharp, PhD. SUMMARY: Goal: Establish test [...] contact study staff at ; after hours Veterans Rehabilitation Counselor via the [facility] hospital ground surveillance systems operator . Please contact study team before resolving/deleting from patients problem list. Study phone number: [phone]. Diagnosis changed due to Research Module. Go to Snapshot for study details. Encounter for examination fo r normal comparison and control in clinical research program 05/01/2018 07/22/2022 Overview: DO NOT DELETE - [facility] Study: Project # [id number], Veterans Rehabilitation Counselor: Tello Palacios, MS, MPH. SUMMARY: Goal: Establish [...] contact study staff at ; after hours Veterans Rehabilitation Counselor via the [facility] hospital ground surveillance systems operator . - Please contact study team before resolving/deleting from patients problem list. Study phone number: [phone]. Diagnosis changed due to Research Module. Go to Snapshot for study details. documented as of this encounter (statuses as of 11/01/2023) Immunizations Name Administration Dates Next Due COVID-19 mRNA, LNP-s, No Pre serve, 2-Dose Series (Facio) 02/18/2022,08/18/2021,02/03/2021,01/13 Covid-19, Mrna, Lnp-s, Pf, B ivalent, 30 Mcg, IM, 12 yrs and above (Facio) 08/21/2022 HPV Vaccine, Bivalent 05/23/2012,12/23/2011,02/2012 Hepatitis A [...] encounter Miscellaneous Notes * Telephone Encounter - Leonor Hidalgo, [facility] - 11/01/2023 5:14 PM ESTSigned Prescriptions: Disp Refills FLUoxetine HCl 40 MG Oral Capsule (PROzac) 90 Cap*3 Sig: Take 1 Capsule by mouth in the morning.Authorizing Provider: CORBY WHITING User: LEONOR HIDALGO documented in this encounter Plan of Treatment Upcoming Encounters Date Type Department Care Team (Late st Contact Info) Description 02/10/2024 3:40 PM EDT Office Visit Family Practice [facility] [address] [place] [address] Corby Whiting MD [address] [place] [address] 06/22/2024 2:00 PM EDT Office Visit Neurology [facility] [address] [place] [address] Kristel Guzman, DO [address] [place], [place] [id number] Health Maintenance Due Date Last Done Comments [...] as of this encounter Visit Diagnoses Diagnosis Moderate episode of recurrent major depressive disorder (HCC) documented in this encounter Advance Directives Documents on File Type Date Recorded Patient Manager Branch Expl anation Power of Medical Insurance Coder 04/22/2020 Kristofer Saleem (dtr-in-law) POWER OF PRINTER SMALL PRINT SHOP & ADVANCE DIRECTIVE Healthcare Agents on File Name Relationship Healthcare Agent Relationship Communication Kristofer Saleem Adult Child Health Care Agen t (per Health Care Power of Medical Insurance Coder document) [email or web address] Marilynn Saleem (dtr-in-law) Other - (no specific identity) First Alternate Health Care Agent (per Health Care Power of Medical Insurance Coder document) [email or web address] Care Teams Care Attendant Relationship Specialty Start Date End Date Corby Whiting MD [address] [place] [address] PCP - General Family Medicine 05/20/22 documented as of this encounter
--- OUTSIDE RECORDS SUMMARY | 2023-11-11 06:06 | External Medical Summary ---
Author Name Unknown Address Unknown Organization K01:LABORATORY [facility] - [address] [facility] [address] Laboratory Report Ordering Provider Test Date Status JOHANNE MATTHEW 10/27/2023 10:46:57 Final Observation Date Value Abnormality Reference (Units ) Status Iron 10/27/2023 10:46:57 61 33-151 (ug /dL) Final Iron-binding capacity 10/27/2023 10:46:57 270 250-425 (ug/dL) Final Transferrin Sat % 10/27/2023 10:46:57 23 15 -55 (%) Final Performing Location LABORATORY [facility] - [address] [facility] [address]
--- OUTSIDE RECORDS SUMMARY | 2023-11-11 06:06 | External Medical Summary ---
Author Name Unknown Address Unknown Organization K01:LABORATORY [facility] [place] [place] - [address] [facility] [address] Laboratory Report Ordering Provider Test Date Status JOHANNE MATTHEW 10/27/2023 10:46:57 Final Observation Date Value Abnormality Reference (Units ) Status TSH 10/27/2023 10:46:57 3.14 0.27-4.20 (uIU/mL) Final Performing Location LABORATORY [facility] [place] [place] - [address] [facility] [address]
--- OUTSIDE RECORDS SUMMARY | 2023-11-11 06:06 | External Medical Summary | Summary of Care ---
Author Name Unknown Organization [facility] Address [address] [place] [address] Phone [phone] Care Team Providers Care Cloak Room Attendant Name Role Phone Corby Kang MD Primary Care Provider + Reason for Visit * Reason Comments NEW PATIENT Memory Problems * Evaluate & Treat - Unlimited Visits (Within 10 days (routine)) - Authorized Specialty Diagnoses / Procedures Referred By Contivy t Referred To Contact Psychology Diagnoses Mild late onset Alzheimer's dementia without behavioral disturbance, psychotic disturbance, mood disturbance, or anxiety (HCC) Kristel Guzman, DO [address] [place] [address] Referral ID Status Reason Start Date Expiration Date Visits Requested Visits Authorized [id number] Authorized Specialty Services Required 3 09/01/2024 [id number] Encounter Details Date Type Department Care Team (Late st Contact Info) Description 09/30/2023 1:00 PM EST Telemedicine Neuropsychology, [place] [address], [place] [id number] Jessica Newsome LCSW [address] [place] [address] Late onset Alzheimer's dementia with mood disturbance (HCC)* Allergies Active Allergy Reactions Criticality Noted Date Comments Codeine 06/09/2022 Other reaction(s): NAUSEA AND VOMITING Hydroxychloroquine Rash High 12/06/2019 Metoprolol 04/30/2021 Morphine 06/09/2022 Other reaction(s): NAUSEA AND VOMITING Oxycodone 06/21/2023 Other reaction(s): Unknown Transdermal Base Edema Other 05/20/2008 Allergic to transdermal estrogen patch documented as of this encounter (statuses as of 10/04/2023) Medications Medication Sig Dispensed Refills Start Date [...] 90 Tablet 1 07/28/2023 Active Donepezil HCl 5 MG Oral Tablet (Aricept) Take 1 tablet with largest meal daily for 28 days, then 10 mg with largest meal daily thereafter. 28 Tablet 0 09/02/2023 Active Donepezil HCl 10 MG Oral Tablet (Aricept) Take 10 mg with largest meal daily after finishing 5 mg tablets. 90 Tablet 3 09/02/2023 Active documented as of this encounter (statuses as of 10/04/2023) Active Problems Problem Noted Date Diagnosed Date History of 2019 novel coronavirus disease (COVID -19) 11/02/2022 Overview: Suspected. Lost smell. Fatigue. Dementia 11/02/2022 Overview: 02/10 son is POA. neuropsych testing ordered. Well adult exam 11/02/2022 Overview: Son Kristofer Saleem w/medical POA (he is to fax) 03/12 colon [facility] +Tubular adenoma. 05/09 Echo normal EF Mod TR mild LAE.. Type 2 Workman dys. 2009 [facility] stress echo WNL 2009 colon pseudopolyp. Chronic pain of multiple joints 11/02/2022 Overview: At one pt, RA considered, MTX used, but [facility] thought was erosive. Postmenopausal atrophic vaginitis 05/03/2022 Paroxysmal atrial fibrillation 05/03/2022 Overview: Noted on preop exam. 05/09.Spontaneously cardioverted. Acquired hypothyroidism 05/03/2022 Moderate episode of recurrent major depressive d isorder 05/03/2022 documented as of this encounter (statuses as of 10/04/2023) Resolved Problems Problem Noted Date Diagnosed Date Resolved Date Encounter for examination fo r normal comparison and control in clinical research program 05/01/2018 06/23/2020 Overview: DO NOT DELETE [facility] DETECT Study: Project # [id number], Floral Arranger: Junaid Sharp, PhD. SUMMARY: Goal: Establish test [...] contact study staff at ; after hours Floral Arranger via the [facility] exchange operator . Please contact study team before resolving/deleting from patients problem list. Study phone number: [phone]. Diagnosis changed due to Research Module. Go to [employer]DrugCosts for study details. Encounter for examination fo r normal comparison and control in clinical research program 05/01/2018 07/22/2022 Overview: DO NOT DELETE - [facility] DOMINIQUE Study: Project # [id number], Floral Arranger: Tello Palacios, MS, MPH. SUMMARY: Goal: Establish [...] contact study staff at ; after hours Floral Arranger via the [facility] exchange operator . - Please contact study team before resolving/deleting from patients problem list. Study phone number: [phone]. Diagnosis changed due to Research Module. Go to [employer]DrugCosts for study details. documented as of this encounter (statuses as of 10/04/2023) Immunizations Name Administration Dates Next Due COVID-19 mRNA, LNP-s, No Pre serve, 2-Dose Series (g4interactive) 02/18/2022,08/18/2021,02/03/2021,01/13 Covid-19, Mrna, Lnp-s, Pf, B ivalent, 30 Mcg, IM, 12 yrs and above (Pfizer) 08/21/2022 HPV Vaccine, Bivalent 05/23/2012,12/23/2011,02/2012 Hepatitis A Vaccine 02/10/2015,08/13/2014 Hepatitis B Vaccine 06/13/2012,01/10/2012,2011 Pneumococcal Conjugate Vacc, 13 Valent (Prevnar) 10/09/2014 Pneumococcal Polysaccharide PPV23 (Pneumovax) 09/03/2022,08/14/2021,03/02/2010 Seasonal Influenza, Quadriva lent Hd, 65+ Yrs [...] on file documented as of this encounter Progress Notes * Jessica Newsome, EDGARDO - 10/04/2023 9:22 AM EST [facility] Division of Psychiatry [place], [place] [id number] Telemedicine visit was changed to telephone due to technological delays. My office door was closed. No one else was in the room with me. I informed the patient that I have reviewed their record in [facility] and presented the opportunity for them to ask any questions regarding the visit today. The patient agreed to participate. Provider reviewed elements of Outpatient Services Description including limits of confidentiality, how to contact the department, risks and benefits of treatment and consent for treatment. Confirm patient's location (and address if different from the home address documented in [facility]) at the time of this appointment: Son confirmed his mother's information and verified that he also resides in [place] at address listed on file. Outpatient Treatment Summary Admission Date: 09/30/2023 Discharge Date: No. Sessions Attended: 1 Chief Complaint: "What resources are there for my mother" Modalities Utilized: Individual therapy via telephone visit using CBT, OH, and reality therapies. Specifically: Supportive listening Cognitive behavioral therapy Interpersonal therapy Problem solving Behavioral Activation Motivational interviewing Acceptance & Commitment Therapy (ACT) Diagnosis: Caregiver Stress for son, Kristofer, as the informal care support for his mother Mica is diagnosed with Mild late onset Alzheimer's dementia without behavioral disturbance, psychotic disturbance, mood disturbance, or anxiety (HCC) Total time spent on visit: 60 minutes Provider met with patient's son to assess for patient needs and provide support/resources. Kristofer states that his mother resides in [place], [place], and is a retired from [employer]. She currently resides alone and they do have an informal caregiver/mental health therapist that checks in on her 2xs week. Her son Kristofer has primarily been involved in her care, more so during the summer. He has implemented a "fancy" pill dispenser as she does not do well taking them on her own. He notes that his mother does not really have ties to the [place] area after she retired as she's and she does not have many friends or family nearby. Her family (son, daughter in law and a brother) live in [place]. She would like to move closer to them. Kristofer noted that they are trying to find a fpc community near them. Provider discussed about moving his mother close to them, possibly with her brother, until a facility can be found. Advised that services can be arranged to help provide care and oversight in the interim. He notes that he will have to review this with his uncle. They plan on visiting his mother for Thanksgiving and will continue working on arranging tours of memory care facilities. Mica does have afinancial advisor and fdc care insurance that can pay towards care. Routine assessments of ALAYNA/PHQ and CSSRS were not implemented during this visit and will complete when clinically appropriate. 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 Lost smell. Fatigue. Mild Alzheimer's dementia without behavioral disturbance, psychotic disturbance, mood disturbance, or anxiety ([facility]) diagnoed on neuropsych testing 07/2023 Paroxysmal atrial fibrillation (HCC) 05/03/2022 Noted on preop exam. 05/09.Spontaneously cardioverted. Primary generalized (osteo)arthritis CURRENT MEDICATIONS: Current Outpatient Medications Medication Sig Dispense Refill AMOXICILLIN 500 MG PO CAPS Take by mouth. (Patient not taking: Reported on 09/02/2023) VITAMIN D 1000 UNITS PO TABS twice daily B Complex-C CAPS Take by mouth. Latanoprost 0.005 % Ophthalmic Solution (Xalatan) Start: 06/26/20 13:27:00 EDT, 1 drop, right eye, Daily Magnesium 250 MG Oral Tablet Take 1 Tablet by mouth in the morning. Metoprolol Succinate ER 25 MG Oral Tablet Extended Release 24 Hour (toPROL XL) Take 1 Tablet by mouth in the morning. Tretinoin 0.05 % External Cream (Retin-A) APPLY A THIN LAYER TO WHOLE FACE NIGHTLY, CAN MIX WITH MOISTURIZER IF SKIN IS DRY 45 g 2 dilTIAZem HCl ER Coated Beads 120 MG Oral Capsule Extended Release 24 Hour (Cardizem CD) Take 1 Capsule by mouth in the morning. Takes only before a "hike". 1 Capsule 0 Ferrous Sulfate 325 (65 Fe) MG Oral Tablet Take 1 Tablet by mouth daily with breakfast. FLUoxetine HCl 40 MG Oral Capsule (PROzac) Take 1 Capsule by mouth in the morning. 90 Capsule 1 Levothyroxine Sodium 25 MCG Oral Tablet (Levoxyl) Take 1 Tablet by mouth in the morning. 90 Tablet 1 Rivaroxaban 20 MG Oral Tablet (Xarelto) Take 1 Tablet by mouth in the morning. 90 Tablet 1 Donepezil HCl 5 MG Oral Tablet (Aricept) Take 1 tablet with largest meal daily for 28 days, then 10mg with largest meal daily thereafter. 28 Tablet 0 Donepezil HCl 10 MG Oral Tablet (Aricept) Take 10 mg with largest meal daily after finishing 5 mg tablets. 90 Tablet 3 No current facility-administered medications for this visit. Living Condition: Alone in [place], [place] ADL's: Per son, can handle for now without major concerns ADLs and IADLs: ADLs: Dressing intact Showering/bathing intact Toileting intact Continence intact Ambulation intact IADLs: Housekeeping intact Cooking intact Shopping intact Finances intact Medication mgmt intact (pill box) Keeping calendar intact Driving intact Daily support needs:Supervision, prompting/cueing Transportation: Needs public transportation or friends Behaviors/Concerns: Denies Psych history: Depression by history due to family circumstances of SA Mood: N/A Additional Life Stressors: Potential move to a different [facility] Fall/Safety Risks: Denies 13/06 Care giving needs: Supervision Life Alert/Security Sytem: would recommend Who does patient call in crisis? Son, 911 Supports: Son and extended family [place] Suicide Prevention Lifeline: National Crisis Text Line: 092511 Text: 988 Veterans Crisis Line: Nearest [facility]- Text 428034 or Dial 988 and Press 13/06. Crisis Intervention Numbers for Selected [facility] Within the [facility]: [facility]: [facility] Crisis Intervention: [phone] | [phone] [facility]: , [facility] [place]: , [facility] Crisis Intervention Services [facility]: , Choose Option 1, [facility] of Frontload Driver [place]: [facility] - Crisis Intervention [facility]- [phone] or [facility]: , [facility] - Crisis Services [facility]: , [employer] (JACEK) Jean/Luis: , [place] - Mental Health Crisis Intervention Services [facility] Crisis: [phone] or Anne, Osmin, Jannie and Mfxim-[phone] or [phone] or [phone] [place]: [employer] Lifelines: [phone] or [phone] [place]: , [place] [facility] - Crisis Line [place]: [place]/[facility]/ID [facility] Lifelines: [phone] or [facility]: Tri[place]County Crisis [place]: [facility] [place]: Tri-County Crisis [facility]: [facility] [phone] [place]: [phone] [place]: [facility] [place] Crisis [place]: [phone] or [phone] [facility]: [phone] or [facility]: [phone] [facility]: [facility] Services [facility]--[phone] or [facility]: [facility] - or [place] [phone] TREATMENT PLAN Outpatient Adult Therapy Treatment Plan Treatment plan was developed on 10/04/23, treatment will continue to focus on goals below; Treatment update will occur when clinically indicated or by 03/31/2024. Patient's goals captured in patient's words: "Son wanted information and referral for resources" Expected family or significant other involvement: Participate in visits, Offer Support, and Crisis Support Type of Service:Individual and Family Patients Strengths and Facilitating Factors to care: Good support system, Access to housing, and Financial stability Treatment Barriers: transportation is a concern due to revocation of license Crisis Planning: What I can do if I ever experience a crisis (much worse symptoms, severe distress or thoughts of self-harm): Relaxation/Breathing exercises/Yoga, Exercise/Walk, Talking to loved one or friend or trusted person, Find solutions, Distraction on computer/TV, Prayer/Geno, and Express my feelings People I can call in the event of a crisis: Family Member: aldo Miner Additional resources I can utilize if the previous steps are ineffective (e.g: ED, hotlines): Suicide and Crisis Lifeline - 988 Signature Obtained on Treatment Plan Patient/ Family Received Copy of Treatment Plan Duration of Treatment Frequency of Treatment Patient unable to sign Treatment Plan acknowledgement document. Signature will be obtained at the time or before [facility] bulletin extension expires. Patient has access to [facility] [place] 2-4 sessions every other month or more frequently as needed Patient Identified Needs/Goals Interventions Objective/ Discharge Criteria Problem/Need 1: Other: Information and referral for community resources in [facility] Cognitive Behavioral Therapy (CBT), which includes psychoeducation, cognitive restructuring, relaxation/diaphragmatic breathing, problem-solving, and behavioral activation Other: Family establishes criteria and timeframe for transition of care (moving closer to family) and or establishing services closer to home. Please choose a method to track patient's improvement based on clinical assessment: Family are in agreement with establishing resources for Mica. Discharge Discussed with patient: Patient is not ready for discharge Collaboration of Care: Yes, provider within [facility], information is shared automatically in medical record Is this the patients' initial treatment plan? Yes The assessment and plan was based on the information obtained during the appointment. The assessment for Mica is detailed at the beginning of this report. Provider offered educational material: Alzheimer's Association( [email or web address] HELPLINE [phone] Home Health and fdc planning. Securely emailed to Kristofer carlson, local resources which included home health agencies in [place], and Assisted Living/s near [facility]. Referrals: None Follow up: Encouraged son to reach out with any additional needs and provided clinic phone number. Jessica Newsome LCSW CCTP CDP Division of Psychiatry & Behavioral Medicine Neuropsychology, [facility] [address] [facility] [address] documented in this encounter Plan of Treatment Upcoming Encounters Date Type Department Care Team (Late st Contact Info) Description 10/27/2023 9:40 AM EST Office Visit [facility] [address] [place] [address] Corby Kang MD [address] [facility] [place] [address] 03/02/2024 9:20 AM EDT Office 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 behavioral disturbance, psychotic disturbance, mood disturbance, or anxiety (HCC) Ordered: 09/02/2023 Health Maintenance Due Date Last Done Comments DTaP,Tdap,and Td Vaccines (2 - Td or Tdap) 11/03/2017 11/03/2007 Depression Screening 06/07/2023 06/07/2022 COVID-19 Vaccine ( season) 2023 08/21/2022, 02/18/2022, 08/18/2021, Additional history exists Influenza Vaccine (FLU shot) (#1) 2023 07/26/2022, 07/30/2021, 07/06/2020, Additional history exists TSH 11/02/2023 11/02/2022, 12/22, [...] Completed 09/03/2022, 08/14/2021, 10/09/2014, Additional history exists Cologuard Discontinued Fecal Occult Blood Test Discontinued MENINGOCOCCAL (MENACTRA/MENVEO) Aged Out No longer eligible based on patient's age to complete this topic Sigmoidoscopy Discontinued documented as of this encounter Medical Devices Not on filedocumented as of this encounter Visit Diagnoses Diagnosis Late onset Alzheimer's dementia with mood disturbance (HCC)- Primary documented in this encounter Advance Directives Documents on File Type Date Recorded Patient Customer Sales Specialist Expl anation Power of Academic Adviser 04/22/2020 Kristofer Saleem (dtr-in-law) POWER OF GAME DEVELOPER & ADVANCE DIRECTIVE Healthcare Agents on File Name Relationship Healthcare Agent Relationship Communication Kristofer Saleem Adult Child Health Care Agen t (per Health Care Power of Academic Adviser document) [email or web address] Marilynn Saleem (dtr-in-law) Other - (no specific identity) First Alternate Health Care Agent (per Health Care Power of Academic Adviser document) [email or web address] Care Teams Cloak Room Attendant Relationship Specialty Start Date End Date Corby Kang MD [address] [place] [address] PCP - General Family Medicine 05/20/22 documented as of this encounter
--- OUTSIDE RECORDS SUMMARY | 2023-11-11 06:06 | External Medical Summary | Summary of Care ---
Author Name Unknown Organization [facility] Address [address] [facility] [address] Phone [phone] Care Team Providers Care Marriage Counselor Name Role Phone Corby Kang MD Primary Care Provider + Reason for Visit * Reason Onset Date Comments Appointment 11/01/2023 Encounter Details Date Type Department Care Team (Late st Contact Info) Description 11/01/2023 [facility] [address] [place] [address] Kristofer Gaona CRNP [address] [place] [address] Appointment Allergies Active Allergy Reactions Criticality Noted Date [...] mild LAE.. Type [address] [facility] stress echo WNL 2009 colon pseudopolyp. [...] program 05/01/2018 06/23/2020 Overview: DO NOT DELETE [facility] DETECT Study: Project # [id number], Relish Blender: Junaid Sharp, PhD. SUMMARY: Goal: Establish test [...] contact study staff at ; after hours Relish Blender via the [facility] thermal cutting tracer machine operator . Please contact study team before resolving/deleting from patients problem list. Study phone number: [phone]. Diagnosis changed due to Research Module. Go to Snapshot for study details. Encounter for examination fo r normal comparison and control in clinical research program 05/01/2018 07/22/2022 Overview: DO NOT DELETE - [facility] DETECT Study: Project # [id number], Relish Blender: Tello Palacios, MS, MPH. SUMMARY: Goal: Establish [...] contact study staff at ; after hours Relish Blender via the [facility] thermal cutting tracer machine operator . - Please contact study team before resolving/deleting from patients problem list. Study phone number: [phone]. Diagnosis changed due to Research Module. Go to Snapshot for study details. documented as of this encounter (statuses as of 11/01/2023) Immunizations Name Administration Dates Next Due COVID-19 mRNA, LNP-s, No Pre serve, 2-Dose Series (Jobool) 02/18/2022,08/18/2021,02/03/2021,01/13 Covid-19, Mrna, Lnp-s, Pf, B ivalent, 30 Mcg, IM, 12 yrs and above (Jobool) 08/21/2022 HPV Vaccine, Bivalent 05/23/2012,12/23/2011,02/2012 Hepatitis A [...] encounter Miscellaneous Notes * Telephone Encounter - Vanessa Vega OSA - 11/01/2023 3:11 PM EST Lmom to call and reschedule return appt with Provider Jimenez documented in this encounter Plan of Treatment Upcoming Encounters Date Type Department Care Team (Late st Contact Info) Description 02/10/2024 3:40 PM EDT Office Visit Family [facility] [address] [place] [address] Corby Kang MD [address] [place] [address] 06/22/2024 2:00 PM EDT Office Visit Neurology Mike [facility] [place] [address] [place] [address] Kristel Guzman, [address] [facility] [place] [address] Health Maintenance Due Date Last Done Comments [...] on File Type Date Recorded Patient Pipe Racker Expl anation Power of Tooling Specialist 04/22/2020 Kristofer Saleem (dtr-in-law) POWER OF DELPHI PROGRAMMER & ADVANCE DIRECTIVE Healthcare Agents on File Name Relationship Healthcare Agent Relationship Communication Kristofer Saleem Adult Child Health Care Agen t (per Health Care Power of Tooling Specialist document) [email or web address] Marilynn Saleem (dtr-in-law) Other - (no specific identity) First Alternate Health Care Agent (per Health Care Power of Tooling Specialist document) [email or web address] Care Teams Marriage Counselor Relationship Specialty Start Date End Date Corby Kang MD [address] [place] [address] PCP - General Family Medicine 05/20/22 documented as of this encounter
--- OUTSIDE RECORDS SUMMARY | 2023-11-11 06:06 | External Medical Summary ---
Author Name Unknown Address Unknown Organization K01:LABORATORY [facility] - [address] [facility] [address] Laboratory Report Ordering Provider Test Date Status JOHANNE MATTHEW 10/27/2023 10:46:57 Final Observation Date Value Abnormality Reference (Units ) Status WBC, Total 10/27/2023 10:46:57 5.88 4.00-10.8 0 (K/uL) Final RBC 10/27/2023 10:46:57 4.50 3.85-5.15 (M/uL) Final Hemoglobin 10/27/2023 10:46:57 14.2 12.0-15.3 (g/dL) Final Anemia reflex testing trigge rs on a HGB < 12.0 for Females and HGB < 13.0 for Males in accordance with the WHO Anemia Guidelines
Anemia reflex testing triggers on a HGB < 12.0 for Females and HGB < 13.0 for Males in accordance with the WHO Anemia Guidelines HCT 10/27/2023 10:46:57 41.3 36.0-45.2 (%) Final MCV 10/27/2023 10:46:57 91.8 81.5-97.5 (fL) Final MCH 10/27/2023 10:46:57 31.6 27.0-34.0 (pg) Final MCHC 10/27/2023 10:46:57 34.4 32.0-36.0 (g/dL) Final RDW 10/27/2023 10:46:57 13.1 11.5-15.5 (%) Final Platelets 10/27/2023 10:46:57 312 140-400 (K /uL) Final MPV 10/27/2023 10:46:57 9.8 6.6-11.1 ( fL) Final Nucleated erythrocytes/100 leukocytes [Ratio] in Blood by Automated count 10/27/2023 10:46:57 0 <=0 (/100 WBCs) [facility] Performing Location LABORATORY [facility] - [address] [facility] [address]
--- OUTSIDE RECORDS SUMMARY | 2023-11-11 06:06 | External Medical Summary | Summary of Care ---
Author Name Unknown Organization [facility] Address [address] [place] [address] Phone [phone] Care Team Providers Care Tool Design Engineer Name Role Phone Corby Kang MD Primary Care Provider + Reason for Visit * Reason Onset Date Comments Follow Up Pt here for 4 mo nth follow up with son. Pts son states his mother is frequently c/o fatigue and lightheadedness Medication Administration 10/27/2023 Flu an d/or Pneumo Inj Encounter Details Date Type Department Care Team (Late st Contact Info) Description 10/27/2023 9:40 AM EST Office Visit Family Practice [facility] [address] [facility] [place] [address] Corby Kang MD [address] [facility] [place] [id number] Moderate late onset Alzheimer's dementia without behavioral disturbance, psychotic disturbance, mood disturbance, or anxiety (HCC)*; Loss of weight; Anemia, unspecified type; Need for prophylactic vaccination and inoculation against influenza Allergies Active Allergy Reactions Criticality Noted Date [...] EDT, 1 drop, right eye, Daily 0 0 Active Magnesium 250 MG Oral Tablet Take [...] IF SKIN IS DRY 45 g 2 2 Active dilTIAZem HCl ER Coated Beads 120 MG Oral Capsule Extended Release 24 Hour (Cardizem CD) Take 1 Capsule by mouth in the morning. Takes only before a "hike". 1 Capsule 0 2 Active Ferrous Sulfate 325 (65 Fe) MG Oral Tablet Take 1 Tablet by mouth daily with breakfast. 0 Active FLUoxetine HCl 40 MG Oral Capsule (PROzac)Indications :Moderate episode of recurrent major depressive disorder (HCC) Take 1 Capsule by mouth in the morning. 90 Capsule 1 3 Active Levothyroxine Sodium 25 MCG Oral Tablet (Levoxyl)Indication s:Acquired hypothyroidism Take 1 Tablet by mouth in the morning. 90 Tablet 1 3 Active Rivaroxaban 20 MG Oral Tablet (Xarelto)Indication s:Paroxysmal atrial fibrillation (HCC) Take 1 Tablet by mouth in the morning. 90 Tablet 1 3 Active Donepezil HCl 10 MG Oral Tablet (Aricept) Take 10 mg with largest meal daily after finishing 5 mg tablets. 90 Tablet 3 3 Active Donepezil HCl 5 MG Oral Tablet (Aricept) Take 1 tablet with largest meal daily for 28 days, then 10 mg with largest meal daily thereafter. 28 Tablet 0 3 10/27/20 23 Discontinued documented as of this encounter (statuses as of 10/27/2023) Active Problems Problem Noted Date Diagnosed Date Late onset Alzheimer's dementia with mood distkiran yang 10/27/2023 History of 2019 novel coronavirus disease (COVID -19) 11/02/2022 Overview: Suspected. Lost smell. Fatigue. Dementia 11/02/2022 Overview: 02/10 son is POA. neuropsych testing ordered. Well adult exam 11/02/2022 Overview: Son Kristofer Saleem w/medical POA (he is to fax) 03/12 colon [facility] +Tubular adenoma. 05/09 Echo normal EF Mod TR mild LAE.. Type 2 Workman dys. 2009 [facility] stress echo WNL 2009 colon pseudopolyp. [...] program 05/01/2018 06/23/2020 Overview: DO NOT DELETE [facility] DET[facility] Study: Project # [id number], Glove Examiner: Junaid Sharp, PhD. SUMMARY: Goal: Establish test [...] contact study staff at ; after hours Glove Examiner via the [facility] mincing machine operator . Please contact study team before resolving/deleting from patients problem list. Study phone number: [phone]. Diagnosis changed due to Research Module. Go to Snapshot for study details. Encounter for examination fo r normal comparison and control in clinical research program 05/01/2018 07/22/2022 Overview: DO NOT DELETE - [facility] Study: Project # [id number], Glove Examiner: Tello Palacios, MS, MPH. SUMMARY: Goal: Establish [...] contact study staff at ; after hours Glove Examiner via the [facility] hospital mincing machine operator . - Please contact study team before resolving/deleting from patients problem list. Study phone number: [phone]. Diagnosis changed due to Research Module. Go to [employer] for study details. documented as of this encounter (statuses as of 10/27/2023) Immunizations Name Administration Dates Next Due COVID-19 mRNA, LNP-s, No Pre serve, 2-Dose Series ([employer]) 02/18/2022,08/18/2021,02/03/2021,01/13 Covid-19, Mrna, Lnp-s, Pf, B ivalent, [...] on file documented as of this encounter Last Filed Vital Signs Vital Sign Reading Time Taken Comments Blood Pressure 110/68 10/27/2023 9:46 AM EST Pulse 56 10/27/2023 9:46 AM EST Temperature 36.6 C (97.8 F) 10/27/2023 9:46 AM ES T Respiratory Rate 18 10/27/2023 9:46 AM EST Oxygen Saturation - - Inhaled Oxygen Concentration - - Weight 49 kg (108 lb) 10/27/2023 9:46 AM EST Height 162.6 cm (5' 4") 10/27/2023 9:46 AM EST Body Mass Index 18.54 10/27/2023 9:46 AM EST documented in this encounter Progress Notes * Corby Kang MD - 10/27/2023 10:22 AM EST SUBJECTIVE: Mica Saleem is a 78 year old female here for Follow Up (Pt here for 4 month follow up with son. Pts son states his mother is frequently c/o fatigue and lightheadedness) and Medication Administration (Flu and/or Pneumo Inj) . Here for f/u with son Kristofer Saleem. She continues to live by herself. They have an aide they higher to come in a couple days a week to check on her. She is getting [employer] meals, but often doesn't eat 3 meals a day. She is no longer driving--license was taken back by [facility]. -her son & her brother have 3 assisted care homes near him in [facility] that they are going to look at next week. Planning to move her down there. Tolerating donazepil. Weight is down. Feeling fatigued. Doesn't recall recent events, conversations (such as when I saw her walking down street holding 2 floor lamps last weekend.) Had anemia hgb 8 when hosp over summer w/babesiosis & suspected LYme. No fever, chills, chest pain, shortness of breath, headache, nausea, vomit, diarrhea, constipation or vision changes ROS: Negative except above. 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 Lost smell. Fatigue. Mild Alzheimer's dementia without behavioral disturbance, psychotic disturbance, mood disturbance, or anxiety (HCC) diagnoed on neuropsych testing 07/2023 Paroxysmal atrial fibrillation (HCC) 05/03/2022 Noted on preop exam. 05/09.Spontaneously cardioverted. Primary generalized (osteo)arthritis Past Surgical History: Procedure Laterality Date COLONOSCOPY W/ LESION REMOVAL, SNARE 07/22/2010 diverticulosis, polyp x1 path shows inflammatory tissue repeat in 10 years FOOT/TOE SURGERY NEC Left 05/08/2019 Dr Corby Holder. left genesis asteotomy with internal fx 1st toe, 3rd toe arthroplasty with fixation, Weill osteotomy and flexor tenotomy #4. 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 Tobacco Use Smoking status: Never Smokeless tobacco: Never Substance and Sexual Activity Alcohol use: No Drug use: No Sexual activity: Not Currently Comment: -suicide, 1 son alive, 1 son suicide. 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 Hx , suicide. Hx emotional abuse 1 son committed suicide 1 son alive.--talks weekly on phone, sees in person occ (his 's mother lives in [place]). Social Determinants of Health Financial Resource Strain: Not on file Food Insecurity: No Food Insecurity (03/11/2023) Hunger Vital Sign Worried About Running Out of Food in the Last Year: Never true Ran Out of Food in the Last Year: Never true Transportation Needs: Not on file Physical Activity: Not on file Stress: Not on file Social Connections: Not on file Intimate Partner Violence: Not on file Housing Stability: Not on file Family History Problem Relation Age of Onset Other (Suicide) Son Current Outpatient Medications Medication Sig Dispense Refill AMOXICILLIN 500 MG PO CAPS Take by mouth. VITAMIN D 1000 UNITS PO TABS twice [...] the morning. 90 Tablet 1 Donepezil HCl 10 MG Oral Tablet (Aricept) Take 10 mg with largest meal daily after finishing 5 mg tablets. 90 Tablet 3 No current facility-administered medications for this visit. Physical: BP 110/68 | Pulse 56 | Temp 36.6 C (97.8 F) (Tympanic) | Resp 18 | Ht 1.626 m (5' 4") | Wt 49 kg (108 lb) | BMI 18.54 kg/m | BSA 1.49 m General-No apparent Distress Head, Eyes, Ears, Nose, Throat--Normocephalic, atraumatic Neck-Supple Lymph-no lymphadenopathy Lungs-Clear to Auscultation bilaterally Cardiovascular--Regular rate & Rhythm, +s1, s2, no murmur Abdomen-soft, nontender, nondistended + bowel sounds Extremities--no edema Neuro-alert & oriented x3 (G30.1, F02.B0) Moderate late onset Alzheimer's dementia without behavioral disturbance, psychotic disturbance, mood disturbance, or anxiety (HCC) (primary encounter diagnosis) Plan: TSH WITH FREE T4 IF INDICATED -rec start [employer] protein shakes 1-2 day -discussed lack of appetite normal part of progression of illness -highly recommend getting her into assisted living DONI -having psychometrician come to watch her have lunch to make sure she eats it (R63.4) Loss of weight Plan: CBC WITH WBC DIFFERENTIAL AND ANEMIA REFLEX WORKUP, HEPATIC FUNCTION PANEL Suspect from alz. No red flags (D64.9) Anemia, unspecified type Plan: CBC WITH WBC DIFFERENTIAL AND ANEMIA REFLEX WORKUP (Z23) Need for prophylactic vaccination and inoculation against influenza Plan: INFLUENZA VACC, QUAD, HIGH DOSE (FLUZONE HD) I spent a total of 40-54 minutes (exact time 45 mins) on the date of service in preparation, delivery, and documentation of the care provided to Mica Saleem excluding any time spent in the performance of separately billed services. (This note was completed using the dictation program Fluency Direct. As such, there may be misspellings, word substitutions, or other variations that should not change the essence of the clinical content of this encounter note.If there is need for further clarification, please direct questions to the provider listed above.) Corby Kang MD * Lisa Lind LPN - 10/27/2023 10:19 AM EST PRE - ADMINISTRATION DOCUMENTATION Are you experiencing any cold symptoms or fever? No Have you had Guillain-Osmond Syndrome (an illness that causes paralysis) within the last 6 weeks? No Have you had the flu shot in the past? YES Have you ever had a reaction to the flu shot? No Lisa Lind LPN, 10/27/2023 10:19 AM Immunization Administration Documentation Time Out Procedure Performed: Yes Patient Identified (Ask Name/Date of ): Yes Does the patient have a fever greater than 101 degrees today? No Patient allergic to latex? No VFC Stock: No Immunization(s) verified: Yes, Immunization Name: Flu, VIS Sheet(s) given: Yes Verified Side and Site: Yes Verified Shot(s) with Parent(s)/Patient: Yes documented in this encounter Nursing Notes * Lisa Lind LPN - 10/27/2023 9:46 AM EST The patient has been properly identified by confirmation of name and date of . Chief Complaint Patient presents with Follow Up Pt here for 4 month follow up with son. Pts son states his mother is frequently c/o fatigue and lightheadedness documented in this encounter Plan of Treatment Upcoming Encounters Date Type Department Care Team (Late st Contact Info) Description 02/10/2024 3:40 PM EDT Office Visit Family Practice [facility] [address] [place] [address] Corby Kang MD [address] [place] [address] 06/22/2024 2:00 PM EDT Office Visit [facility] [address] [facility] [address] Kristel Guzman, DO [address] [place], [place] [id number] Scheduled Orders Name Type Priority Associated Diagnoses Orde r Schedule CBC WITH WBC DIFFERENTIAL AND ANEMIA REFLEX WORKUP Lab Routine Loss of weight Anemia, unspecified type Expected: 10/27/2023 (Approximate), Expires: 10/27/2024 HEPATIC FUNCTION PANEL Lab Routine Loss of weight Expected: 10/27/2023 (Approximate), Expires: 10/26/2024 TSH WITH FREE T4 IF INDICATED Lab Routine Moderate late onset Alzheimer's dementia without behavioral disturbance, psychotic disturbance, mood disturbance, or anxiety (HCC) Expected: 10/27/2023 (Approximate), Expires: 10/26/2024 Health Maintenance Due Date Last Done Comments [...] of this encounter Visit Diagnoses Diagnosis Moderate late onset Alzheimer's dementia without behavioral disturbance, psychotic disturbance, mood disturbance, or anxiety (HCC)- Primary Loss of weight Anemia, unspecified type Need for prophylactic vaccination and inoculation against influenza documented in this encounter Advance Directives Documents on File Type Date Recorded Patient Examination Supervisor Expl anation Power of Edge Trimmer Mechanic 04/22/2020 Kristofer Saleem (dtr-in-law) POWER OF BED LASTER & ADVANCE DIRECTIVE Healthcare Agents on File Name Relationship Healthcare Agent Relationship Communication Kristofer Saleem Adult Child Health Care Agen t (per Health Care Power of Edge Trimmer Mechanic document) [email or web address] Marilynn Saleem (dtr-in-law) Other - (no specific identity) First Alternate Health Care Agent (per Health Care Power of Edge Trimmer Mechanic document) [email or web address] Care Teams Tool Design Engineer Relationship Specialty Start Date End Date Corby Kang MD [address] [place] [address] PCP - General Family Medicine 05/20/22 documented as of this encounter
--- OUTSIDE RECORDS SUMMARY | 2023-11-11 06:06 | External Medical Summary ---
Author Name Unknown Address Unknown Organization K01:[place] [place] [address] [facility]. [facility] [address] Laboratory Report Ordering Provider Test Date Status JOHANNE MATTHEW 10/27/2023 10:46:57 Final Observation Date Value Abnormality Reference (Units ) Status SYNC LEUKOCYTES IN BLOOD BY AUTOMATED COUNT 10/27/2023 10:46:57 5.88 4.00-10.80 (K/uL) Final Segs 10/27/2023 10:46:57 64.2 40.0-75.0 (%) Final Lymphs % 10/27/2023 10:46:57 26.9 18.0-42.0 (%) Final Monos 10/27/2023 10:46:57 6.3 1.0-11.0 (%) Final Eosinophils 10/27/2023 10:46:57 1.4 0.0-6.0 (%) Final Basos 10/27/2023 10:46:57 0.9 0.0-2.0 (%) Final Immature Granulocyte, Percent 10/27/2023 10:46:57 0.3 0.0-2.0 (%) Final Absolute Segs 10/27/2023 10:46:57 3.78 1.80-7.70 (K/uL) Final Lymphs, absolute 10/27/2023 10:46:57 1.58 1.00-4.80 (K/ul) Final Monos, Abs 10/27/2023 10:46:57 0.37 0.00-1.10 (K/uL) Final Eos, Abs 10/27/2023 10:46:57 0.08 0.00-0.70 (K/uL) Final Basos, Abs 10/27/2023 10:46:57 0.05 0.00-0.20 (K/uL) Final Immature Granulocytes, Number 10/27/2023 10:46:57 0.02 0.00-0.20 (K/uL) Final Performing Location [facility] [place] [address] [facility] [address]
--- OUTSIDE RECORDS SUMMARY | 2023-11-11 06:07 | External Medical Summary | Summary of Care ---
Author Name Unknown Organization [facility] Address [address] [place] [address] Phone [phone] Care Team Providers Care Longshore Equipment Operator Name Role Phone Corby Kang MD Primary Care Provider + Encounter Details Date Type Department Care Team (Late st Contact Info) Description 06/28/2023 Telephone Family Practice [facility] [address] [place] [address] Corby Kang MD [address] [place] [id number] Allergies Active Allergy Reactions Criticality Noted Date Comments Codeine 06/09/2022 Other reaction(s): NAUSEA AND VOMITING Hydroxychloroquine Rash High 12/06/2019 Metoprolol 04/30/2021 Morphine 06/09/2022 Other reaction(s): NAUSEA AND VOMITING Oxycodone 06/21/2023 Other reaction(s): Unknown Transdermal Base Edema Other 05/20/2008 Allergic to transdermal estrogen patch documented as of this encounter (statuses as of 09/27/2023) Medications Medication Sig Dispensed Refills Start Date [...] by mouth daily with breakfast. 0 Active FISH OIL 1000 MG PO CAPS 1 capsule twice daily 0 3 Discontinu ed(Medicat ion List Clean Up) Vitamin E 200 UNITS TABS Take by mouth. daily 0 3 Discontinu ed(Medicat ion List Clean Up) folic acid 1 MG Tablet Take 1 Tablet by mouth in the morning. 0 3 Discontinu ed(Medicat ion List Clean Up) Zinc 30 MG Oral Tablet Take by mouth. 0 3 Discontinu ed(Medicat ion List Clean Up) Biotin 2500 MCG Oral Capsule Take by mouth . 0 3 Discontinu ed(Medicat ion List Clean Up) Vitamin C 500 MG Oral Tablet (Ascorbic Acid) Take 1 Tablet by mouth in the morning. 0 3 Discontinu ed(Medicat ion List Clean Up) FLUoxetine HCl 10 MG Oral Capsule (PROzac) Take 1 Capsule by mouth in the morning. Take with 40mg capsule for total dose of 50mg daily.. 30 Capsule 1 11/30/2022 3 Discontinu ed(Medicat ion List Clean Up) FLUoxetine HCl 40 MG Oral Capsule (PROzac) Take 1 Capsule by mouth in the morning. 90 Capsule 1 11/30/2022 3 Discontinu ed(Medicat ion List Clean Up) Estradiol 0.5 MG Oral Tablet (Estrace)Indication s:Menopause syndrome 1 tab by mouth every other day. 45 Tablet 0 01/05/2023 3 Discontinu ed(Medicat ion List Clean Up) Levothyroxine Sodium 25 MCG Oral Tablet (Levoxyl)Indication s:Acquired hypothyroidism Take 1 Tablet by mouth in the morning. 90 Tablet 1 01/06/2023 3 Discontinu ed(Refill) Rivaroxaban 20 MG Oral Tablet (Xarelto) Take 1 Tablet by mouth daily with dinner. 90 Tablet 2 02/08/2023 3 Discontinu ed(Refill) documented as of this encounter (statuses as of 09/27/2023) Active Problems Problem Noted Date Diagnosed Date [...] LAE.. Type 2 Workman dys. 2009 [facility] stress echo WNL 2009 colon pseudopolyp. Chronic pain of multiple joints 11/02/2022 Overview: At one pt, RA considered, MTX used, but [facility] thought was erosive. Postmenopausal atrophic vaginitis 05/03/2022 Paroxysmal atrial fibrillation 05/03/2022 Overview: Noted on preop exam. 05/09.Spontaneously cardioverted. Acquired hypothyroidism 05/03/2022 Moderate episode of recurrent major depressive d isorder 05/03/2022 documented as of this encounter (statuses as of 09/27/2023) Resolved Problems Problem Noted Date Diagnosed Date Resolved Date Encounter for examination fo r normal comparison and control in clinical research program 05/01/2018 06/23/2020 Overview: DO NOT DELETE [facility] DETECT Study: Project # [id number], House Mother: Junaid Sharp, PhD. SUMMARY: Goal: Establish test [...] contact study staff at ; after hours House Mother via the [facility] rig operator . Please contact study team before resolving/deleting from patients problem list. Study phone number: [phone]. Diagnosis changed due to Research Module. Go to [employer] for study details. Encounter for examination fo r normal comparison and control in clinical research program 05/01/2018 07/22/2022 Overview: DO NOT DELETE - [facility] Study: Project # [id number], House Mother: Tello Palacios, MS, MPH. SUMMARY: Goal: Establish [...] contact study staff at ; after hours House Mother via the [facility] rig operator . - Please contact study team before resolving/deleting from patients problem list. Study phone number: [phone]. Diagnosis changed due to Research Module. Go to [employer]apshot for study details. documented as of this encounter (statuses as of 09/27/2023) Immunizations Name Administration Dates Next Due COVID-19 mRNA, LNP-s, No Pre serve, 2-Dose Series ([employer]) 02/18/2022,08/18/2021,02/03/2021,01/13 Covid-19, Mrna, Lnp-s, Pf, B ivalent, [...] encounter Miscellaneous Notes * Telephone Encounter - Corby Kang MD - 06/28/2023 9:49 PM EDT Please call son. We discussed taking 1 pill every other day in December, but it's not clear to me she has been taking regularly. I recommend stopping it. * Telephone Encounter - Corby Kang MD - 06/28/2023 9:49 PM EDT ----- Message from Kimberly Alegria RN sent at 06/28/2023 8:28 AM EDT ----- Regarding: Estradiol 0.5 mg Good morning. Just spoke with Mica's son Kristofer and he had a question regarding one of his Mothers medication. He believed that you had stopped her Estradiol 0.5 mg but she is still taking. Shall I call him back and tell him to stop it or continue? Much thanks. Kimberly documented in this encounter Plan of Treatment Upcoming Encounters Date Type Department Care Team (Late st Contact Info) Description 09/30/2023 1:00 PM EST Telemedicine Neuropsychology, [place] [address] [place] [address] Jessica Newsome, [facility] [address] [place] [address] 10/27/2023 9:40 AM EST Office Visit Family [facility] [address] [facility] [place] [address] Corby Kang MD [address] [place] [address] 03/02/2024 9:20 AM EDT Office Visit Family Practice [facility] [address] [place] [address] Corby Kang MD [address] [place] [address] 06/22/2024 2:00 PM EDT Office Visit [facility] [address] [facility] [address] Kristel Guzman, DO [address] [facility] [place] [address] Health Maintenance Due Date Last Done Comments [...] Documents on File Type Date Recorded Patient Haulage Engine Operator Expl anation Power of Hide Grader 04/22/2020 Kristofer Saleem (dtr-in-law) POWER OF PCT & ADVANCE DIRECTIVE Healthcare Agents on File Name Relationship Healthcare Agent Relationship Communication Kristofer Saleem Adult Child Health Care Agen t (per Health Care Power of Hide Grader document) [email or web address] Marilynn Saleem (dtr-in-law) Other - (no specific identity) First Alternate Health Care Agent (per Health Care Power of Hide Grader document) [email or web address] Care Teams Longshore Equipment Operator Relationship Specialty Start Date End Date Corby Kang MD [address] [place] [address] PCP - General Family Medicine 05/20/22 documented as of this encounter
--- OUTSIDE RECORDS SUMMARY | 2023-11-11 06:07 | External Medical Summary | Summary of Care ---
Author Name Unknown Organization [facility] Address [address] [place] [address] Phone [phone] Care Team Providers Care Buggyman Name Role Phone Corby Kang MD Primary Care Provider + Encounter Details Date Type Department Care Team (Late st Contact Info) Description 06/29/2023 Telephone Ancillary [facility] [address] [place] [address] Kimberly Sagastume, KRISTY Allergies Active Allergy Reactions Criticality Noted Date Comments Codeine 06/09/2022 Other reaction(s): NAUSEA AND VOMITING Hydroxychloroquine Rash High 12/06/2019 Metoprolol 04/30/2021 Morphine 06/09/2022 Other reaction(s): NAUSEA AND VOMITING Oxycodone 06/21/2023 Other reaction(s): Unknown Transdermal Base Edema Other 05/20/2008 Allergic to transdermal estrogen patch documented as of this encounter (statuses as of 09/28/2023) Medications Medication Sig Dispensed Refills Start Date [...] by mouth daily with breakfast. 0 Active documented as of this encounter (statuses as of 09/28/2023) Active Problems Problem Noted Date Diagnosed Date History of 2019 novel coronavirus disease (COVID -19) 11/02/2022 Overview: Suspected. Lost smell. Fatigue. Dementia 11/02/2022 Overview: 02/10 son is POA. neuropsych testing ordered. Well adult exam 11/02/2022 Overview: Son Kristofer Saleem w/medical POA (he is to fax) 03/12 colon [facility] +Tubular adenoma. 05/09 Echo normal EF Mod TR mild LAE.. Type 2 Workman dys. 2009 [facility] stress echo WNL 2009 colon pseudopolyp. Chronic pain of multiple joints 11/02/2022 Overview: At one pt, RA considered, MTX used, but [facility] thought was erosive. Postmenopausal atrophic vaginitis 05/03/2022 Paroxysmal atrial fibrillation 05/03/2022 Overview: Noted on preop exam. 05/09.Spontaneously cardioverted. Acquired hypothyroidism 05/03/2022 Moderate episode of recurrent major depressive d isorder 05/03/2022 documented as of this encounter (statuses as of 09/28/2023) Resolved Problems Problem Noted Date Diagnosed Date Resolved Date Encounter for examination fo r normal comparison and control in clinical research program 05/01/2018 06/23/2020 Overview: DO NOT DELETE [facility] DETECT Study: Project # [id number], [place]: Junaid Sharp, PhD. SUMMARY: Goal: Establish test [...] contact study staff at ; after hours [employer] via the [facility] gridcap machine operator . Please contact study team before resolving/deleting from patients problem list. Study phone number: [phone]. Diagnosis changed due to Research Module. Go to Snapshot for study details. Encounter for examination fo r normal comparison and control in clinical research program 05/01/2018 07/22/2022 Overview: DO NOT DELETE - [facility] DETECT Study: Project # [id number], [place]: Tello Palacios, MS, MPH. SUMMARY: Goal: Establish [...] contact study staff at ; after hours [employer] via the [facility] hospital gridcap machine operator . - Please contact study team before resolving/deleting from patients problem list. Study phone number: [phone]. Diagnosis changed due to Research Module. Go to Snapshot for study details. documented as of this encounter (statuses as of 09/28/2023) Immunizations Name Administration Dates Next Due COVID-19 [...] encounter Miscellaneous Notes * Telephone Encounter - Kimberly Sagastume RN - 06/29/2023 8:25 AM EDT Good morning. Mica Saleem was in-patient at [facility] recently and I have been speaking to her son Kristofer regarding her medications. There is a question regarding her Prozac: Prescription is 50 mg (1 tab of 10mg, 1 tab of 40mg). It seems that Mica is taking this medication every other day which I don't believe is correct. Can you please clarify so I can let son know proper dose? Much thanks Kimberly documented in this encounter Plan of Treatment Upcoming Encounters Date Type Department Care Team (Late st Contact Info) Description 09/30/2023 1:00 PM EST Telemedicine Neuropsychology, [place] [address] [place] [address] Jessica Newsome, [facility] [address] [place] [address] 10/27/2023 9:40 AM EST Office Visit [facility] [address] [id number] Corby Kang MD [address] [id number] 03/02/2024 9:20 AM EDT Office Visit [facility] [address] [address] Corby Kang MD [address] [id number] 06/22/2024 2:00 PM EDT Office Visit Neurology [facility] [place] [address] [place] [address] Kristel Guzman, DO [address] [place] [address] Health Maintenance Due Date Last Done Comments [...] Documents on File Type Date Recorded Patient Drug Coordinator Expl anation Power of Telephone Appointment Clerk 04/22/2020 Kristofer Saleem (dtr-in-law) POWER OF TOOLING INSPECTOR & ADVANCE DIRECTIVE Healthcare Agents on File Name Relationship Healthcare Agent Relationship Communication Kristofer Saleem Adult Child Health Care Agen t (per Health Care Power of Telephone Appointment Clerk document) [email or web address] Marilynn Saleem (dtr-in-law) Other - (no specific identity) First Alternate Health Care Agent (per Health Care Power of Telephone Appointment Clerk document) [email or web address] Care Teams Buggyman Relationship Specialty Start Date End Date Corby Kang MD [address] [id number] PCP - General Family Medicine 05/20/22 documented as of this encounter
--- OUTSIDE RECORDS SUMMARY | 2023-11-11 06:07 | External Medical Summary | Continuity of Care Document ---
Author Name Unknown Organization [facility] [address] [place], [place] [address]A Address [address] [place] [id number] Encounter [facility] [id number] Date(s): 09/26/23 - 09/26/23 [facility] [address] [place] [id number] [address] Encounter Diagnosis DJD (degenerative joint disease) of knee(Discharge Diagnosis) - 09/26/23 H/O bilateral hip replacements(Discharge Diagnosis) - 09/26/23 Discharge Disposition: Home or Self Care Attending Physician: ERVIN Joseph, James Ramsey Allergies, Adverse Reactions, Alerts Substance Reaction Severity Status metoprolol zombie like feeling Active morphine Vomiting Nausea Active Allergy Not found in Search 1 Active Plaquenil rash Active 1Transdermal patch- causes rash Eye drops (unsure of name)- Logistics Vice President gretchen Medications B-Complex 50 Start: 06/03/21 10:41:00 EDT, 1 tab, PO, Daily Start Date: 06/03/21 Status: Ordered biotin Start: 06/12/21 11:08:00 EDT, 300 mcg =, PO, Daily Start Date: 06/12/21 Status: Ordered DilTIAZem (Eqv-Cardizem CD) 120 mg/24 hours oral capsule, extended release Start: 09/16/21 10:38:00 EDT, 1 cap, PO, Daily, take PRN prior to hiking Start Date: 09/16/21 Status: Ordered donepezil 10 mg oral tablet Start: 09/26/23 13:35:00 EST, 1 tab, PO, Daily Start Date: 09/26/23 Status: Ordered EPA Fish Oil Start: 06/12/21 11:08:00 EDT, 1,000 mg =, PO, Daily Start Date: 06/12/21 Status: Ordered Estrace 1 mg, PO, Daily, Refills: 0, Start: 02/24/09 14:24:59 Start Date: 02/24/09 Status: Ordered Euflexxa 10 mg/mL intra-articular solution Start: 04/04/23 14:12:00 EDT, 20 mg =, intra-articular, q7days, Disp# 12 mL, Refills: 0, 1 prefilled syringe to bilat knees 1x weekly for 3 weeks DX code M17.11, Note to Pharmacy: Please ship to doctors office; [address] [facility], [address]; [facility]... Start Date: 04/04/23 Stop Date: 04/25/23 Status: Ordered Euflexxa 10 mg/mL intra-articular solution Start: 02/05/22 19:05:00 EDT, 20 mg =, intra-articular, q7days, Disp# 6 mL, Refills: 0, 1 prefilledsyringe to left knee 1x weekly for 3 weeks DX code M17.0 Just finished injections for right knee THIS IS FOR LEFT, Note to Pharmacy: Please s... Start Date: 02/05/22 Status: Ordered FLUoxetine 40 mg oral capsule Start: 09/26/23 13:35:00 EST, 1 cap, PO, Daily Start Date: 09/26/23 Status: Ordered IRON Start: 03/17/22 10:55:00 EDT, IRON Start Date: 03/17/22 Status: Ordered latanoprost 0.005% ophthalmic solution Start: 06/26/20 13:27:00 EDT, 1 drop, right eye, Daily Start Date: 06/26/20 Status: Ordered levothyroxine Start: 03/17/22 10:56:00 EDT Start Date: 03/17/22 Status: Ordered magnesium aspartate Start: 06/12/21 11:08:00 EDT, See Instructions, 250 mg PO Daily Start Date: 06/12/21 Status: Ordered Toprol-XL Start: 03/17/22 10:56:00 EDT Start Date: 03/17/22 Status: Ordered Vitamin D3 Start: 03/20/21 11:02:00 EDT, 10 mcg =, PO, Daily Start Date: 03/20/21 Status: Ordered vitamin E Start: 11/29/19 12:42:00 EST, 1 tab, PO, Daily Start Date: 11/29/19 Status: Ordered Xarelto 20 mg oral tablet Start: 06/08/19 10:17:00 EDT, qPM Start Date: 06/08/19 Status: Ordered Zinc Start: 06/03/21 10:40:00 EDT, 1 tab, PO, Daily Start Date: 06/03/21 Status: Ordered Mental Status 09/26/23 Barriers to Learning one year None evide nt Mandatory Health Literacy Documentation Yes Health Literacy Communication Barriers N ever Primary Language Samoan Problem List Condition Confirmation Course Effective Dates Status H ealth Status Informant Arthritis Confirmed Active Arthroplasty of the hip 1 Confirmed Active Bunion 2 Confirmed Active S/P hip replacement Confirmed Active Hip osteoarthritis 3 Confirmed Active Hip osteoarthritis 4 Confirmed Active Hip pain 5 Confirmed Active H/O bilateral hip replacements Confirmed Active Tensor fascia eleazar syndrome Confirmed Active Irregular heart beats Confirmed Active Effusion of left knee Confirmed Active Knee pain Confirmed Active DJD (degenerative joint disease) of knee Confirmed Active Pneumonia Confirmed Active Revision of hip arthroplasty 6 Confirmed Active Left snapping hip Confirmed Active Sprain of third toe of left foot Confirmed Active Metatarsal stress fracture of right foot Confirmed Active Contusion Confirmed Active Tendonitis involving right hip abductors Confirmed Active 1right hip 1993 2left foot 3left 4right 5left [id number] right hip Diagnosis Diagnosis Type Effective Dates Health Status Clinical Service Informant DJD (degenerative joint disease) of knee Discharge Diagnosis 09/26/23 H/O bilateral hip replacements Discharge Diagnosis 09/26/23 Procedures Procedure Date Related Diagnosis Body Site Status Colonoscopy 1 03/05/22 Completed Left THR 02/17/12 Completed Foot surgery, left 03/09/10 Comple christie Appendectomy 1985 Completed Hysterectomy 1985 Completed Foot surgery, right Compl eted Hernia repair 2 Completed Right LEO Completed Right LEO revision Comple christie Tonsillectomy Completed 1COLO to cecum, redundant, diverticuolosiis, cecal polyp CF, TC polyps times 2 CF, [id number] Social History Social History Type Response Smoking Status Never smoked cigaret britton Sex Female Ortho Outpt Note * Mary Chery: PERFORM, MODIFY Event Display: Ortho Outpt Note Authored Date: [id number] Name:CALI CHAUDHRY Patient Number:[id number] :1945 Date of Service:09/26/2023 CHIEF COMPLAINT: Follow-up bilateral knee Euflexxa injections HPI: [id number] yearoldFemalewho presents today forfollow-up s/p bilateral knee Euflexxa injections. Patient finished a series of Euflexxa in both knees on 05/06/2023. Patient reports she is able to bend both knees relatively pain free but tends to feel pain medially on the right and none on the left. She is not currently taking any pain medication for her knees. She has no complaints regarding her hips. PHYSICAL EXAM: Focus on bilateral lower extremities: Femoral and sciatic nerve function intact. Right ROM: 0 to 130 Left ROM: 5 to 130 Hip motion supple and pain free DIAGNOSTIC REVIEW: I obtained and personally interpreted 6 total views of both knees which shows patellofemoral arthritis bilaterally . IMPRESSION: 1) Bilateral knee DJD 2) History of bilateral LEO PLAN: Continue with activities as tolerated Follow-up in 6 months with x-rays of both hips ATTESTATION: IMary, scribing for and in the presence of, Duglas Lassiter, on this date,09/26/2023 13:48:15. Electronic Signature on File Electronically Reviewed/Signed by: Mary Chery Author Signature Dt/Tm:09/26/2023 02:09 PM Electronically Reviewed/Signed by: Duglas Lassiter MD Cosigner Signature Dt/Tm: 09/26/2023 02:59 PM Interactive Media Designer for Clinical Affairs, [facility] Sherri Professor in Orthopaedics Shotgun [employer] Assembly Machine Adjuster, [facility] [place] Patient Care team information Care Team Related Persons Name: ALAINA CHAUDHRY Address: [address] [place], [place] [id number]
[2023-11-11] MEDS ORDERED: ACETAMINOPHEN 325 MG TAB PO PRN (06:49)
[2023-11-11] MEDS ORDERED: NITROGLYCERIN SL 0.4 MG/TAB TAB SL PRN (06:49)
[2023-11-11] MEDS ORDERED: METOPROLOL TARTRATE 1 MG/ML VIAL IV PRN (06:49)
--- NOTE | 2023-11-11 07:23 | XRay Report ---
XR chest 1V portable CLINICAL HISTORY: Left chest pain. COMPARISON STUDY: Chest radiograph June 21, 2023. FINDINGS: Lung volumes are normal. Lungs are clear. There is no pneumothorax or pleural effusion. Car diac size is stable. Mediastinal contours are normal. There is no evidence for pulmonary edema. IMPRESSION: No acute cardiopulmonary findings. ACT 112: Negative or not required by law. Electronically signed by: Mariusz Dubon M.D. 11/11/2023 7:22 AM
[2023-11-11 08:10] LABS: Basophils # (auto) 0.03 K/uL (0.00-0.20); Basophils % (auto) 0.5 %; Eosinophils # (auto) 0.15 K/uL (0.00-0.50); Eosinophils % (auto) 2.4 %; Hematocrit (blood only) 34.2 % (37.0-47.0); Hemoglobin 11.7 g/dl (12.0-16.0); Immature Granulocytes # (auto) 0.01 K/uL (0.01-0.20); Immature Granulocytes % (auto) 0.2 %; Lymphocytes # (auto) 1.38 K/uL (1.20-3.40); Lymphocytes % (auto) 21.8 %; Mean Corpuscular Hemoglobin 30.2 pg (25.0-34.0); Mean Corpuscular Hgb Conc 34.2 g/dL (32.0-36.0); Mean Corpuscular Volume 88.1 fL (80.0-100.0); Mean Platelet Volume 9.3 fL (9.4-12.4); Monocytes # (auto) 0.45 K/uL (0.11-0.59); Monocytes % (auto) 7.1 %; Neutrophils # (auto) 4.32 K/uL (1.40-6.50); Platelet Count 239 K/uL (130-400); RDW Coefficient of Variation 12.8 % (11.5-14.5); RDW Standard Deviation 41.1 fL (36.4-46.3); Red Blood Count 3.88 M/uL (4.20-5.40); White Blood Count 6.34 K/ul (4.8-10.8)
[2023-11-11 08:24] LABS: BUN Creatinine Ratio 17.5 (10-20); Calcium 8.9 mg/dl (8.6-10.3); Creatinine Clr Calc Pharmacy 65.5 ml/min; Est GFR (African American) 104.4 ml/min; Magnesium 1.7 mg/dl (1.7-2.4); Potassium 3.5 mmol/L (3.5-5.1)
[2023-11-11 08:31] LABS: Troponin I High Sensitivity 4.7 pg/ml (0-14)
[2023-11-11] MEDS: FLUoxetine HCL 20 MG CAP PO SCH (10:08)
[2023-11-11] MEDS: DONEPEZIL HCL 10 MG TAB PO SCH (10:08)
[2023-11-11] MEDS: FERROUS SULFATE 325 MG TAB PO SCH (10:08)
[2023-11-11] MEDS: VITAMIN B COMPLEX TAB PO SCH (10:08)
[2023-11-11] MEDS: LEVOTHYROXINE SODIUM 25 MCG TABLET PO SCH (10:08)
[2023-11-11] MEDS: MAGNESIUM OXIDE 400 MG TAB PO SCH (10:08)
[2023-11-11] MEDS: METOPROLOL SUCC 25MG EXT REL TAB PO SCH (10:09)
[2023-11-11] MEDS: CHOLECALCIFEROL 1,000 UNITS 25 MCG TAB PO SCH ×2 (10:09→19:46)
--- NOTE | 2023-11-11 11:59 | Hospitalist Progress Note ---
Date of Service November 11, 2023 Assessment & Plan (1) Atrial fibrillation, rapid: Plan: 78-year-old female with past medical history significant for hypothyroidism, paroxysmal atrial fibrillation, chronic pain of multiple joints,, late onset Alzheimer's dementia with mood disturbance, depression, history of COVID, who lives alone at home and ambulates without support comes because she was feeling dizzy today and had some chest discomfort and found to be in rapid A-fib. Atrial fibrillation with RVR Patient presented from home with dizziness and chest discomfort. EKG on admission reviewed; showed atrial fibrillation with ventricular rate of 109. High sensitive troponin negative. Continue home metoprolol succinate. Cardiology consulted; appreciate recommendation Continue home Xarelto Close monitor on telemetry floor Hypothyroidism On Synthyroid TSH within normal limits Alzheimer's dementia Continue home donezepil Monitor for delirium Depression On fluoxetine DVT prophylaxis On Xarelto Disposition: Admitted to the hospital due to atrial fibrillation with RVR. Cardiology consulted for comanagement. Discussed with patient son over the phone regarding disposition. Assisted living facility being explored given that patient has increasing dementia and has increasing inability to take care of her. PT OT has been ordered. Time spent evaluating patient, direct bedside care, chart review, placing orders, interpretation of diagnostic studies, discussion with consultants, patient, and family members, as well as other required patient management activities is 50 minutes Please note the above document was generated using voice recognition software. It may contain grammatical, syntax or spelling errors. Any formal questions or concerns about the content, text or information contained within the body of this dictation should be directly addressed to the provider for clarification Admission and Anticipated Discharge Date Admission Date: November 11, 2023 Subjective Patient seen and examined at bedside. She denies fever, chills, chest pain or palpitations. Telemetry shows atrial fibrillation with ventricular rate of 90s to 100. Review of Systems Review of Systems: All systems reviewed & are unremarkable except as noted in Subjective Physical Exam Physical Exam: General- Not in distress Lungs- clear to auscultation no wheezing or crackles. Heart- irregular rhythm;tachycardia, no murmur, no gallop. Abdomen- normal bowel sounds, soft, nontender, no distension. Extremities- no pretibial edema, no erythema seen. Neuro- alert, oriented x 3; PERRL, no facial palsy; no dysarthria; obeys simple commands, moves extremities. Skin- warm & dry Results & Data Results & Data Vital Signs (Past 12 Hours) Vital Signs Temp Pulse Pulse Resp BP BP BP 11/11/23 09:53 57 L 127/70 11/11/23 07:02 36.6 C 85 18 151/104 H 11/11/23 06:48 36.7 C 92 H 16 142/82 H 11/11/23 05:46 90 11/11/23 05:00 100 H 14 136/98 11/11/23 04:00 101 H 136/81 11/11/23 04:00 92 H 16 136/81 11/11/23 03:45 98 H 146/101 H 11/11/23 03:15 97 H 144/87 H 11/11/23 03:00 84 146/102 H 11/11/23 02:39 116 H 22 129/88 11/11/23 02:27 112 H 142/98 H 11/11/23 01:59 36.5 C 115 H 20 155/99 H 11/11/23 01:54 118 H Pulse Ox O2 Del Method 11/11/23 09:53 97 Room Air 11/11/23 07:02 97 Room Air 11/11/23 06:48 96 Room Air 11/11/23 05:46 11/11/23 05:00 96 Room Air 11/11/23 04:00 11/11/23 04:00 97 Room Air 11/11/23 03:45 11/11/23 03:15 11/11/23 03:00 11/11/23 02:39 95 Room Air 11/11/23 02:27 11/11/23 01:59 100 Room Air 11/11/23 01:54 Laboratory Results Laboratory Results WBC 6.34 K/ul (4.8-10.8) 11/11/23 07:22 RBC 3.88 M/uL (4.20-5.40) L 11/11/23 07:22 Hgb 11.7 g/dl (12.0-16.0) L 11/11/23 07:22 Hct 34.2 % (37.0-47.0) L 11/11/23 07:22 MCV 88.1 fL (80.0-100.0) 11/11/23 07:22 MCH 30.2 pg (25.0-34.0) 11/11/23 07: MCHC 34.2 g/dL (32.0-36.0) 11/11/23 07: RDW Std Deviation 41.1 fL (36.4-46.3) 11/11/23 07: RDW Coeff of Amena 12.8 % (11.5-14.5) 11/11/23 07: Plt Count 239 K/uL (130-400) 11/11/23 07: MPV 9.3 fL (9.4-12.4) L 11/11/23 07: Immature Gran % (Auto) 0.2 % 11/11/23 07: Neut % (Auto) 68.0 % 11/11/23 07: Lymph % (Auto) 21.8 % 11/11/23 07: Powell % (Auto) 7.1 % 11/11/23 07: Eos % (Auto) 2.4 % 11/11/23 07: Baso % (Auto) 0.5 % 11/11/23 07: Neut # (Auto) 4.32 K/uL (1.40-6.50) 11/11/23 07: Lymph # (Auto) 1.38 K/uL (1.20-3.40) 11/11/23 07: Powell # (Auto) 0.45 K/uL (0.11-0.59) 11/11/23 07: Eos # (Auto) 0.15 K/uL (0.00-0.50) 11/11/23 07: Baso # (Auto) 0.03 K/uL (0.00-0.20) 11/11/23 07: Immature Gran # (Auto) 0.01 K/uL (0.01-0.20) 11/11/23 07:22 Sodium 136 mmol/L (136-145) 11/11/23 07:22 Potassium 3.5 mmol/L (3.5-5.1) 11/11/23 07: Chloride 104 mmol/L (98-107) 11/11/23 07:22 Carbon Dioxide 26 mmol/L (21-32) 11/11/23 07:22 Anion Gap 6 (3-11) 11/11/23 07:22 BUN 10 mg/dl (6-23) 11/11/23 07:22 Creatinine 0.57 mg/dl (0.6-1.2) L 11/11/23 07:22 Est Cr Clr Drug Dosing 65.5 ml/min 11/11/23 07:22 Est GFR ( Amer) 104.4 ml/min 11/11/23 07:22 Est GFR (Non-Af Amer) 90.0 ml/min 11/11/23 07:22 BUN/Creatinine Ratio 17.5 (10-20) 11/11/23 07:22 Glucose 98 mg/dl (70-99(Fasting)) 11/11/23 07:22 POC Glucose 96 mg/dl (70-99) 11/11/23 11:12 Calcium 8.9 mg/dl (8.6-10.3) 11/11/23 07:22 Magnesium 1.7 mg/dl (1.7-2.4) 11/11/23 07:22 Total Bilirubin 0.7 mg/dl (0.2-1.0) 11/11/23 02:00 Direct Bilirubin 0.1 mg/dl (0-0.2) 11/11/23 02:00 AST 26 U/L (13-39) 11/11/23 02:00 ALT 16 U/L (7-52) 11/11/23 02:00 Alkaline Phosphatase 66 U/L (34-104) 11/11/23 02:00 Troponin I High Sens 4.7 pg/ml (0-14) 11/11/23 07:22 Total Protein 7.0 gm/dl (6.0-8.3) 11/11/23 02:00 Albumin 4.0 gm/dl (3.4-5.0) 11/11/23 02:00 Lipase 46 U/L (11-82) 11/11/23 02:00 TSH 4.446 uIu/ml (0.300-4.500) 11/11/23 07:22 Urine Color Yellow 11/11/23 03:03 Urine Appearance Clear (Clear) 11/11/23 03:03 Urine pH 8.0 (4.5-7.5) H 11/11/23 03:03 Ur Specific Loyal 1.008 (1.000-1.030) 11/11/23 03:03 Urine Protein Negative (Negative) 11/11/23 03:03 Urine Glucose (UA) Negative (Negative) 11/11/23 03:03 Urine Ketones Trace (Negative) H 11/11/23 03:03 Urine Blood Trace (Negative) H 11/11/23 03:03 Urine Nitrite Negative (Negative) 11/11/23 03:03 Urine Bilirubin Negative (Negative) 11/11/23 03:03 Urine Urobilinogen Negative (Negative) 11/11/23 03:03 Ur Leukocyte Esterase Negative (Negative) 11/11/23 03:03 Urine WBC (Auto) 0 /hpf (0-5) 11/11/23 03:03 Urine RBC (Auto) 0-4 /hpf (0-4) 11/11/23 03:03 U Hyaline Cast (Auto) 0 /lpf (0-5) 11/11/23 03:03 U Epithel Cells (Auto) 0-5 /lpf (0-5) 11/11/23 03:03 Urine Bacteria (Auto) Negative (Negative) 11/11/23 03:03 SARS-CoV-2 (PCR) NEGATIVE (Negative) 11/11/23 02:37 Influenza Type A (PCR) Negative (Neg) 11/11/23 02:37 Influenza Type B (PCR) Negative (Neg) 11/11/23 02:37 RSV (RT-PCR) Negative (Neg) 11/11/23 02:37 Impressions Chest X-Ray 11/11/23 02:15 XR chest 1V portable CLINICAL HISTORY: Left chest pain. COMPARISON STUDY: Chest radiograph June 21, 2023. FINDINGS: Lung volumes are normal. Lungs are clear. There is no pneumothorax or pleural effusion. Cardiac size is stable. Mediastinal contours are normal. There is no evidence for pulmonary edema. IMPRESSION: No acute cardiopulmonary findings. ACT 112: Negative or not required by law. Electronically signed by: Mariusz Dubon M.D. 11/11/2023 7:22 AM
--- NOTE | 2023-11-11 14:15 | Cardiology Consultation ---
Date of Consultation November 11, 2023 Assessment & Plan (1) Paroxysmal atrial fibrillation: (2) Chest pain: (3) Dizziness: (4) Tricuspid regurgitation: (5) Mitral regurgitation: Plan ASSESSMENT/PLAN: 1. Paroxysmal atrial fibrillation: Difficult to know if she is symptomatic given her lack of memory and unable to give details of her presentation. Some outpatient cardiology notes in the past state that she was asymptomatic at times in the past while in A-fib. If we can determine that she is symptomatic while in A-fib, would consider antiarrhythmic therapy. Otherwise, continue low-dose beta-anibal as she is mildly bradycardic while in sinus rhythm. Continue ant icoagulation for stroke risk reduction. She has as needed diltiazem available in the outpatient setting. Her son states that she is not capable of managing this given her dementia. Can discontinue diltiazem prn in the outpatient setting. 2. Dizziness: There is a record that she has had orthostatic hypotension. Given that she apparently complained of dizziness prior to onset and her son states that she has positional lightheadedness, recommend orthostatic vitals while here. P.o. intake seems to be an issue as an outpatient. 3. Mitral and tricuspid regurgitation: Nonsevere on preliminary echo review. Can be managed/followed as an outpatient with her primary bindery leadperson. 4. Chest pain: Difficult to know etiology as she was unable to recall having chest pain. If this becomes a regular occurrence, especially while in sinus rhythm, could consider noninvasive ischemic evaluation if deemed appropriate at that time. High-sensitivity troponin negative here. No further evaluation in this regard at this time. 5. Disposition: Plan of care communicated with primary hospitalist, Dr. Doan. Follow-up with her primary bindery leadperson, Dr. Wood, in the outpatient setting. Please call on-call bindery leadperson with any further questions or concerns while she is hospitalized. Thank you for allowing me to participate in the care of your patient. Please call for any other questions or concerns. Sincerely, Clint Marte M.D. History of Present Illness Reason for Consultation: afib and chest pain Requesting Physician: Dr. Snow Attending Physician: Isak Doan MD History of Present Illness Ms. Saleem is a very pleasant 78-year-old female with a history significant for paroxysmal atrial fibrillation, Alzheimer's dementia, and hypothyroidism. Her primary bindery leadperson is Dr. Wood. She has a history of paroxysmal atrial fibrillation and according to older records from 2019, she was not symptomatic when A-fib was initially diagnosed. Unfortunately, she is a poor historian given her poor memory. She apparently had been feeling dizziness and some chest discomfort, prompting her emergency room visit. When asked about this today, she was unable to give any details about chest discomfort. She denied any chest pains today, palpitations, edema, cough. She apparently has baseline mild shortness of breath per her report. According to records, she has a history of orthostatic hypotension and apparently has lost 15 pounds as she has not been eating/drinking much. Her son, Murali, was contacted via telephone and states that with her dementia, she has not been eating well. They are trying to have her placed in a home so that she has assistance. Murali states that she has had lightheadedness when getting up from a seated position and with exertion. Her memory has significantly worsened over the past year. There has not been any reported bleeding. When she first arrived in the emergency department, her first charted heart rate was 118 bpm. Her son also has concerns about as needed diltiazem which is part of her outpatient regimen. He states that with her memory, he does not believe that she can reliably determine when she should take the medication and then remember to do so. Review of systems: As above. Review of systems otherwise negative/unremarkable or unobtainable due to patient's poor memory. Family history: No known premature CAD. Social history: She denies tobacco, alcohol, drug abuse. She lives alone. She has 1 son, Murali. She was alone in her hospital room. Allergies Allergy/AdvReac Type Severity Reaction Status Date / Time hydroxychloroquine Allergy Severe rash, hives Verified 11/11/23 02:28 [From Plaquenil] adhesive Allergy Intermediate SWELLING Verified 11/11/23 02:28 AND REDNESS LOCALLY metoprolol Allergy Unknown ON [facility] Verified 11/11/23 02:28 LIST oxycodone Allergy Unknown ON [facility] Verified 11/11/23 02:28 LIST codeine AdvReac Intermediate NAUSEA AND Verified 11/11/23 02:28 VOMITING morphine AdvReac Intermediate NAUSEA AND Verified 11/11/23 02:28 VOMITING Home Medications Medication Instructions Recorded Confirmed Type cholecalciferol (vitamin D3) 25 1,000 unit PO BID 04/27/19 11/11/23 History mcg (1,000 unit) capsule (Vitamin D3) rivaroxaban 20 mg tablet (Xarelto) 20 mg PO DAILY #30 tabs 04/28/19 11/11/23 Rx latanoprost 0.005 % eye drops 1 drops ophthalmic (eye) QPM 10/09/19 11/11/23 History magnesium 250 mg tablet 250 mg PO DAILY 02/25/21 11/11/23 History diltiazem HCl 120 mg capsule,24 120 mg PO DAILY PRN as needed for 11/25/21 11/11/23 Rx hr,extended release exercise #30 caps ferrous sulfate 325 mg (65 mg 325 mg PO DAILY 06/09/22 11/11/23 History iron) tablet (Feosol) levothyroxine 25 mcg tablet 25 mcg PO DAILY 06/09/22 11/11/23 History vitamin B complex 1 tab PO DAILY 06/21/23 11/11/23 History fluoxetine 40 mg capsule 40 mg PO DAILY 06/22/23 11/11/23 History metoprolol succinate 25 mg 25 mg PO DAILY #90 tabs 09/08/23 11/11/23 Rx tablet,extended release 24 hr donepezil 10 mg tablet 10 mg PO DAILY 11/11/23 11/11/23 History Patient History Medical History (Updated 11/11/23 @ 14:45 by Jagdish Marte MD) Paroxysmal atrial fibrillation Osteoarthritis Menopause Breast cyst Mitral regurgitation Arthritis Surgical History History of tubal ligation S/P abdominal hysterectomy and left salpingo-oophorectomy History of tonsillectomy and adenoidectomy H/O hernia repair S/P dilatation and curettage History of appendectomy Hx of cataract surgery History of total hip replacement Family History Father Myocardial infarction Congestive heart failure Pure hypercholesterolemia Brother Exertional angina Mother Hypotension Social History Smoking Status: Unknown if ever smoked Do You Dip or Chew Tobacco: No; Hx Alcohol Use: No Hx Substance Use: No Preferred Language: Czech Communication Ability: Effective Sign Builder Required: No Beliefs That Will Affect Care: None marital status: Current Living Situation: Alone Current Living Situation Comment: House current occupational status: employed Feels Safe at Home: Yes Assistive Devices: None Physical Exam Physical Exam: Gen.: No acute distress. Alert. HEENT: Anicteric sclera. Neck: No JVD. No bruits. Normal carotid upstrokes bilaterally. Cardiac: No ventricular heave. Regular. Normal S1-S2. No murmurs, rubs, or gallops. Pulmonary: Clear to auscultation bilaterally without wheezes, rales, or rhonchi. Abdomen: Soft, nontender, nondistended, with normoactive bowel sounds. No bruits noted. Extremities: 2+ radial pulses bilaterally. 2+ posterior tibialis pulses bilaterally. No edema or cyanosis. Results & Data Vital Signs (Past 12 Hours) Vital Signs Temp Pulse Pulse Resp BP BP BP 11/11/23 12:29 36.9 C 56 L 18 126/67 11/11/23 09:53 57 L 127/70 11/11/23 09:30 11/11/23 07:02 36.6 C 85 18 151/104 H 11/11/23 06:48 36.7 C 92 H 16 142/82 H 11/11/23 05:46 90 11/11/23 05:00 100 H 14 136/98 11/11/23 04:00 101 H 136/81 11/11/23 04:00 92 H 16 136/81 11/11/23 03:45 98 H 146/101 H 11/11/23 03:15 97 H 144/87 H 11/11/23 03:00 84 146/102 H 11/11/23 02:39 116 H 22 129/88 11/11/23 02:27 112 H 142/98 H Pulse Ox O2 Del Method 11/11/23 12:29 96 Room Air 11/11/23 09:53 97 Room Air 11/11/23 09:30 Room Air 11/11/23 07:02 97 Room Air 11/11/23 06:48 96 Room Air 11/11/23 05:46 11/11/23 05:00 96 Room Air 11/11/23 04:00 11/11/23 04:00 97 Room Air 11/11/23 03:45 11/11/23 03:15 11/11/23 03:00 11/11/23 02:39 95 Room Air 11/11/23 02:27 Laboratory Results Laboratory Results - last 24 hr 11/11/23 11/11/23 11/11/23 02:00 02:37 03:03 WBC 7.33 RBC 3.96 L Hgb 12.1 Hct 34.9 L MCV 88.1 MCH 30.6 MCHC 34.7 RDW Std Deviation 41.0 RDW Coeff of Amena 12.7 Plt Count 245 MPV 9.7 Immature Gran % (Auto) 0.3 Neut % (Auto) 70.1 Lymph % (Auto) 19.1 Boyd % (Auto) 7.6 Eos % (Auto) 2.5 Baso % (Auto) 0.4 Neut # (Auto) 5.14 Lymph # (Auto) 1.40 Boyd # (Auto) 0.56 Eos # (Auto) 0.18 Baso # (Auto) 0.03 Immature Gran # (Auto) 0.02 Sodium 135 L Potassium 3.5 Chloride 101 Carbon Dioxide 24 Anion Gap 10 BUN 12 Creatinine 0.67 Est Cr Clr Drug Dosing 55.7 Est GFR ( Amer) 99.0 Est GFR (Non-Af Amer) 85.4 BUN/Creatinine Ratio 17.9 Glucose 118 H POC Glucose Calcium 9.3 Magnesium 1.8 Total Bilirubin 0.7 Direct Bilirubin 0.1 AST 26 ALT 16 Alkaline Phosphatase 66 Troponin I High Sens 4.3 Total Protein 7.0 Albumin 4.0 Lipase 46 TSH Urine Color Yellow Urine Appearance Clear Urine pH 8.0 H Ur Specific [place] 1.008 Urine Protein Negative Urine Glucose (UA) Negative Urine Ketones Trace H Urine Blood Trace H Urine Nitrite Negative Urine Bilirubin Negative Urine Urobilinogen Negative Ur Leukocyte Esterase Negative Urine WBC (Auto) 0 Urine RBC (Auto) 0-4 U Hyaline Cast (Auto) 0 U Epithel Cells (Auto) 0-5 Urine Bacteria (Auto) Negative SARS-CoV-2 (PCR) NEGATIVE Influenza Type A (PCR) Negative Influenza Type B (PCR) Negative RSV (RT-PCR) Negative 11/11/23 11/11/23 11/11/23 07:08 07:22 11:12 WBC 6.34 RBC 3.88 L Hgb 11.7 L Hct 34.2 L MCV 88.1 MCH 30.2 MCHC 34.2 RDW Std Deviation 41.1 RDW Coeff of Amena 12.8 Plt Count 239 MPV 9.3 L Immature Gran % (Auto) 0.2 Neut % (Auto) 68.0 Lymph % (Auto) 21.8 Boyd % (Auto) 7.1 Eos % (Auto) 2.4 Baso % (Auto) 0.5 Neut # (Auto) 4.32 Lymph # (Auto) 1.38 Boyd # (Auto) 0.45 Eos # (Auto) 0.15 Baso # (Auto) 0.03 Immature Gran # (Auto) 0.01 Sodium 136 Potassium 3.5 Chloride 104 Carbon Dioxide 26 Anion Gap 6 BUN 10 Creatinine 0.57 L Est Cr Clr Drug Dosing 65.5 Est GFR ( Amer) 104.4 Est GFR (Non-Af Amer) 90.0 BUN/Creatinine Ratio 17.5 Glucose 98 POC Glucose 107 H 96 Calcium 8.9 Magnesium 1.7 Total Bilirubin Direct Bilirubin AST ALT Alkaline Phosphatase Troponin I High Sens 4.7 Total Protein Albumin Lipase TSH 4.446 Urine Color Urine Appearance Urine pH Ur Specific [place] Urine Protein Urine Glucose (UA) Urine Ketones Urine Blood Urine Nitrite Urine Bilirubin Urine Urobilinogen Ur Leukocyte Esterase Urine WBC (Auto) Urine RBC (Auto) U Hyaline Cast (Auto) U Epithel Cells (Auto) Urine Bacteria (Auto) SARS-CoV-2 (PCR) Influenza Type A (PCR) Influenza Type B (PCR) RSV (RT-PCR) 11/11/23 12:35 WBC RBC Hgb Hct MCV MCH MCHC RDW Std Deviation RDW Coeff of Amena Plt Count MPV Immature Gran % (Auto) Neut % (Auto) Lymph % (Auto) Boyd % (Auto) Eos % (Auto) Baso % (Auto) Neut # (Auto) Lymph # (Auto) Boyd # (Auto) Eos # (Auto) Baso # (Auto) Immature Gran # (Auto) Sodium Potassium Chloride Carbon Dioxide Anion Gap BUN Creatinine Est Cr Clr Drug Dosing Est GFR ( Amer) Est GFR (Non-Af Amer) BUN/Creatinine Ratio Glucose POC Glucose Calcium Magnesium Total Bilirubin Direct Bilirubin AST ALT Alkaline Phosphatase Troponin I High Sens 4.6 Total Protein Albumin Lipase TSH Urine Color Urine Appearance Urine pH Ur Specific [place] Urine Protein Urine Glucose (UA) Urine Ketones Urine Blood Urine Nitrite Urine Bilirubin Urine Urobilinogen Ur Leukocyte Esterase Urine WBC (Auto) Urine RBC (Auto) U Hyaline Cast (Auto) U Epithel Cells (Auto) Urine Bacteria (Auto) SARS-CoV-2 (PCR) Influenza Type A (PCR) Influenza Type B (PCR) RSV (RT-PCR) Diagnostic Findings Telemetry personally reviewed: Initially, atrial fibrillation with mild rapid ventricular response but then converted to sinus rhythm on 11/11/2023 at 9:25 AM. No significant pauses. History and physical report as well as outpatient cardiology notes reviewed. ECG personally reviewed: 11/11/2023 at 1:56 AM: A-fib at [address] abnormality. Labs personally reviewed and notable for normal high-sensitivity troponin, stable renal function, normal transaminase levels, mild anemia. Chest x-ray report 11/11/2023 reviewed: No acute cardiopulmonary findings per radiology. Preliminary echo report from 11/11/2023: Normal LV systolic function. Moderate tricuspid regurgitation. Mild mitral regurgitation. Medications Administered Current Inpatient Medications Acetaminophen (Acetaminophen 325 Mg Tab) 650 mg PO Q4H PRN PRN Reason: Pain or Fever Stop: 12/11/23 06:48 Donepezil HCl (Donepezil Hcl 10 Mg Tab) 10 mg PO DAILY CODI Stop: 12/11/23 08:59 Last Admin: 11/11/23 10:08 Dose: 10 mg Ferrous Sulfate (Ferrous Sulfate 325 Mg Tab) 325 mg PO DAILY CODI Stop: 12/11/23 08:59 Last Admin: 11/11/23 10:08 Dose: 325 mg Fluoxetine HCl (Fluoxetine Hcl 20 Mg Cap) 40 mg PO DAILY CODI Stop: 12/11/23 08:59 Last Admin: 11/11/23 10:08 Dose: 40 mg Latanoprost (Latanoprost 0.005% Op Soln 2.5 Ml Btl) 1 drops OP QPM CODI Stop: 12/11/23 20:59 Levothyroxine Sodium (Levothyroxine Sodium 25 Mcg Tablet) 25 mcg PO DAILYBB CODI Stop: 12/11/23 06:59 Last Admin: 11/11/23 10:08 Dose: 25 mcg Magnesium Oxide (Magnesium Oxide 400 Mg Tab) 400 mg PO DAILY CODI Stop: 12/11/23 08:59 Last Admin: 11/11/23 10:08 Dose: 400 mg Metoprolol Succinate (Metoprolol Succ 25mg Ext Rel Tab) 25 mg PO DAILY [facility] Stop: 12/11/23 08:59 Last Admin: 11/11/23 10:09 Dose: 25 mg Metoprolol Tartrate (Metoprolol Tartrate 1 Mg/Ml Vial) 5 mg IV Q6 PRN PRN Reason: Tachycardia Stop: 12/11/23 06:48 Nitroglycerin (Nitroglycerin Sl 0.4 Mg/Tab Tab) 0.4 mg SL Q5M PRN PRN Reason: Chest Pain Stop: 12/11/23 06:48 Rivaroxaban (Rivaroxaban 20 Mg Tab) 20 mg PO QDD [facility] Stop: 12/11/23 16:29 Vitamin B Complex (Vitamin B Complex Tab) 1 tab PO DAILY [facility] Stop: 12/11/23 08:59 Last Admin: 11/11/23 10:08 Dose: 1 tab Vitamin D (Cholecalciferol 1,000 Units 25 Mcg Tab) 1,000 units PO BID [facility] Stop: 12/11/23 08:59 Last Admin: 11/11/23 10:09 Dose: 1,000 units PG Care Time/CCT Total # of Minutes Spent Total Time Spent with Patient: Total time spent is greater than 50% in coordination of care (as documented) at patient's floor/unit and/or counseling patient: Coding Level of Care Code 80376 INT INP/OBS CARE 2/55MIN Diagnoses Paroxysmal atrial fibrillation I48.0 Chest pain R07.9 Dizziness R42 Tricuspid regurgitation I07.1 Mitral regurgitation I34.0
--- NOTE | 2023-11-11 16:13 | XCELERA ---
[id number] [id number]
[2023-11-11] MEDS: RIVAROXABAN 20 MG TAB PO SCH (16:40)
[2023-11-11] MEDS ORDERED: LATANOPROST 0.005% OP SOLN 2.5 ML BTL OP SCH (21:00)
[2023-11-12] MEDS: LEVOTHYROXINE SODIUM 25 MCG TABLET PO SCH (05:47)
--- NOTE | 2023-11-12 06:28 | Electrocardiogram Report ---
Test Reason : Blood Pressure : / mmHG Vent. Rate : 109 BPM Atrial Rate : 000 BPM P-R Int : 000 ms QRS Dur : 088 ms QT Int : 352 ms P-R-T Axes : 000 074 -31 degrees QTc Int : 474 ms Atrial fibrillation with rapid ventricular response Nonspecific ST and T wave abnormality Abnormal ECG When compared with ECG of 25-JUN-2023 05:59, Atrial fibrillation has replaced Sinus rhythm Vent. rate has increased BY [address] now depressed in Inferior leads ST now depressed in Anterolateral leads QT has lengthened Confirmed by Jagdish Marte ([id number]) on 11/12/2023 6:27:50 AM Referred By: REFERRED SELF Confirmed By:Jagdish Marte
[2023-11-12 08:40] LABS: Basophils # (auto) 0.03 K/uL (0.00-0.20); Basophils % (auto) 0.5 %; Eosinophils # (auto) 0.13 K/uL (0.00-0.50); Eosinophils % (auto) 2.3 %; Hemoglobin 11.7 g/dl (12.0-16.0); Immature Granulocytes # (auto) 0.01 K/uL (0.01-0.20); Immature Granulocytes % (auto) 0.2 %; Lymphocytes # (auto) 1.35 K/uL (1.20-3.40); Lymphocytes % (auto) 24.2 %; Mean Corpuscular Hemoglobin 30.6 pg (25.0-34.0); Mean Corpuscular Hgb Conc 35.5 g/dL (32.0-36.0); Mean Corpuscular Volume 86.4 fL (80.0-100.0); Mean Platelet Volume 9.1 fL (9.4-12.4); Monocytes % (auto) 7.2 %; Neutrophils # (auto) 3.66 K/uL (1.40-6.50); Neutrophils % (auto) 65.6 %; Platelet Count 229 K/uL (130-400); RDW Coefficient of Variation 12.7 % (11.5-14.5); RDW Standard Deviation 39.9 fL (36.4-46.3); Red Blood Count 3.82 M/uL (4.20-5.40); White Blood Count 5.58 K/ul (4.8-10.8)
[2023-11-12 08:57] LABS: BUN Creatinine Ratio 16.1 (10-20); Calcium 9.1 mg/dl (8.6-10.3); Creatinine Clr Calc Pharmacy 60.7 ml/min; Est GFR (African American) 101.5 ml/min; Est GFR (Non-African American) 87.6 ml/min; Potassium 3.6 mmol/L (3.5-5.1)
[2023-11-12] MEDS: FLUoxetine HCL 20 MG CAP PO SCH (10:07)
[2023-11-12] MEDS: METOPROLOL SUCC 25MG EXT REL TAB PO SCH (10:07)
[2023-11-12] MEDS: FERROUS SULFATE 325 MG TAB PO SCH (10:07)
[2023-11-12] MEDS: MAGNESIUM OXIDE 400 MG TAB PO SCH (10:07)
[2023-11-12] MEDS: DONEPEZIL HCL 10 MG TAB PO SCH (10:07)
[2023-11-12] MEDS: CHOLECALCIFEROL 1,000 UNITS 25 MCG TAB PO SCH (10:07)
[2023-11-12] MEDS: VITAMIN B COMPLEX TAB PO SCH (10:08)
--- NOTE | 2023-11-12 13:18 | Hospitalist Progress Note ---
Date of Service November 12, 2023 Assessment & Plan (1) Atrial fibrillation, rapid: Plan: 78-year-old female with past medical history significant for hypothyroidism, paroxysmal atrial fibrillation, chronic pain of multiple joints,, late onset Alzheimer's dementia with mood disturbance, depression, history of COVID, who lives alone at home and ambulates without support comes because she was feeling dizzy today and had some chest discomfort and found to be in rapid A-fib. Atrial fibrillation with RVR Patient presented from home with dizziness and chest discomfort. EKG on admission reviewed; showed atrial fibrillation with ventricular rate of 109. High sensitive troponin negative. Continue home metoprolol succinate. Cardiology consulted; appreciate recommendation Continue home Xarelto Close monitor on telemetry floor Hypothyroidism On Synthyroid TSH within normal limits Alzheimer's dementia Continue home donezepil Monitor for delirium Depression On fluoxetine DVT prophylaxis On Xarelto Disposition: Admitted to the hospital due to atrial fibrillation with RVR. Cardiology consulted for comanagement. Discussed with patient son over the phone regarding disposition. Assisted living facility being explored given that patient has increasing dementia and has increasing inability to take care of her. PT OT has been ordered. Time spent evaluating patient, direct bedside care, chart review, placing orders, interpretation of diagnostic studies, discussion with consultants, patient, and family members, as well as other required patient management activities is 50 minutes Please note the above document was generated using voice recognition software. It may contain grammatical, syntax or spelling errors. Any formal questions or concerns about the content, text or information contained within the body of this dictation should be directly addressed to the provider for clarification Admission and Anticipated Discharge Date Admission Date: November 11, 2023 Physical Exam Physical Exam: General- Not in distress Lungs- clear to auscultation no wheezing or crackles. Heart- irregular rhythm;tachycardia, no murmur, no gallop. Abdomen- normal bowel sounds, soft, nontender, no distension. Extremities- no pretibial edema, no erythema seen. Neuro- alert, oriented x 3; PERRL, no facial palsy; no dysarthria; obeys simple commands, moves extremities. Skin- warm & dry Results & Data Results & Data Vital Signs (Past 12 Hours) Vital Signs Temp Pulse Pulse Resp BP Pulse Ox O2 Del Method 11/12/23 11:32 36.6 C 61 18 126/84 96 Room Air 11/12/23 08:30 Room Air 11/12/23 07:52 36.4 C L 56 L 16 152/77 H 97 Room Air 11/12/23 07:51 56 L 16 145/84 H 95 Room Air 11/12/23 07:50 57 L 16 150/82 H 95 Room Air 11/12/23 07:36 50 L 11/12/23 07:06 36.5 C 59 L 18 160/84 H 97 Room Air
--- NOTE | 2023-11-12 13:41 | Discharge Summary ---
Date of Service November 12, 2023 Admission HPI Per Admitting Provider 78-year-old female with past medical history significant for hypothyroidism, paroxysmal atrial fibrillation, chronic pain of multiple joints,, late onset Alzheimer's dementia with mood disturbance, depression, history of COVID, who lives alone at home and ambulates without support comes because she was feeling dizzy today and had some chest discomfort and found to be in rapid A-fib. Patient states was feeling dizzy and she was lying down but her dizziness was not getting better and she felt to tell someone and seems called EMS and was brought in here . Patient seems currently not concerned about chest pain. But on repeat questioning she states she has some chest discomfort in the upper chest. Denies shortness of breath. Denies headache. No nausea. Has some abdominal discomfort. Has back pain. Normal bowel and bladder movements. Afebrile. Patient states she cooks her own food. She is not allowed to drive. States she lost 15 pounds. She is drinking protein drinks. She states it is very depressing to live alone and she is trying to look to going to [facility]. She states she is on waiting list. Her son lives about 4 hours away. States he comes and visits her. Patient could tell her name. Could tell her date of . Knows that she is in the hospital. Knows City name and county name. Could tell current month and year. 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 As mentioned above. Past surgical history. Colonoscopy. Foot surgery. Right total hip replacement. Right revision of total hip replacement. Left total hip replace ment. Social history. Currently lives alone. No smoking. No alcohol use. No drug use. Family history. suicide, 1 son suicide, 1 son alive. Admission Exam Per Admitting Provider General- Not in distress Head- atraumatic Eyes- PERRL. ENT- oropharynx clear Neck- supple, no JVD. Lungs- clear to auscultation no wheezing or crackles. Heart- irregular rhythm;tachycardia, no murmur, no gallop. Abdomen- normal bowel sounds, soft, nontender, no distension. Extremities- no pretibial edema, no erythema seen. Neuro- alert, oriented x 3; PERRL, no facial palsy; no dysarthria; obeys simple commands, moves extremities. Skin- warm & dry Principal Diagnosis Atrial fibrillation with RVR Discharge Exam General- Not in distress Lungs- clear to auscultation no wheezing or crackles. Heart-regular;, no murmur, no gallop. Abdomen- normal bowel sounds, soft, nontender, no distension. Extremities- no pretibial edema, no erythema seen. Neuro- alert, oriented x 3; PERRL, no facial palsy; no dysarthria; obeys simple commands, moves extremities. Skin- warm & dry Discharge Data Allergies Allergy/AdvReac Type Severity Reaction Status Date / Time hydroxychloroquine Allergy Severe rash, hives Verified 11/11/23 02:28 [From Plaquenil] adhesive Allergy Intermediate SWELLING Verified 11/11/23 02:28 AND REDNESS LOCALLY metoprolol Allergy Unknown ON [facility] MED Verified 11/11/23 02:28 LIST oxycodone Allergy Unknown ON [facility] MED Verified 11/11/23 02:28 LIST codeine AdvReac Intermediate NAUSEA AND Verified 11/11/23 02:28 VOMITING morphine AdvReac Intermediate NAUSEA AND Verified 11/11/23 02:28 VOMITING Consultations 11/11/23 03:49 ED Decision to Admit Stat 11/11/23 08:00 Consult Cardiology Routine Hospital Course (1) Atrial fibrillation, rapid: Plan 78-year-old female with past medical history significant for hypothyroidism, paroxysmal atrial fibrillation, chronic pain of multiple joints,, late onset Alzheimer's dementia with mood disturbance, depression, history of COVID, who lives alone at home and ambulates without support comes because she was feeling dizzy today and had some chest discomfort and found to be in rapid A-fib. Atrial fibrillation with RVR Patient presented from home with dizziness and chest discomfort. EKG on admission reviewed; showed atrial fibrillation with ventricular rate of 109. High sensitive troponin negative. During the hospitalization, patient converted to sinus rhythm spontaneously. Cardiology was consulted for comanagement; recommended to stop Cardizem as needed. Patient did not have any chest pain, shortness of breath or dizziness at discharge. Patient discharged home with instruction to follow-up with PCP. Patient had 2 calluses on her left foot. Recommended to follow-up with PCP and obtain podiatry referral. Please note the above document was generated using voice recognition software. It may contain grammatical, syntax or spelling errors. Any formal questions or concerns about the content, text or information contained within the body of this dictation should be directly addressed to the provider for clarification Total Time Total Time Spent Total Time Spent (In Minutes): 35 Total Time Includes: Examination of the Patient, Discharge Planning, Medication Reconciliation, Communication With Other Providers and Other Discharge Plan Discharge Items Patient Disposition: Home - Self-Care Reason For Visit: RAPID A FIB Discharge Diagnosis: Atrial Fibrillation with RVR Activity: Resume your previous activity Non-emergency contact: Primary Care Provider Call non-emergency contact if: you have any medication questions and your symptoms worsen Follow-up/Referrals: Corby Kang MD [Primary Care Provider] - (Date & Time 11/18/2023 11:00 AM Provider Tate Aguilar CRNP Department [facility] ) Diet: Regular Addtl Attending Provider Instructions: You were admitted to the hospital with Atrial fibrillation with rapid ventricular rate. You were evaluated by Cardiology who recommended to stop Cardizem. Please take your medications as prescribed before. Please take other medication as prescribed before. Please follow up with PCP as scheduled. Please discuss treatment regarding the callus on your left foot. You might need referral to podiatry. Pending Studies at Discharge: No Stand-Alone Forms: My [employer], Smoking Cessation Medications and DC Order Prescriptions: Continued metoprolol succinate 25 mg tablet extended release 24 hr 25 mg PO DAILY Qty: 90 3RF latanoprost 0.005 % drops 1 drops OP QPM levothyroxine 25 mcg tablet 25 mcg PO DAILY ferrous sulfate [Feosol] 325 mg (65 mg iron) tablet 325 mg PO DAILY magnesium 250 mg tablet 250 mg PO DAILY cholecalciferol (vitamin D3) [Vitamin D3] 1,000 unit Capsule 1,000 unit PO BID Xarelto 20 mg tablet 20 mg PO DAILY Qty: 30 0RF Rx Instructions: must administer with evening meal vitamin B complex Tablet 1 tab PO DAILY fluoxetine 40 mg capsule 40 mg PO DAILY donepezil 10 mg tablet 10 mg PO DAILY Discontinued diltiazem HCl 120 mg capsule,extended release 24 hr 120 mg PO DAILY PRN (Reason: as needed for exercise) Qty: 30 2RF Rx Instructions: take as needed when planning a walk Discharge Orders: Discharge Order (Routine); Ordered 11/12/23 Ordered By: Isak Doan Admission Data Admit Date/Time: 11/11/23 04:47 Attending Provider: Isak Doan Admit Provider: Wilber Snow Primary Care Provider: Corby Knag Other Providers: Wilber Snow; Joel Wood; [facility]; [facility]
[2023-11-12] MEDS: RIVAROXABAN 20 MG TAB PO SCH (16:52)
--- NOTE | 2023-11-15 11:59 | Electrocardiogram Report ---
Test Reason : Blood Pressure : / mmHG Vent. Rate : 103 BPM Atrial Rate : 000 BPM P-R Int : 000 ms QRS Dur : 074 ms QT Int : 356 ms P-R-T Axes : 000 061 -27 degrees QTc Int : 466 ms Atrial fibrillation with rapid ventricular response Nonspecific ST abnormality Abnormal ECG Confirmed by Joel Wood ([id number]) on 11/15/2023 11:58:49 AM Referred By: REFERRED SELF Confirmed By:Robbie Wood
== END 2023-11-12 17:13 | disposition home health service (06) | DRG 310 ==
LOC: ED 01:50 → 2E 04:47

== ENCOUNTER 2023-11-15 01:31 | Inpatient (IN) ==
[2023-11-15 02:25] LABS: Basophils # (auto) 0.03 K/uL (0.00-0.20); Basophils % (auto) 0.5 %; Eosinophils # (auto) 0.18 K/uL (0.00-0.50); Eosinophils % (auto) 2.9 %; Hematocrit (blood only) 35.3 % (37.0-47.0); Hemoglobin 12.1 g/dl (12.0-16.0); Immature Granulocytes # (auto) 0.02 K/uL (0.01-0.20); Immature Granulocytes % (auto) 0.3 %; Lymphocytes # (auto) 1.93 K/uL (1.20-3.40); Mean Corpuscular Hemoglobin 30.6 pg (25.0-34.0); Mean Corpuscular Hgb Conc 34.3 g/dL (32.0-36.0); Mean Corpuscular Volume 89.1 fL (80.0-100.0); Mean Platelet Volume 9.1 fL (9.4-12.4); Monocytes # (auto) 0.43 K/uL (0.11-0.59); Monocytes % (auto) 6.9 %; Neutrophils # (auto) 3.64 K/uL (1.40-6.50); Neutrophils % (auto) 58.4 %; Platelet Count 247 K/uL (130-400); RDW Coefficient of Variation 13.1 % (11.5-14.5); RDW Standard Deviation 42.8 fL (36.4-46.3); Red Blood Count 3.96 M/uL (4.20-5.40); White Blood Count 6.23 K/ul (4.8-10.8)
[2023-11-15 02:42] LABS: Albumin Globulin Ratio 1.3 (0.9-2); Albumin Level 3.9 gm/dl (3.4-5.0); Bilirubin,Total 0.6 mg/dl (0.2-1.0); Calcium 9.4 mg/dl (8.6-10.3); Creatinine Clr Calc Pharmacy 54.3 ml/min; Est GFR (African American) 95.9 ml/min; Est GFR (Non-African American) 82.7 ml/min; Globulin 2.9 gm/dl (2.5-4.0); Potassium 3.3 mmol/L (3.5-5.1); Total Protein 6.8 gm/dl (6.0-8.3)
[2023-11-15 02:48] LABS: Troponin I High Sensitivity 4.3 pg/ml (0-14)
[2023-11-15] MEDS ORDERED: METOPROLOL TARTRATE 1 MG/ML VIAL IV STA ×2 (02:53→04:04)
[2023-11-15] MEDS ORDERED: POTASSIUM CHLORIDE CRTAB 20 MEQ TABCR PO STA (04:10)
[2023-11-15] MEDS ORDERED: ACETAMINOPHEN 325 MG TAB ONE (04:31)
[2023-11-15] MEDS ORDERED: ACETAMINOPHEN 325 MG TAB PO STA (04:32)
--- NOTE | 2023-11-15 04:47 | Emergency Department Note ---
Impression & Plan Atrial fibrillation with rapid ventricular response, Hypokalemia, At risk for medication noncompliance Admit to the [facility] ED Provider Note NAME: CALI CHAUDHRY AGE: 78 SEX: Female INFORMANT: Patient ED PROVIDER(S): Dolly Saucedo DO CHIEF COMPLAINT: Heart palpitations PLAN: Disposition: Admit to the [facility] MEDICAL DECISION MAKING: This is a 78-year-old female patient with a history of paroxysmal A-fib who presents to the emergency department with heart palpitations. Patient has A-fib with RVR. She describes an ache in her chest but no shortness of breath. The patient was just here today 2 days ago with the same presentation. Patient was recently diagnosed with early dementia and that seems to be worsening. It seems that the patient has no idea what medication she is supposed to be taking on the outpatient basis. I am not sure whether or not she is taking her Xarelto or metoprolol. Laboratory studies revealed no leukocytosis or anemia. The patient potassium was slightly low at 3.3. Troponin was negative. Renal function was normal. Patient was given oral dose of potassium and 2 doses of IV Lopressor here in the ER which gave some control to her rate. [facility] for further inpatient care for rate control but more importantly for social service management of this patient who is currently living alone and unable to manage her medications, take a normal diet and chronic illness at home by herself. Of note, the patient converted to a sinus rhythm prior to going upstairs to her inpatient room. I believe she still requires admission to the hospital and social service management because of her inability to care for herself at home and manage medications or taking normal diet. Care/management discussed with: manager energy and [facility] Triage Nursing notes: Reviewed and agree with them. Vital Signs: reviewed and remarkable for tachycardia Chronic Medical/Social Conditions affecting care: Patient lives at her home by herself with dementia Differential Diagnosis: NSTEMI, cardiac dysrhythmia, hypokalemia, renal failure Diagnostics, independently interpreted by me: ECG: Atrial fibrillation at a rate of [address] segment elevation or signs of ischemia. Cardiac Monitoring: A-fib at a rate of 112 Imaging studies: Portable chest x-ray: No acute pulmonary infiltrates or pleural effusions. HPI: 78 year old Female arrives for evaluation of palpitation. Patient woke from sleep with palpitations. She describes an ache in her chest but no obvious shortness of breath. She was here couple days ago with the same thing. She called EMS and they transported her here. Patient does live alone and suffers from dementia. She is unsure whether or not she is on a blood thinner and is unsure how to take her medications at home. She cannot remember what she ate yesterday throughout the day. PAST MEDICAL HISTORY: See Below, PAST SURGICAL HISTORY: See Below, SOCIAL HISTORY: See Below, HOME MEDICATIONS: See ALLERGIES: See list VITALS: See Below PHYSICAL EXAMINATION: HEENT: Head - normocephalic and atraumatic Pupils are equal, round, and reactive to light. Extraocular eye muscles are intact, and sclera are anicteric. Nose - moist nasal mucosa without discharge. Mouth - moist buccal mucosa. Oropharynx is nonerythematous and there is no tonsillar exudate or edema noted. Neck: Supple; no JVD, nuchal rigidity, cervical lymphadenopathy, or auscultated bruits. Heart: Tachycardic rate and irregularly irregular rhythm. There is a normal S1 and S2 with no murmurs, clicks, or gallops appreciated. Lungs: Clear to auscultation bilaterally with no wheezes, rales, or rhonchi. Abdomen: Soft, completely nontender, nondistended, with good bowel sounds. There are no palpable pulsatile masses or hepatosplenomegaly. There is no guarding, rigidity, or rebound noted. Extremities: No evidence of cyanosis, clubbing, or edema. There are easily palpable peripheral pulses. Skin: warm and dry with good turgor and no rashes. Emergency department treatment: psychiatric registered nurse, IV Lopressor x 2, oral potassium Emergency department course: The patient was evaluated in room B-11. A complete history and physical was performed. Normal was placed for continuous cardiac monitoring. The patient was in atrial fibrillation at a rate of 112. A twelve- lead EKG was obtained as described above. Laboratory studies were drawn as above. A portable chest x-ray was performed. Patient was given 5 mg of IV Lopressor to control her rate. This worked for short period of time but then the rate bounced up even higher into the 120s. She was given a second dose of IV Lopressor. This did bring her rate down into the 90s. She was given oral dose of potassium for slightly low potassium level. I discussed the case with the [facility] Hospitalist. I have personally spent greater than 30 minutes of critical care time in the direct management of this patient. This includes bedside care, interpretation of diagnostic studies, and testing, discussion with consultants, patient, and family members, and other required patient management activities. This 30 minutes is in excess of all separately billable procedures. Past Med/Surg History Medical History (Updated 11/15/23 @ 04:47 by Dolly Saucedo DO) Paroxysmal atrial fibrillation Osteoarthritis Menopause Breast cyst Mitral regurgitation Arthritis Surgical History History of tubal ligation S/P abdominal hysterectomy and left salpingo-oophorectomy History of tonsillectomy and adenoidectomy H/O hernia repair S/P dilatation and curettage History of appendectomy Hx of cataract surgery History of total hip replacement Family History Father Myocardial infarction Congestive heart failure Pure hypercholesterolemia Brother Exertional angina Mother Hypotension Social History Smoking Status: Never smoker Do You Dip or Chew Tobacco: No; Hx Alcohol Use: No Hx Substance Use: No Preferred Language: Upper Sorbian Communication Ability: Effective Rn Telephone Triage Required: No Beliefs That Will Affect Care: None marital status: Current Living Situation: Alone Current Living Situation Comment: House current occupational status: employed Feels Safe at Home: Yes Assistive Devices: None Allergies Allergies Allergy/AdvReac Type Severity Reaction Status Date / Time hydroxychloroquine Allergy Severe rash, hives Verified 11/11/23 02:28 [From Plaquenil] adhesive Allergy Intermediate SWELLING Verified 11/11/23 02:28 AND REDNESS LOCALLY metoprolol Allergy Unknown ON [facility] MED Verified 11/11/23 02:28 LIST oxycodone Allergy Unknown ON [facility] MED Verified 11/11/23 02:28 LIST codeine AdvReac Intermediate NAUSEA AND Verified 11/11/23 02:28 VOMITING morphine AdvReac Intermediate NAUSEA AND Verified 11/11/23 02:28 VOMITING Home Meds Home Medications Medication Instructions Recorded Confirmed Vitamin D3 1,000 units PO BID 11/15/23 11/15/23 donepezil 10 mg tablet 10 mg PO DAILY 11/15/23 11/15/23 ferrous sulfate 325 mg PO DAILY 11/15/23 11/15/23 fluoxetine 40 mg capsule 40 mg PO DAILY 11/15/23 11/15/23 latanoprost 0.005 % eye drops 1 drp OPB DAILY 11/15/23 11/15/23 levothyroxine 25 mcg tablet 25 mcg PO DAILY 11/15/23 11/15/23 magnesium 200 mg tablet 200 mg PO DAILY 11/15/23 11/15/23 metoprolol succinate 25 mg 25 mg PO DAILY 11/15/23 11/15/23 tablet,extended release 24 hr rivaroxaban 20 mg tablet (Xarelto) 20 mg PO HS 11/15/23 11/15/23 vitamin B complex 1 cap PO DAILY 11/15/23 11/15/23 Results & Data (ED) Vital Signs Vital Signs - 24 hr 11/15/23 01:40 11/15/23 01:46 11/15/23 02:13 Temperature 36.2 C L Temperature Source Oral Pulse Rate 107 H 104 H 91 H Pulse Rate [Apical] Pulse Rate from SpO2 Sensor 89 Respiratory Rate 18 14 Respiratory Effort / Characteristics Non-Labored Respiratory Depth Normal Blood Pressure 160/100 H 160/99 H Blood Pressure [Right Arm] Blood Pressure Mean 120 119 Blood Pressure Mean [Right Arm] Pulse Oximetry 100 100 Oxygen Delivery Method Room Air Room Air Sepsis Recent Fever Within 48 Hours No Sepsis New/Unexplained Change in Mental Status No Sepsis Action Taken by Nursing No Action Required 11/15/23 02:48 11/15/23 03:22 11/15/23 03:24 Temperature Temperature Source Pulse Rate 112 H 125 H Pulse Rate [Apical] Pulse Rate from SpO2 Sensor 114 H Respiratory Rate 15 Respiratory Effort / Characteristics Respiratory Depth Blood Pressure 148/92 H 161/101 H Blood Pressure [Right Arm] Blood Pressure Mean 110 Blood Pressure Mean [Right Arm] Pulse Oximetry 99 100 Oxygen Delivery Method Room Air Room Air Sepsis Recent Fever Within 48 Hours Sepsis New/Unexplained Change in Mental Status Sepsis Action Taken by Nursing 11/15/23 03:44 11/15/23 04:17 11/15/23 04:30 Temperature Temperature Source Pulse Rate 104 H 99 H Pulse Rate [Apical] 96 H Pulse Rate from SpO2 Sensor Respiratory Rate 16 20 Respiratory Effort / Characteristics Respiratory Depth Blood Pressure 141/91 H 155/89 H Blood Pressure [Right Arm] 154/119 H Blood Pressure Mean 111 Blood Pressure Mean [Right Arm] 130 Pulse Oximetry 100 99 Oxygen Delivery Method Room Air Room Air Sepsis Recent Fever Within 48 Hours Sepsis New/Unexplained Change in Mental Status Sepsis Action Taken by Nursing 11/15/23 05:00 11/15/23 05:30 11/15/23 05:38 Temperature Temperature Source Pulse Rate 92 H 68 61 Pulse Rate [Apical] Pulse Rate from SpO2 Sensor Respiratory Rate 15 14 Respiratory Effort / Characteristics Respiratory Depth Blood Pressure 161/83 H Blood Pressure [Right Arm] Blood Pressure Mean 109 Blood Pressure Mean [Right Arm] Pulse Oximetry 98 96 Oxygen Delivery Method Room Air Room Air Sepsis Recent Fever Within 48 Hours Sepsis New/Unexplained Change in Mental Status Sepsis Action Taken by Nursing 11/15/23 06:01 Temperature Temperature Source Pulse Rate 64 Pulse Rate [Apical] Pulse Rate from SpO2 Sensor Respiratory Rate 24 Respiratory Effort / Characteristics Respiratory Depth Blood Pressure 125/82 Blood Pressure [Right Arm] Blood Pressure Mean 96 Blood Pressure Mean [Right Arm] Pulse Oximetry 97 Oxygen Delivery Method Room Air Sepsis Recent Fever Within 48 Hours Sepsis New/Unexplained Change in Mental Status Sepsis Action Taken by Nursing Laboratory Data 11/15/23 02:11 11/15/23 02:11 Lab Results 11/15/23 Range/Units 02:11 WBC 6.23 (4.8-10.8) K/ul RBC 3.96 L (4.20-5.40) M/uL Hgb 12.1 (12.0-16.0) g/dl Hct 35.3 L (37.0-47.0) % MCV 89.1 (80.0-100.0) fL MCH 30.6 (25.0-34.0) pg MCHC 34.3 (32.0-36.0) g/dL RDW Std Deviation 42.8 (36.4-46.3) fL RDW Coeff of Amena 13.1 (11.5-14.5) % Plt Count 247 (130-400) K/uL MPV 9.1 L (9.4-12.4) fL Immature Gran % (Auto) 0.3 % Neut % (Auto) 58.4 % Lymph % (Auto) 31.0 % Rolette % (Auto) 6.9 % Eos % (Auto) 2.9 % Baso % (Auto) 0.5 % Neut # (Auto) 3.64 (1.40-6.50) K/uL Lymph # (Auto) 1.93 (1.20-3.40) K/uL Rolette # (Auto) 0.43 (0.11-0.59) K/uL Eos # (Auto) 0.18 (0.00-0.50) K/uL Baso # (Auto) 0.03 (0.00-0.20) K/uL Immature Gran # (Auto) 0.02 (0.01-0.20) K/uL Sodium 139 (136-145) mmol/L Potassium 3.3 L (3.5-5.1) mmol/L Chloride 104 (98-107) mmol/L Carbon Dioxide 26 (21-32) mmol/L Anion Gap 9 (3-11) BUN 22 (6-23) mg/dl Creatinine 0.71 (0.6-1.2) mg/dl Est Cr Clr Drug Dosing 54.3 ml/min Est GFR ( Amer) 95.9 ml/min Est GFR (Non-Af Amer) 82.7 ml/min BUN/Creatinine Ratio 31.0 H (10-20) Glucose 102 H (70-99(Fasting)) mg/dl Calcium 9.4 (8.6-10.3) mg/dl Total Bilirubin 0.6 (0.2-1.0) mg/dl AST 20 (13-39) U/L ALT 14 (7-52) U/L Alkaline Phosphatase 66 (34-104) U/L Troponin I High Sens 4.3 (0-14) pg/ml Total Protein 6.8 (6.0-8.3) gm/dl Albumin 3.9 (3.4-5.0) gm/dl Globulin 2.9 (2.5-4.0) gm/dl Albumin/Globulin Ratio 1.3 (0.9-2) Lipase 61 (11-82) U/L Administered Medications Discontinued Medications Acetaminophen (Acetaminophen 325 Mg Tab) 650 mg PO NOW STA Stop: 11/15/23 04:33 Last Admin: 11/15/23 04:34 Dose: 650 mg Documented By: KMF Metoprolol Tartrate (Metoprolol Tartrate 1 Mg/Ml Vial) 5 mg IV NOW STA Stop: 11/15/23 02:54 Last Admin: 11/15/23 03:22 Dose: 5 mg Documented By: GEORGI Metoprolol Tartrate (Metoprolol Tartrate 1 Mg/Ml Vial) 5 mg IV NOW STA Stop: 11/15/23 04:05 Last Admin: 11/15/23 04:17 Dose: 5 mg Documented By: GEORGI Potassium Chloride (Potassium Chloride Crtab 20 Meq Tabcr) 40 meq PO NOW STA Stop: 11/15/23 04:11 Last Admin: 11/15/23 04:28 Dose: 40 meq Documented By: GEORGI Discharge Plan Visit Data Chief Complaint: Arrhythmia/Palpitations Stated Complaint: HEART PALPITATIONS ED Provider: Dolly Saucedo Discharge Problem: Atrial fibrillation with rapid ventricular response, Hypokalemia, At risk for medication noncompliance Forms Stand Alone Forms: [facility] Prescriptions Prescriptions: No Action fluoxetine 40 mg capsule 40 mg PO DAILY latanoprost 0.005 % drops 1 drp OPB DAILY donepezil 10 mg tablet 10 mg PO DAILY levothyroxine 25 mcg tablet 25 mcg PO DAILY metoprolol succinate 25 mg tablet extended release 24 hr 25 mg PO DAILY Xarelto 20 mg tablet 20 mg PO HS vitamin B complex [B Complex] Capsule 1 cap PO DAILY magnesium 200 mg Tablet 200 mg PO DAILY Vitamin D3 1,000 units 1,000 units PO BID ferrous sulfate 325 mg 325 mg PO DAILY Referrals Referrals: Corby Kang MD [Primary Care Provider] -
--- NOTE | 2023-11-15 07:27 | XRay Report ---
XR chest 1V portable CLINICAL HISTORY: Chest pain, nonspecific. COMPARISON STUDY: Chest radiograph November 11, 2023. FINDINGS: Lung volumes are normal. Lungs are clear. There is no pneumothorax or pleural effusion. Car diac size is normal. Mediastinal contours are normal. There is no evidence for pulmonary edema. IMPRESSION: No acute cardiopulmonary findings. ACT 112: Negative or not required by law. Electronically signed by: Mariusz Dubon M.D. 11/15/2023 7:25 AM
--- NOTE | 2023-11-15 07:54 | History & Physical Report ---
Date of Service November 15, 2023 Assessment & Plan (1) Atrial fibrillation with rapid ventricular response: Plan: 78-year-old female with past medical history significant for hypothyroidism, paroxysmal atrial fibrillation, chronic pain of multiple joints,, late onset Alzheimer's dementia with mood disturbance, depression, history of COVID, who lives alone at home and ambulates without support comes because of rapid A-fib. Patient was recently in the hospital with rapid A-fib and was seen by cardiology and echo was done which showed normal EF. Mild mitral regurgitation moderate tricuspid regurgitation with normal right ventricular systolic pressure. Small pericardial effusion. Patient was discharged home on November 12. Patient states she called EMS but she did not remember why she called EMS. In the ER she was in rapid A-fib and received couple of doses of IV Lopressor. Currently rates under control. Resting comfortably. Denies any headache. No cough. No fever. No chest pain or shortness of breath. No nausea. No abdominal pain. Normal bowel and bladder movements. Rapid A-fib Has dementia, doubt she is taking her medications Continue home metoprolol IV Lopressor as needed Continue Xarelto Monitoring daily May need placement Hypothyroidism On Synthyroid Alzheimer's dementia Continue home donezepil Monitor for delirium Depression On fluoxetine DVT prophylaxis On Xarelto Disposition Telemetry floor volunteer services manager to help with discharge planning as patient lives alone and has dementia and patient is interested in going to [facility]. May be missing her medications. Seems she is working on [employer] History of Present Illness Chief Complaint: Rapid A-fib Primary Care Provider: Corby Kang MD 78-year-old female with past medical history significant for hypothyroidism, paroxysmal atrial fibrillation, chronic pain of multiple joints,, late onset Alzheimer's dementia with mood disturbance, depression, history of COVID, who lives alone at home and ambulates without support comes because of rapid A-fib. Patient was recently in the hospital with rapid A-fib and was seen by cardiology and echo was done which showed normal EF. Mild mitral regurgitation moderate tricuspid regurgitation with normal right ventricular systolic pressure. Small pericardial effusion. Patient was discharged home on November 12. Patient states she called EMS but she did not remember why she called EMS. In the ER she was in rapid A-fib and received couple of doses of IV Lopressor. Currently rates under control. Resting comfortably. Denies any headache. No cough. No fever. No chest pain or shortness of breath. No nausea. No abdominal pain. Normal bowel and bladder movements. Past medical history. As mentioned above. Past surgical history. Colonoscopy. Foot surgery. Right total hip replacement. Right revision of total hip replacement. Left total hip replacement. Social history. Currently lives alone. No smoking. No alcohol use. No drug use. Family history. suicide, 1 son suicide, 1 son alive. Allergies Allergy/AdvReac Type Severity Reaction Status Date / Time hydroxychloroquine Allergy Severe rash, hives Verified 11/11/23 02:28 [From Plaquenil] adhesive Allergy Intermediate SWELLING Verified 11/11/23 02:28 AND REDNESS LOCALLY metoprolol Allergy Unknown ON [facility] Verified 11/11/23 02:28 LIST oxycodone Allergy Unknown ON [facility] Verified 11/11/23 02:28 LIST codeine AdvReac Intermediate NAUSEA AND Verified 11/11/23 02:28 VOMITING morphine AdvReac Intermediate NAUSEA AND Verified 11/11/23 02:28 VOMITING Home Medications Medication Instructions Recorded Confirmed Type Vitamin D3 1,000 units PO BID 11/15/23 11/15/23 History donepezil 10 mg tablet 10 mg PO DAILY 11/15/23 11/15/23 History ferrous sulfate 325 mg PO DAILY 11/15/23 11/15/23 History fluoxetine 40 mg capsule 40 mg PO DAILY 11/15/23 11/15/23 History latanoprost 0.005 % eye drops 1 drp OPB DAILY 11/15/23 11/15/23 History levothyroxine 25 mcg tablet 25 mcg PO DAILY 11/15/23 11/15/23 History magnesium 200 mg tablet 200 mg PO DAILY 11/15/23 11/15/23 History metoprolol succinate 25 mg 25 mg PO DAILY 11/15/23 11/15/23 History tablet,extended release 24 hr rivaroxaban 20 mg tablet (Xarelto) 20 mg PO HS 11/15/23 11/15/23 History vitamin B complex 1 cap PO DAILY 11/15/23 11/15/23 History Past Med/Surg History Medical History (Updated 11/15/23 @ 04:47 by Dolly Saucedo DO) Paroxysmal atrial fibrillation Osteoarthritis Menopause Breast cyst Mitral regurgitation Arthritis Surgical History History of tubal ligation S/P abdominal hysterectomy and left salpingo-oophorectomy History of tonsillectomy and adenoidectomy H/O hernia repair S/P dilatation and curettage History of appendectomy Hx of cataract surgery History of total hip replacement Family History Father Myocardial infarction Congestive heart failure Pure hypercholesterolemia Brother Exertional angina Mother Hypotension Social History Smoking Status: Never smoker Do You Dip or Chew Tobacco: No; Hx Alcohol Use: No Hx Substance Use: No Preferred Language: [place] Communication Ability: Effective Media Relations Specialist Required: No Beliefs That Will Affect Care: None marital status: Current Living Situation: Alone Current Living Situation Comment: House current occupational status: employed Feels Safe at Home: Yes Assistive Devices: None Review of Systems Review of Systems: All systems reviewed & are unremarkable except as noted in HPI & below Physical Exam Physical Exam: General- Not in distress Head- atraumatic Eyes- PERRL. ENT- oropharynx clear Neck- supple, no JVD. Lungs- clear to auscultation no wheezing or crackles. Heart- irregular rhythm; no murmur, no gallop. Abdomen- normal bowel sounds, soft, nontender, no distension. Extremities- no pretibial edema, no erythema Neuro- alert, and awake,; PERRL,; no facial palsy; no dysarthria; moves extremities. Skin- warm & dry Results & Data Results & Data Vital Signs (Past 12 Hours) Vital Signs Temp Pulse Pulse Resp BP BP Pulse Ox 11/15/23 07:00 59 L 12 126/75 94 11/15/23 06:30 58 L 14 134/73 11/15/23 06:01 64 24 125/82 97 11/15/23 05:38 61 11/15/23 05:30 68 14 161/83 H 96 11/15/23 05:00 92 H 15 98 11/15/23 04:30 99 H 20 155/89 H 99 11/15/23 04:17 104 H 141/91 H 11/15/23 03:44 96 H 16 154/119 H 100 11/15/23 03:24 100 11/15/23 03:22 125 H 161/101 H 11/15/23 02:48 112 H 15 148/92 H 99 11/15/23 02:13 91 H 14 160/99 H 100 11/15/23 01:46 36.2 C L 104 H 18 160/100 H 100 11/15/23 01:40 107 H O2 Del Method 11/15/23 07:00 Room Air 11/15/23 06:30 11/15/23 06:01 Room Air 11/15/23 05:38 11/15/23 05:30 Room Air 11/15/23 05:00 Room Air 11/15/23 04:30 Room Air 11/15/23 04:17 11/15/23 03:44 Room Air 11/15/23 03:24 Room Air 11/15/23 03:22 11/15/23 02:48 Room Air 11/15/23 02:13 Room Air 11/15/23 01:46 Room Air 11/15/23 01:40 Diagnostic Findings Laboratory Results WBC 6.23 K/ul (4.8-10.8) 11/15/23 02:11 RBC 3.96 M/uL (4.20-5.40) L 11/15/23 02:11 Hgb 12.1 g/dl (12.0-16.0) 11/15/23 02:11 Hct 35.3 % (37.0-47.0) L 11/15/23 02:11 MCV 89.1 fL (80.0-100.0) 11/15/23 02:11 MCH 30.6 pg (25.0-34.0) 11/15/23 02:11 MCHC 34.3 g/dL (32.0-36.0) 11/15/23 02:11 RDW Std Deviation 42.8 fL (36.4-46.3) 11/15/23 02:11 RDW Coeff of Amena 13.1 % (11.5-14.5) 11/15/23 02:11 Plt Count 247 K/uL (130-400) 11/15/23 02:11 MPV 9.1 fL (9.4-12.4) L 11/15/23 02:11 Immature Gran % (Auto) 0.3 % 11/15/23 02:11 Neut % (Auto) 58.4 % 11/15/23 02:11 Lymph % (Auto) 31.0 % 11/15/23 02:11 [place] % (Auto) 6.9 % 11/15/23 02:11 Eos % (Auto) 2.9 % 11/15/23 02:11 Baso % (Auto) 0.5 % 11/15/23 02:11 Neut # (Auto) 3.64 K/uL (1.40-6.50) 11/15/23 02:11 Lymph # (Auto) 1.93 K/uL (1.20-3.40) 11/15/23 02:11 [place] # (Auto) 0.43 K/uL (0.11-0.59) 11/15/23 02:11 Eos # (Auto) 0.18 K/uL (0.00-0.50) 11/15/23 02:11 Baso # (Auto) 0.03 K/uL (0.00-0.20) 11/15/23 02:11 Immature Gran # (Auto) 0.02 K/uL (0.01-0.20) 11/15/23 02:11 Sodium 139 mmol/L (136-145) 11/15/23 02:11 Potassium 3.3 mmol/L (3.5-5.1) L 11/15/23 02:11 Chloride 104 mmol/L (98-107) 11/15/23 02:11 Carbon Dioxide 26 mmol/L (21-32) 11/15/23 02:11 Anion Gap 9 (3-11) 11/15/23 02:11 BUN 22 mg/dl (6-23) 11/15/23 02:11 Creatinine 0.71 mg/dl (0.6-1.2) 11/15/23 02:11 Est Cr Clr Drug Dosing 54.3 ml/min 11/15/23 02:11 Est GFR ( Amer) 95.9 ml/min 11/15/23 02:11 Est GFR (Non-Af Amer) 82.7 ml/min 11/15/23 02:11 BUN/Creatinine Ratio 31.0 (10-20) H 11/15/23 02:11 Glucose 102 mg/dl (70-99(Fasting)) H 11/15/23 02:11 Calcium 9.4 mg/dl (8.6-10.3) 11/15/23 02:11 Total Bilirubin 0.6 mg/dl (0.2-1.0) 11/15/23 02:11 AST 20 U/L (13-39) 11/15/23 02:11 ALT 14 U/L (7-52) 11/15/23 02:11 Alkaline Phosphatase 66 U/L (34-104) 11/15/23 02:11 Troponin I High Sens 4.3 pg/ml (0-14) 11/15/23 02:11 Total Protein 6.8 gm/dl (6.0-8.3) 11/15/23 02:11 Albumin 3.9 gm/dl (3.4-5.0) 11/15/23 02:11 Globulin 2.9 gm/dl (2.5-4.0) 11/15/23 02:11 Albumin/Globulin Ratio 1.3 (0.9-2) 11/15/23 02:11 Lipase 61 U/L (11-82) 11/15/23 02:11 Impressions Chest X-Ray 11/15/23 01:57 XR chest 1V portable CLINICAL HISTORY: Chest pain, nonspecific. COMPARISON STUDY: Chest radiograph November 11, 2023. FINDINGS: Lung volumes are normal. Lungs are clear. There is no pneumothorax or pleural effusion. Cardiac size is normal. Mediastinal contours are normal. There is no evidence for pulmonary edema. IMPRESSION: No acute cardiopulmonary findings. ACT 112: Negative or not required by law. Electronically signed by: Mariusz Dubon M.D. 11/15/2023 7:25 AM ECG Additional Comments: ECG. Atrial fibrillation with rapid ventricular response rate of 103. Code Status & VTE Plan VTE Prophylaxis Plan VTE Prophylaxis will be ordered: Yes
[2023-11-15] MEDS ORDERED: METOPROLOL TARTRATE 1 MG/ML VIAL IV PRN (08:59)
[2023-11-15] MEDS ORDERED: POLYETHYLENE (MIRALAX) 17 GM PACK PO PRN (08:59)
[2023-11-15] MEDS ORDERED: NITROGLYCERIN SL 0.4 MG/TAB TAB SL PRN (08:59)
[2023-11-15] MEDS: METOPROLOL SUCC 25MG EXT REL TAB PO SCH (10:12)
[2023-11-15] MEDS: CHOLECALCIFEROL 1,000 UNITS 25 MCG TAB PO SCH ×2 (10:13→21:26)
[2023-11-15] MEDS: FERROUS SULFATE 325 MG TAB PO SCH (10:13)
[2023-11-15] MEDS: FLUoxetine HCL 20 MG CAP PO SCH (10:13)
[2023-11-15] MEDS: DONEPEZIL HCL 10 MG TAB PO SCH (10:13)
[2023-11-15] MEDS: MAGNESIUM OXIDE 400 MG TAB PO SCH (10:13)
[2023-11-15] MEDS: LATANOPROST 0.005% OP SOLN 2.5 ML BTL OPB SCH (10:14)
[2023-11-15] MEDS: VITAMIN B COMPLEX TAB PO SCH (10:14)
[2023-11-15 10:25] LABS: Basophils # (auto) 0.03 K/uL (0.00-0.20); Basophils % (auto) 0.5 %; Eosinophils % (auto) 1.7 %; Hematocrit (blood only) 33.5 % (37.0-47.0); Hemoglobin 11.7 g/dl (12.0-16.0); Immature Granulocytes # (auto) 0.01 K/uL (0.01-0.20); Immature Granulocytes % (auto) 0.2 %; Lymphocytes # (auto) 1.19 K/uL (1.20-3.40); Mean Corpuscular Hemoglobin 30.9 pg (25.0-34.0); Mean Corpuscular Hgb Conc 34.9 g/dL (32.0-36.0); Mean Corpuscular Volume 88.4 fL (80.0-100.0); Mean Platelet Volume 9.2 fL (9.4-12.4); Monocytes # (auto) 0.33 K/uL (0.11-0.59); Monocytes % (auto) 5.5 %; Neutrophils # (auto) 4.29 K/uL (1.40-6.50); Neutrophils % (auto) 72.1 %; Platelet Count 267 K/uL (130-400); RDW Coefficient of Variation 13.1 % (11.5-14.5); RDW Standard Deviation 42.1 fL (36.4-46.3); Red Blood Count 3.79 M/uL (4.20-5.40); White Blood Count 5.95 K/ul (4.8-10.8)
[2023-11-15 10:41] LABS: BUN Creatinine Ratio 25.8 (10-20); Calcium 9.3 mg/dl (8.6-10.3); Creatinine Clr Calc Pharmacy 56.7 ml/min; Est GFR (African American) 99.5 ml/min; Est GFR (Non-African American) 85.8 ml/min; Magnesium 1.9 mg/dl (1.7-2.4)
[2023-11-15 10:54] LABS: Troponin I High Sensitivity 4.1 pg/ml (0-14)
--- NOTE | 2023-11-15 13:41 | Communication Note ---
Date of Service: November 15, 2023 Patient seen and examined at bedside. She is lying in the bed comfortably; no complaint of palpitation or shortness of breath. EKG on admission personally reviewed; atrial fibrillation with ventricular rate of 103 Telemetry shows normal sinus rhythm. Questionable compliance as patient has been diagnosed with dementia recently. She has memory issues. She is currently living alone. PT OT evaluation ordered. Continue on metoprolol for the time being. If she has rapid ventricular rate; will consider getting cardiology on board. Continue to monitor
[2023-11-15] MEDS: RIVAROXABAN 20 MG TAB PO SCH (17:17)
[2023-11-15] MEDS: ACETAMINOPHEN 325 MG TAB PO PRN (21:25)
[2023-11-16] MEDS: ACETAMINOPHEN 325 MG TAB PO PRN ×2 (04:42→20:32)
[2023-11-16] MEDS: LEVOTHYROXINE SODIUM 25 MCG TABLET PO SCH (05:51)
[2023-11-16] MEDS: METOPROLOL SUCC 25MG EXT REL TAB PO SCH (08:08)
[2023-11-16] MEDS: MAGNESIUM OXIDE 400 MG TAB PO SCH (08:08)
[2023-11-16] MEDS: VITAMIN B COMPLEX TAB PO SCH (08:08)
[2023-11-16] MEDS: DONEPEZIL HCL 10 MG TAB PO SCH (08:08)
[2023-11-16] MEDS: LATANOPROST 0.005% OP SOLN 2.5 ML BTL OPB SCH (08:08)
[2023-11-16] MEDS: FERROUS SULFATE 325 MG TAB PO SCH (08:08)
[2023-11-16] MEDS: CHOLECALCIFEROL 1,000 UNITS 25 MCG TAB PO SCH ×2 (08:08→20:33)
[2023-11-16] MEDS: FLUoxetine HCL 20 MG CAP PO SCH (08:08)
[2023-11-16 09:08] LABS: Basophils # (auto) 0.02 K/uL (0.00-0.20); Basophils % (auto) 0.3 %; Eosinophils # (auto) 0.13 K/uL (0.00-0.50); Hematocrit (blood only) 33.6 % (37.0-47.0); Hemoglobin 11.6 g/dl (12.0-16.0); Immature Granulocytes # (auto) 0.02 K/uL (0.01-0.20); Immature Granulocytes % (auto) 0.3 %; Lymphocytes # (auto) 1.38 K/uL (1.20-3.40); Lymphocytes % (auto) 21.4 %; Mean Corpuscular Hemoglobin 30.4 pg (25.0-34.0); Mean Corpuscular Hgb Conc 34.5 g/dL (32.0-36.0); Mean Corpuscular Volume 88.2 fL (80.0-100.0); Mean Platelet Volume 8.8 fL (9.4-12.4); Monocytes # (auto) 0.35 K/uL (0.11-0.59); Monocytes % (auto) 5.4 %; Neutrophils # (auto) 4.55 K/uL (1.40-6.50); Neutrophils % (auto) 70.6 %; Platelet Count 253 K/uL (130-400); RDW Coefficient of Variation 12.9 % (11.5-14.5); RDW Standard Deviation 41.5 fL (36.4-46.3); Red Blood Count 3.81 M/uL (4.20-5.40); White Blood Count 6.45 K/ul (4.8-10.8)
[2023-11-16 09:24] LABS: BUN Creatinine Ratio 22.6 (10-20); Calcium 9.2 mg/dl (8.6-10.3); Creatinine Clr Calc Pharmacy 67.7 ml/min; Est GFR (African American) 106.9 ml/min; Est GFR (Non-African American) 92.2 ml/min; Potassium 3.7 mmol/L (3.5-5.1)
--- NOTE | 2023-11-16 14:08 | Hospitalist Progress Note ---
Date of Service November 16, 2023 Assessment & Plan (1) Atrial fibrillation with rapid ventricular response: Plan: per previous attending notes with addendum: 78-year-old female with past medical history significant for hypothyroidism, paroxysmal atrial fibrillation, chronic pain of multiple joints,, late onset Alzheimer's dementia with mood disturbance, depression, history of COVID, who lives alone at home and ambulates without support comes because of rapid A-fib. Patient was recently in the hospital with rapid A-fib and was seen by cardiology and echo was done which showed normal EF. Mild mitral regurgitation moderate tricuspid regurgitation with normal right ventricular systolic pressure. Small pericardial effusion. Patient was discharged home on November 12. Patient states she called EMS but she did not remember why she called EMS. In the ER she was in rapid A-fib and received couple of doses of IV Lopressor. Currently rates under control. Resting comfortably. Denies any headache. No cough. No fever. No chest pain or shortness of breath. No nausea. No abdominal pain. Normal bowel and bladder movements. Rapid A-fib Has dementia, doubt she is taking her medications Continue home metoprolol IV Lopressor as needed Continue Xarelto Monitoring daily May need placement 11/16 had a 2 minute episode of a fib HR 120s this morning asymptomatic currently in sinus rhythm continue usual Metoprolol and Xarelto monitor closely Hypothyroidism On Synthyroid TSH 4.4 Alzheimer's dementia Continue home donezepil Monitor for delirium Depression On fluoxetine DVT prophylaxis On Xarelto Disposition transition to [facility] when accepted Admission and Anticipated Discharge Date Admission Date: November 15, 2023 Subjective ff up for a fib etc seen resting in bed, comfortable sitting up in good spirits states she feels fine overall no chest pain, dyspnea, palpitations, dizziness no other new symptoms states she wants to transition to [place] [facility] Review of Systems Review of Systems: all noted and negative except for above Physical Exam Physical Exam: General- oriented x 2, not in distress, speaks in sentences with no effort or accessory muscle use Eyes- anicteric Neck- no JVD Lungs- clear breath sounds bilaterally, no rales/wheezes Heart- normal rate, regular rhythm; no murmurs Abdomen- normal bowel sounds, nondistended, soft, nontender Extremities- no pretibial edema, no calf tenderness Neuro- alert, oriented x 2; no gross focal neurologic deficits Skin- warm & dry Results & Data Results & Data Vital Signs (Past 12 Hours) Vital Signs Temp Pulse Pulse Resp BP Pulse Ox O2 Del Method 11/16/23 11:25 36.7 C 57 L 16 134/73 97 Room Air 11/16/23 08:06 58 L 11/16/23 07:46 36.5 C 56 L 18 171/77 H 98 Room Air 11/16/23 03:25 36.4 C L 55 L 18 170/92 H 96 Room Air all noted and reviewed including below
--- NOTE | 2023-11-16 15:13 | Electrocardiogram Report ---
Test Reason : Blood Pressure : / mmHG Vent. Rate : 052 BPM Atrial Rate : 052 BPM P-R Int : 130 ms QRS Dur : 086 ms QT Int : 446 ms P-R-T Axes : 061 056 047 degrees QTc Int : 414 ms Sinus bradycardia T wave abnormality, consider anterolateral ischemia Abnormal ECG When compared with ECG of 15-NOV-2023 01:36, Significant changes have occurred Confirmed by Joel Wood ([id number]) on 11/16/2023 3:13:41 PM Referred By: REFERRED SELF Confirmed By:Robbie Wood
[2023-11-16] MEDS: RIVAROXABAN 20 MG TAB PO SCH (16:35)
[2023-11-16] MEDS: MELATONIN 3 MG TAB PO PRN (20:32)
[2023-11-17] MEDS ORDERED: LORazepam 0.5 MG TAB PO STA (00:24)
[2023-11-17] MEDS ORDERED: METOPROLOL TARTRATE 1 MG/ML VIAL IV STA (03:31)
[2023-11-17] MEDS: LEVOTHYROXINE SODIUM 25 MCG TABLET PO SCH (05:47)
[2023-11-17] MEDS: CHOLECALCIFEROL 1,000 UNITS 25 MCG TAB PO SCH ×2 (07:48→19:27)
[2023-11-17] MEDS: MAGNESIUM OXIDE 400 MG TAB PO SCH (07:49)
[2023-11-17] MEDS: DONEPEZIL HCL 10 MG TAB PO SCH (07:49)
[2023-11-17] MEDS: VITAMIN B COMPLEX TAB PO SCH (07:49)
[2023-11-17] MEDS: FERROUS SULFATE 325 MG TAB PO SCH (07:50)
[2023-11-17] MEDS: FLUoxetine HCL 20 MG CAP PO SCH (07:50)
[2023-11-17] MEDS: METOPROLOL SUCC 25MG EXT REL TAB PO SCH (07:51)
--- NOTE | 2023-11-17 08:08 | Hospitalist Progress Note ---
Date of Service November 17, 2023 Assessment & Plan (1) Atrial fibrillation with rapid ventricular response: Plan: per previous attending notes with addendum: 78-year-old female with past medical history significant for hypothyroidism, paroxysmal atrial fibrillation, chronic pain of multiple joints,, late onset Alzheimer's dementia with mood disturbance, depression, history of COVID, who lives alone at home and ambulates without support comes because of rapid A-fib. Patient was recently in the hospital with rapid A-fib and was seen by cardiology and echo was done which showed normal EF. Mild mitral regurgitation moderate tricuspid regurgitation with normal right ventricular systolic pressure. Small pericardial effusion. Patient was discharged home on November 12. Patient states she called EMS but she did not remember why she called EMS. In the ER she was in rapid A-fib and received couple of doses of IV Lopressor. Currently rates under control. Resting comfortably. Denies any headache. No cough. No fever. No chest pain or shortness of breath. No nausea. No abdominal pain. Normal bowel and bladder movements. Rapid A-fib Has dementia, doubt she is taking her medications Continue home metoprolol IV Lopressor as needed Continue Xarelto Monitoring daily May need placement 11/16 had a 2 minute episode of a fib HR 120s this morning asymptomatic currently in sinus rhythm continue usual Metoprolol and Xarelto monitor closely 11/17 Was in A-fib RVR again this morning [employer] Folder Operator consulted, metoprolol transition to amiodarone Monitor closely Hypothyroidism On Synthyroid TSH 4.4 Alzheimer's dementia Continue home donezepil Monitor for delirium Depression On fluoxetine severe malnutrition Dietitian consulted DVT prophylaxis On Xarelto Disposition transition to [facility] when accepted Admission and Anticipated Discharge Date Admission Date: November 15, 2023 Subjective Follow-up for A-fib, etc. Was in A-fib again this morning Seen resting in chair, comfortable, not in distress Reports palpitations this morning No active chest pain, shortness of breath No other new symptom Review of Systems Review of Systems: all noted and negative except for above Physical Exam Physical Exam: General- oriented x 3, not in distress, speaks in sentences with no effort or a ccessory muscle use Eyes- anicteric Neck- no JVD Lungs- clear breath sounds bilaterally, no rales/wheezes Heart- normal rate, irregularly irregular rhythm; no murmurs Abdomen- normal bowel sounds, nondistended, soft, no tenderness Extremities- no pretibial edema, no calf tenderness Neuro- alert, oriented x 3; no gross focal neurologic deficits Skin- warm & dry Results & Data Results & Data Vital Signs (Past 12 Hours) Vital Signs Temp Pulse Pulse Resp BP BP Pulse Ox 11/17/23 07:30 36.8 C 94 H 18 148/90 H 96 11/17/23 04:15 36.6 C 86 16 111/79 97 11/17/23 03:48 112 H 11/17/23 02:20 123 H 147/92 H 11/17/23 02:07 65 18 147/92 H 11/16/23 22:04 36.6 C 53 L 16 157/81 H 97 11/16/23 22:00 68 O2 Del Method 11/17/23 07:30 Room Air 11/17/23 04:15 Room Air 11/17/23 03:48 11/17/23 02:20 11/17/23 02:07 11/16/23 22:04 Room Air 11/16/23 22:00 all noted and reviewed including below
[2023-11-17 09:51] LABS: BUN Creatinine Ratio 18.2 (10-20); Calcium 9.5 mg/dl (8.6-10.3); Creatinine Clr Calc Pharmacy 65.4 ml/min; Est GFR (African American) 105.6 ml/min; Est GFR (Non-African American) 91.1 ml/min; Magnesium 1.7 mg/dl (1.7-2.4); Potassium 3.8 mmol/L (3.5-5.1)
[2023-11-17] MEDS: LATANOPROST 0.005% OP SOLN 2.5 ML BTL OPB SCH (10:18)
--- NOTE | 2023-11-17 11:10 | Electrocardiogram Report ---
Test Reason : Blood Pressure : / mmHG Vent. Rate : 109 BPM Atrial Rate : 312 BPM P-R Int : 000 ms QRS Dur : 076 ms QT Int : 346 ms P-R-T Axes : 000 039 -24 degrees QTc Int : 465 ms Atrial fibrillation with rapid ventricular response Abnormal ECG When compared with ECG of 16-NOV-2023 06:28, Atrial fibrillation has replaced Sinus rhythm Vent. rate has increased BY [address] now depressed in Inferior leads Inverted T waves have replaced nonspecific T wave abnormality in Inferior leads QT has lengthened Confirmed by Joel Wood ([id number]) on 11/17/2023 11:10:17 AM Referred By: REFERRED SELF Confirmed By:Robbie Wood
--- NOTE | 2023-11-17 15:00 | Cardiology Consultation ---
Date of Consultation November 17, 2023 Assessment & Plan (1) Atrial fibrillation with rapid ventricular response: (2) Mitral regurgitation: Plan 1. Atrial fibrillation: She has a known history of paroxysmal atrial fibrillation. She seems to be more bothered by the palpitations recently. Perhaps having more frequent episodes. Based on the recurrent nature of her symptoms it would seem reasonable to attempt rhythm control. I think we will discontinue her metoprolol and start amiodarone. This will likely result in fewer episodes perhaps with better rate control overall. Will need to monitor her for bradycardia over time. She will continue systemic anticoagulation. 2. Mitral regurgitation: Mild by echocardiogram earlier this month. 3. Dementia: Likely compromising her care. Possible she has been forgetting some medications. Poor insight into her current condition. She is scheduled to be discharged to an assisted facility. History of Present Illness Reason for Consultation: Atrial fibrillation Requesting Physician: Danica Attending Physician: Drew Mishra MD History of Present Illness The patient is a 78-year-old woman with a history of atrial arrhythmias including paroxysmal atrial fibrillation. She is admitted earlier in the month for paroxysmal atrial fibrillation. Her medical therapy was continued and she was discharged to home. She lives by herself but may be having some difficulty recently with managing her medications. She does have a history of dementia which appears to be progressive. Seems she noticed a sense of palpitation and perhaps mild exercise intolerance recently. This prompted transport to the hospital where she was again discovered to have atrial fibrillation and elevated ventricular rates. She was given some metoprolol in the emergency room and shortly afterwards her rhythm returned to sinus. During a period of observation she had recurrent atrial fibrillation with high ventricular rates. The patient states that she has refrained from a lot of activity recently because of fatigue. She no longer drives and needs to has for rides. She did not report other symptoms such as limiting dyspnea or dizziness. Her palpitations only seem to be noticeable if she places her hand on her chest peer she has some difficulty with ambulation currently due to gait instability. She also has some concern about falling. Allergies Allergy/AdvReac Type Severity Reaction Status Date / Time hydroxychloroquine Allergy Severe rash, hives Verified 11/11/23 02:28 [From Plaquenil] adhesive Allergy Intermediate SWELLING Verified 11/11/23 02:28 AND REDNESS LOCALLY metoprolol Allergy Unknown ON [facility] Verified 11/11/23 02:28 LIST oxycodone Allergy Unknown ON [facility] Verified 11/11/23 02:28 LIST codeine AdvReac Intermediate NAUSEA AND Verified 11/11/23 02:28 VOMITING morphine AdvReac Intermediate NAUSEA AND Verified 11/11/23 02:28 VOMITING Home Medications Medication Instructions Recorded Confirmed Type Vitamin D3 1,000 units PO BID 11/15/23 11/15/23 History donepezil 10 mg tablet 10 mg PO DAILY 11/15/23 11/15/23 History ferrous sulfate 325 mg PO DAILY 11/15/23 11/15/23 History fluoxetine 40 mg capsule 40 mg PO DAILY 11/15/23 11/15/23 History latanoprost 0.005 % eye drops 1 drp OPB DAILY 11/15/23 11/15/23 History levothyroxine 25 mcg tablet 25 mcg PO DAILY 11/15/23 11/15/23 History magnesium 200 mg tablet 200 mg PO DAILY 11/15/23 11/15/23 History metoprolol succinate 25 mg 25 mg PO DAILY 11/15/23 11/15/23 History tablet,extended release 24 hr rivaroxaban 20 mg tablet (Xarelto) 20 mg PO HS 11/15/23 11/15/23 History vitamin B complex 1 cap PO DAILY 11/15/23 11/15/23 History Patient History Medical History (Updated 11/17/23 @ 14:57 by Joel Wood MD) Paroxysmal atrial fibrillation Osteoarthritis Menopause Breast cyst Mitral regurgitation Arthritis Surgical History History of tubal ligation S/P abdominal hysterectomy and left salpingo-oophorectomy History of tonsillectomy and adenoidectomy H/O hernia repair S/P dilatation and curettage History of appendectomy Hx of cataract surgery History of total hip replacement Family History Father Myocardial infarction Congestive heart failure Pure hypercholesterolemia Brother Exertional angina Mother Hypotension Social History Smoking Status: Never smoker Do You Dip or Chew Tobacco: No; Hx Alcohol Use: No Hx Substance Use: No Preferred Language: Telugu Communication Ability: Effective Developmental Education Instructor Required: No Beliefs That Will Affect Care: None marital status: Current Living Situation: Alone Current Living Situation Comment: Pt put in an application for [employer] current occupational status: employed Feels Safe at Home: Yes Safety Concerns: Feels Safe At This Time Assistive Devices: None Review of Systems Review of Systems: Per HPI Physical Exam Physical Exam: She is alert and oriented x3. Mood affect appear normal. She answered most questions appropriately. She has some difficulty with memory. HEENT: Sclerae are anicteric. Pupils are equal and reactive to light and accommodation. Extraocular movements were intact. Neuro: Cranial nerves intact Lungs: Lungs are clear to auscultation bilaterally. There are no rales wheezes or rhonchi. She has normal respiratory effort without use of accessory muscles. There is normal pulmonary excursion. Cardiac: The rhythm was irregular. S1 and S2 were normal. There are no murmurs on examination. The PMI was not markedly displaced on palpation. Extremities: Patient has bilateral radial pulses that are equal in intensity. There is no evidence cyanosis or clubbing. There was no evidence of significant peripheral edema bilaterally. Skin: There are no rashes noted on examination today. Results & Data Vital Signs (Past 12 Hours) Vital Signs Temp Pulse Pulse Resp BP Pulse Ox O2 Del Method 11/17/23 12:48 114 H 99/62 L 11/17/23 11:18 36.6 C 89 16 99/59 L 96 Room Air 11/17/23 07:30 36.8 C 94 H 18 148/90 H 96 Room Air 11/17/23 07:00 93 H 11/17/23 04:15 36.6 C 86 16 111/79 97 Room Air 11/17/23 03:48 112 H Laboratory Results Abnormal Lab Results 11/17/23 09:01 Sodium 133 L Potassium 3.8 Chloride 98 Carbon Dioxide 28 Anion Gap 7 BUN 10 Creatinine 0.55 L Est Cr Clr Drug Dosing 65.4 Est GFR ( Amer) 105.6 Est GFR (Non-Af Amer) 91.1 BUN/Creatinine Ratio 18.2 Glucose 143 H Calcium 9.5 Magnesium 1.7 Diagnostic Findings Chest x-ray obtained on 11/15/2023: No acute cardiopulmonary finding On 11/11/2023: Normal LV systolic function with ejection fraction of 60 65%. Mild LVH. Mild mitral regurgitation. Moderate tricuspid regurgitation. Small pericardial effusion ECG Additional Comments: EKG demonstrates atrial fibrillation and rapid ventricular response. Nonspecifi c ST and T-wave changes PG Care Time/CCT Total # of Minutes Spent Total Time Spent with Patient: Total time spent is greater than 50% in coordination of care (as documented) at patient's floor/unit and/or counseling patient: Coding Level of Care Code 33812 INT INP/OBS CARE 3/75MIN Diagnoses Atrial fibrillation with rapid ventricular response I48.91 Nonrheumatic mitral valve regurgitation I34.0 Cardiac valve disease etiology: nonrheumatic (2) Mitral regurgitation Cardiac valve disease etiology: nonrheumatic Qualified Code(s): I34.0 - Nonrheumatic mitral (valve) insufficiency
[2023-11-17] MEDS: AMIODARONE 200 MG TAB PO SCH (16:10)
[2023-11-17] MEDS: RIVAROXABAN 20 MG TAB PO SCH (16:11)
[2023-11-17] MEDS: ACETAMINOPHEN 325 MG TAB PO PRN ×2 (19:27→23:32)
[2023-11-17] MEDS: MELATONIN 3 MG TAB PO PRN (19:27)
[2023-11-18] MEDS: ACETAMINOPHEN 325 MG TAB PO PRN ×3 (03:44→20:00)
[2023-11-18] MEDS: LEVOTHYROXINE SODIUM 25 MCG TABLET PO SCH (05:57)
[2023-11-18] MEDS: VITAMIN B COMPLEX TAB PO SCH (07:46)
[2023-11-18] MEDS: CHOLECALCIFEROL 1,000 UNITS 25 MCG TAB PO SCH ×2 (07:46→20:00)
[2023-11-18] MEDS: MAGNESIUM OXIDE 400 MG TAB PO SCH (07:47)
[2023-11-18] MEDS: FLUoxetine HCL 20 MG CAP PO SCH (07:47)
[2023-11-18] MEDS: DONEPEZIL HCL 10 MG TAB PO SCH (07:47)
[2023-11-18] MEDS: AMIODARONE 200 MG TAB PO SCH ×2 (07:47→16:20)
[2023-11-18] MEDS: FERROUS SULFATE 325 MG TAB PO SCH (07:47)
[2023-11-18] MEDS: LATANOPROST 0.005% OP SOLN 2.5 ML BTL OPB SCH (07:48)
--- NOTE | 2023-11-18 09:59 | Cardiology Progress Note ---
Date of Service November 18, 2023 Assessment & Plan (1) Atrial fibrillation with rapid ventricular response: (2) Mitral regurgitation: Plan 1. Atrial fibrillation: To cycle in an out of atrial fibrillation. She should have more prolonged episodes of sinus rhythm as she takes more amiodarone. Her overall heart rate was relatively low in sinus rhythm. Think this suggests we can discontinue her metoprolol. As she takes more amiodarone will see the heart rate continue to slow. Amiodarone should also have some benefit when she is in atrial fibrillation at controlling her rate. She should continue systemic anticoagulation. 2. Mitral regurgitation: Mild by echocardiogram earlier this month. 3. Dementia: Likely compromising her care. Possible she has been forgetting some medications. Poor insight into her current condition. She is scheduled to be discharged to an assisted facility. Admission and Anticipated Discharge Date Admission Date: November 15, 2023 Subjective This morning the patient claimed he feeling blah. She has some difficulty characterizing this further. She did not report any specific pain. She denies breathing difficulty. Not currently aware of any palpitations. She did not endorse dizziness or lightheadedness. She thinks she was able to ambulate to the bathroom last evening but was unsure if she was already up this morning. Poor appetite. Mild abdominal discomfort. Review of Systems Review of Systems: Per HPI Physical Exam Physical Exam: She is alert and oriented x3. Mood affect appear normal. She answered most questions appropriately. She has some difficulty with memory. HEENT: Sclerae are anicteric. Pupils are equal and reactive to light and accommodation. Extraocular movements were intact. Neuro: Cranial nerves intact Lungs: Mostly clear lungs. Perhaps some mildly reduced breath sounds at the right base. There are no rales wheezes or rhonchi. She has normal respiratory effort without use of accessory muscles. There is normal pulmonary excursion. Cardiac: The rhythm was regular. S1 and S2 were normal. There are no murmurs on examination. The PMI was not markedly displaced on palpation. Extremities: Patient has bilateral radial pulses that are equal in intensity. There is no evidence cyanosis or clubbing. There was no evidence of significant peripheral edema bilaterally. Skin: There are no rashes noted on examination today. Results & Data Vital Signs (Past 12 Hours) Vital Signs Temp Pulse Pulse Resp BP Pulse Ox O2 Del Method 11/18/23 07:33 36.3 C L 54 L 19 128/77 97 Room Air 11/18/23 07:00 54 L 11/18/23 02:35 36.5 C 89 18 109/74 98 Room Air 11/17/23 23:22 89 11/17/23 23:10 36.6 C 82 18 123/79 99 Room Air PG Care Time/CCT Total # of Minutes Spent Total Time Spent with Patient: Total time spent is greater than 50% in coordination of care (as documented) at patient's floor/unit and/or counseling patient: Coding Level of Care Code 62963 SUB INP/OBS CARE 2/35MIN Diagnoses Atrial fibrillation with rapid ventricular response I48.91 Nonrheumatic mitral valve regurgitation I34.0 Cardiac valve disease etiology: nonrheumatic (2) Mitral regurgitation Cardiac valve disease etiology: nonrheumatic Qualified Code(s): I34.0 - Nonrheumatic mitral (valve) insufficiency
[2023-11-18] MEDS: RIVAROXABAN 20 MG TAB PO SCH (16:20)
--- NOTE | 2023-11-18 16:36 | Hospitalist Progress Note ---
Date of Service November 18, 2023 Assessment & Plan (1) Atrial fibrillation with rapid ventricular response: Plan: per previous attending notes with addendum: 78-year-old female with past medical history significant for hypothyroidism, paroxysmal atrial fibrillation, chronic pain of multiple joints,, late onset Alzheimer's dementia with mood disturbance, depression, history of COVID, who lives alone at home and ambulates without support comes because of rapid A-fib. Patient was recently in the hospital with rapid A-fib and was seen by cardiology and echo was done which showed normal EF. Mild mitral regurgitation moderate tricuspid regurgitation with normal right ventricular systolic pressure. Small pericardial effusion. Patient was discharged home on November 12. Patient states she called EMS but she did not remember why she called EMS. In the ER she was in rapid A-fib and received couple of doses of IV Lopressor. Currently rates under control. Resting comfortably. Denies any headache. No cough. No fever. No chest pain or shortness of breath. No nausea. No abdominal pain. Normal bowel and bladder movements. Rapid A-fib Has dementia, doubt she is taking her medications Continue home metoprolol IV Lopressor as needed Continue Xarelto Monitoring daily May need placement 11/16 had a 2 minute episode of a fib HR 120s this morning asymptomatic currently in sinus rhythm continue usual Metoprolol and Xarelto monitor closely 11/17 Was in A-fib RVR again this morning Scrap Metal Collector consulted, metoprolol transition to amiodarone Monitor closely 11/18 Seems to be in sinus rhythm now Continue amiodarone Appreciate cardiology service recommendations Hypothyroidism On Synthyroid TSH 4.4 Alzheimer's dementia Continue home donezepil Monitor for delirium Depression On fluoxetine severe malnutrition Dietitian consulted DVT prophylaxis On Xarelto Disposition transition to [facility] when accepted Admission and Anticipated Discharge Date Admission Date: November 15, 2023 Subjective Follow-up for A-fib, etc. Seen resting in bed, comfortable, not distressed States she feels fine overall No chest pain, dizziness, palpitations No other new symptoms Review of Systems Review of Systems: all noted and negative except for above Physical Exam Physical Exam: General- oriented x 2, not in distress, speaks in sentences with no effort or accessory muscle use Eyes- anicteric Neck- no JVD Lungs- clear BS BL Heart- normal rate, regular rhythm; no murmurs Abdomen- normal bowel sounds, nondistended, soft, nontender Extremities- no pretibial edema, no calf tenderness Neuro- alert, oriented x 2; no gross focal neurologic deficits Skin- warm & dry Results & Data Results & Data Vital Signs (Past 12 Hours) Vital Signs Temp Pulse Pulse Resp BP BP Pulse Ox 11/18/23 15:00 59 L 11/18/23 14:33 36.8 C 54 L 18 115/63 99 11/18/23 10:38 36.5 C 51 L 19 132/74 99 11/18/23 07:33 36.3 C L 54 L 19 128/77 97 11/18/23 07:00 54 L O2 Del Method 11/18/23 15:00 11/18/23 14:33 Room Air 11/18/23 10:38 Room Air 11/18/23 07:33 Room Air 11/18/23 07:00 all noted and reviewed including below
[2023-11-18] MEDS: MELATONIN 3 MG TAB PO PRN (20:00)
[2023-11-19] MEDS: ACETAMINOPHEN 325 MG TAB PO PRN ×4 (00:06→20:44)
[2023-11-19] MEDS: LEVOTHYROXINE SODIUM 25 MCG TABLET PO SCH (04:47)
[2023-11-19] MEDS ORDERED: DICLOFENAC SOD 1% GEL 100 GM TUBE EXT PRN (04:52)
--- NOTE | 2023-11-19 07:20 | Cardiology Progress Note ---
Date of Service November 19, 2023 Assessment & Plan (1) Paroxysmal atrial fibrillation: Plan: Amiodarone loading, continue 400 mg twice daily while inpatient, reduce to 200 mg twice daily upon discharge (with further reduction after she achieves total of 6-10 g load). She remains off metoprolol. If she develops recurrent bradycardia, could reduce rate of amiodarone loading or reconsider the need for donepezil. (2) Dementia: Plan: Will need monitoring of medications given ultimately tapering dose of amiodarone as well as long-term anticoagulation. (3) Mitral regurgitation: Plan: Mild by echocardiogram earlier this month Admission and Anticipated Discharge Date Admission Date: November 15, 2023 Subjective Telemetry showed paroxysmal atrial fibrillation from 4 to 6 AM, otherwise sinus rhythm in the 60-70 bpm range. Patient did not recall any specific symptoms during atrial fibrillation, but noted a sense of palpitations when I evaluated her at 7 AM (rhythm was sinus at 60 bpm). She denied any chest pain, dyspnea, lightheadedness, or orthopnea. Physical Exam Physical Exam: No distress. BP normotensive. Pulse 60 bpm and regular without ectopy currently. Respirations 18 and unlabored. Skin: no ecchymoses or generalized lesions. HEENT: unremarkable. Neck: JVP just above the clavicle at 90 degrees, no carotid bruits. Lungs: clear. Cardiac: regular rhythm, normal S1-2, no murmur. Abdomen: benign. Extremities: no edema, pulses intact. Neurologic: Very pleasant affect, answers simple questions appropriately, grossly nonfocal. Results & Data Vital Signs (Past 12 Hours) Vital Signs Temp Pulse Pulse Resp BP BP Pulse Ox 11/19/23 03:00 97.7 F 60 18 140/79 98 11/19/23 01:40 59 L 11/18/23 23:27 97.9 F 58 L 18 138/71 98 11/18/23 19:33 97.9 F 60 18 121/70 96 O2 Del Method 11/19/23 03:00 Room Air 11/19/23 01:40 11/18/23 23:27 Room Air 11/18/23 19:33 Room Air PG Care Time/CCT Total # of Minutes Spent Total Time Spent with Patient: Total time spent is greater than 50% in coordination of care (as documented) at patient's floor/unit and/or counseling patient: Coding Level of Care Code 80576 SUB INP/OBS CARE Diagnoses Paroxysmal atrial fibrillation I48.0 Dementia F03.90 Nonrheumatic mitral valve regurgitation I34.0 Cardiac valve disease etiology: nonrheumatic (3) Mitral regurgitation Cardiac valve disease etiology: nonrheumatic Qualified Code(s): I34.0 - Nonrheumatic mitral (valve) insufficiency
[2023-11-19] MEDS: CHOLECALCIFEROL 1,000 UNITS 25 MCG TAB PO SCH ×2 (09:23→20:44)
[2023-11-19] MEDS: AMIODARONE 200 MG TAB PO SCH ×2 (09:23→16:35)
[2023-11-19] MEDS: FERROUS SULFATE 325 MG TAB PO SCH (09:23)
[2023-11-19] MEDS: LATANOPROST 0.005% OP SOLN 2.5 ML BTL OPB SCH (09:24)
[2023-11-19] MEDS: FLUoxetine HCL 20 MG CAP PO SCH (09:24)
[2023-11-19] MEDS: VITAMIN B COMPLEX TAB PO SCH (09:24)
[2023-11-19] MEDS: MAGNESIUM OXIDE 400 MG TAB PO SCH (09:24)
[2023-11-19] MEDS: LORazepam 0.5 MG TAB PO PRN (14:04)
[2023-11-19] MEDS: RIVAROXABAN 20 MG TAB PO SCH (16:35)
--- NOTE | 2023-11-19 19:13 | Hospitalist Progress Note ---
Date of Service November 19, 2023 Assessment & Plan (1) Atrial fibrillation with rapid ventricular response: Plan: per previous attending notes with addendum: 78-year-old female with past medical history significant for hypothyroidism, paroxysmal atrial fibrillation, chronic pain of multiple joints,, late onset Alzheimer's dementia with mood disturbance, depression, history of COVID, who lives alone at home and ambulates without support comes because of rapid A-fib. Patient was recently in the hospital with rapid A-fib and was seen by cardiology and echo was done which showed normal EF. Mild mitral regurgitation moderate tricuspid regurgitation with normal right ventricular systolic pressure. Small pericardial effusion. Patient was discharged home on November 12. Patient states she called EMS but she did not remember why she called EMS. In the ER she was in rapid A-fib and received couple of doses of IV Lopressor. Currently rates under control. Resting comfortably. Denies any headache. No cough. No fever. No chest pain or shortness of breath. No nausea. No abdominal pain. Normal bowel and bladder movements. Rapid A-fib Has dementia, doubt she is taking her medications Continue home metoprolol IV Lopressor as needed Continue Xarelto Monitoring daily May need placement 11/16 had a 2 minute episode of a fib HR 120s this morning asymptomatic currently in sinus rhythm continue usual Metoprolol and Xarelto monitor closely 11/17 Was in A-fib RVR again this morning Chess Instructor consulted, metoprolol transition to amiodarone Monitor closely 11/18 Seems to be in sinus rhythm now Continue amiodarone Appreciate cardiology service recommendations 11/19 Remains in sinus rhythm, heart rate 60s Continue amiodarone Cardiology service on board, appreciate the recommendations Hypothyroidism On Synthyroid TSH 4.4 Alzheimer's dementia Continue home donezepil Monitor for delirium Depression On fluoxetine severe malnutrition Dietitian consulted DVT prophylaxis On Xarelto Disposition transition to [facility] when accepted Admission and Anticipated Discharge Date Admission Date: November 15, 2023 Subjective Follow-up for A-fib RVR, etc. Seen resting in chair, comfortable, not in distress Good spirits States she feels fine overall No recurrence of palpitations, no chest pain, shortness of breath No other new symptoms Review of Systems Review of Systems: all noted and negative except for above Physical Exam Physical Exam: General- oriented x 2, not in distress, speaks in sentences with no effort or accessory muscle use Eyes- anicteric Neck- no JVD Lungs- clear breath sounds bilaterally, no crackles or wheezing Heart- normal rate, regular rhythm; no murmurs Abdomen- normal bowel sounds, nondistended, soft, nontender Extremities- no pretibial edema, no calf tenderness Neuro- alert, oriented x2; no gross focal neurologic deficits Skin- warm & dry Results & Data Results & Data Vital Signs (Past 12 Hours) Vital Signs Temp Pulse Resp BP Pulse Ox O2 Del Method 11/19/23 15:45 36.9 C 68 18 116/70 97 Room Air 11/19/23 12:37 36.6 C 64 18 149/74 H 97 Room Air 11/19/23 07:17 36.5 C 62 18 163/79 H 97 Room Air all noted and reviewed including below
[2023-11-19] MEDS: MELATONIN 3 MG TAB PO PRN (20:44)
[2023-11-20] MEDS: LEVOTHYROXINE SODIUM 25 MCG TABLET PO SCH (05:14)
[2023-11-20] MEDS: LORazepam 0.5 MG TAB PO PRN ×2 (05:14→20:42)
[2023-11-20] MEDS: MAGNESIUM OXIDE 400 MG TAB PO SCH (09:24)
[2023-11-20] MEDS: AMIODARONE 200 MG TAB PO SCH ×2 (09:24→16:38)
[2023-11-20] MEDS: FERROUS SULFATE 325 MG TAB PO SCH (09:24)
[2023-11-20] MEDS: FLUoxetine HCL 20 MG CAP PO SCH (09:24)
[2023-11-20] MEDS: LATANOPROST 0.005% OP SOLN 2.5 ML BTL OPB SCH (09:24)
[2023-11-20] MEDS: CHOLECALCIFEROL 1,000 UNITS 25 MCG TAB PO SCH ×2 (09:24→20:42)
[2023-11-20] MEDS: VITAMIN B COMPLEX TAB PO SCH (09:24)
[2023-11-20] MEDS: ACETAMINOPHEN 325 MG TAB PO PRN ×2 (09:28→20:42)
[2023-11-20] MEDS: RIVAROXABAN 20 MG TAB PO SCH (16:38)
--- NOTE | 2023-11-20 19:31 | Hospitalist Progress Note ---
Date of Service November 20, 2023 delayed entry date of service noted above Assessment & Plan (1) Atrial fibrillation with rapid ventricular response: Plan: per previous attending notes with addendum: 78-year-old female with past medical history significant for hypothyroidism, paroxysmal atrial fibrillation, chronic pain of multiple joints,, late onset Alzheimer's dementia with mood disturbance, depression, history of COVID, who lives alone at home and ambulates without support comes because of rapid A-fib. Patient was recently in the hospital with rapid A-fib and was seen by cardiology and echo was done which showed normal EF. Mild mitral regurgitation moderate tricuspid regurgitation with normal right ventricular systolic pressure. Small pericardial effusion. Patient was discharged home on November 12. Patient states she called EMS but she did not remember why she called EMS. In the ER she was in rapid A-fib and received couple of doses of IV Lopressor. Currently rates under control. Resting comfortably. Denies any headache. No cough. No fever. No chest pain or shortness of breath. No nausea. No abdominal pain. Normal bowel and bladder movements. Rapid A-fib Has dementia, doubt she is taking her medications Continue home metoprolol IV Lopressor as needed Continue Xarelto Monitoring daily May need placement 11/16 had a 2 minute episode of a fib HR 120s this morning asymptomatic currently in sinus rhythm continue usual Metoprolol and Xarelto monitor closely 11/17 Was in A-fib RVR again this morning Machine Heel Seat Fitter consulted, metoprolol transition to amiodarone Monitor closely 11/18 Seems to be in sinus rhythm now Continue amiodarone Appreciate cardiology service recommendations 11/19 Remains in sinus rhythm, heart rate 60s Continue amiodarone Cardiology service on board, appreciate the recommendations 11/20 no recurrence of a fib continue Amiodarone Hypothyroidism On Synthyroid TSH 4.4 Alzheimer's dementia Continue home donezepil Monitor for delirium Depression On fluoxetine severe malnutrition Dietitian consulted DVT prophylaxis On Xarelto Disposition transition to [facility] when accepted Admission and Anticipated Discharge Date Admission Date: November 15, 2023 Subjective ff up for acute bronchitis, etc seen resting in bed, comfortable states she continues to feel better no chest pain, dyspnea, palpitations, dizziness no other new symptoms Review of Systems Review of Systems: all noted and negative except for above Physical Exam Physical Exam: General- oriented x 2, not in distress, speaks in sentences with no effort or accessory muscle use Eyes- anicteric Neck- no JVD Lungs- clear breath sounds bilaterally, no rales/wheezes Heart- normal rate, regular rhythm; no murmurs Abdomen- normal bowel sounds, nondistended, soft, nontender Extremities- no pretibial edema, no calf tenderness Neuro- alert, oriented x 2; no gross focal neurologic deficits Skin- warm & dry Results & Data Results & Data Vital Signs (Past 12 Hours) Vital Signs Temp Pulse Resp BP BP Pulse Ox O2 Del Method 11/20/23 16:10 36.7 C 56 L 18 124/79 98 Room Air 11/20/23 11:00 36.7 C 63 18 121/73 97 Room Air 11/20/23 08:03 36.8 C 67 18 146/83 H 98 Room Air all noted and reviewed including below
[2023-11-20] MEDS: MELATONIN 3 MG TAB PO PRN (20:42)
[2023-11-21] MEDS: ACETAMINOPHEN 325 MG TAB PO PRN ×2 (03:20→07:38)
[2023-11-21] MEDS: LEVOTHYROXINE SODIUM 25 MCG TABLET PO SCH (05:02)
[2023-11-21] MEDS: AMIODARONE 200 MG TAB PO SCH (07:39)
[2023-11-21] MEDS ORDERED: RIVAROXABAN 20 MG TAB PO SCH (09:00)
[2023-11-21] MEDS: FLUoxetine HCL 20 MG CAP PO SCH (09:02)
[2023-11-21] MEDS: LATANOPROST 0.005% OP SOLN 2.5 ML BTL OPB SCH (09:02)
[2023-11-21] MEDS: MAGNESIUM OXIDE 400 MG TAB PO SCH (09:03)
[2023-11-21] MEDS: VITAMIN B COMPLEX TAB PO SCH (09:03)
[2023-11-21] MEDS: FERROUS SULFATE 325 MG TAB PO SCH (09:03)
[2023-11-21] MEDS: CHOLECALCIFEROL 1,000 UNITS 25 MCG TAB PO SCH (09:03)
--- NOTE | 2023-11-21 12:45 | Discharge Summary ---
Discharge Summary Date of Service November 21, 2023 Notes For Next Care Provider Medication Changes From Visit Amiodarone 200 mg twice a day for 1 week, then 200 mg daily until follow-up with banana handler Stop metoprolol. Admission HPI Per Admitting Provider 78-year-old female with past medical history significant for hypothyroidism, paroxysmal atrial fibrillation, chronic pain of multiple joints,, late onset Alzheimer's dementia with mood disturbance, depression, history of COVID, who lives alone at home and ambulates without support comes because of rapid A-fib. Patient was recently in the hospital with rapid A-fib and was seen by cardiology and echo was done which showed normal EF. Mild mitral regurgitation moderate tricuspid regurgitation with normal right ventricular systolic pressure. Small pericardial effusion. Patient was discharged home on November 12. Patient states she called EMS but she did not remember why she called EMS. In the ER she was in rapid A-fib and received couple of doses of IV Lopressor. Currently rates under control. Resting comfortably. Denies any headache. No cough. No fever. No chest pain or shortness of breath. No nausea. No abdominal pain. Normal bowel and bladder movements. Past medical history. As mentioned above. Past surgical history. Colonoscopy. Foot surgery. Right total hip replacement. Right revision of total hip replacement. Left total hip replacement. Social history. Currently lives alone. No smoking. No alcohol use. No drug use. Family history. suicide, 1 son suicide, 1 son alive. Admission Exam Per Admitting Provider General- Not in distress Head- atraumatic Eyes- PERRL. ENT- oropharynx clear Neck- supple, no JVD. Lungs- clear to auscultation no wheezing or crackles. Heart- irregular rhythm; no murmur, no gallop. Abdomen- normal bowel sounds, soft, nontender, no distension. Extremities- no pretibial edema, no erythema Neuro- alert, and awake,; PERRL,; no facial palsy; no dysarthria; moves extremities. Skin- warm & dry Principal Dx & Hospital Course #1 = Principal Diagnosis (1) Atrial fibrillation with rapid ventricular response: per previous attending notes with addendum: 78-year-old female with past medical history significant for hypothyroidism, paroxysmal atrial fibrillation, chronic pain of multiple joints,, late onset Alzheimer's dementia with mood disturbance, depression, history of COVID, who lives alone at home and ambulates without support comes because of rapid A-fib. Patient was recently in the hospital with rapid A-fib and was seen by cardiology and echo was done which showed normal EF. Mild mitral regurgitation moderate tricuspid regurgitation with normal right ventricular systolic pressure. Small pericardial effusion. Patient was discharged home on November 12. Patient states she called EMS but she did not remember why she called EMS. In the ER she was in rapid A-fib and received couple of doses of IV Lopressor. Currently rates under control. Resting comfortably. Denies any headache. No cough. No fever. No chest pain or shortness of breath. No nausea. No abdominal pain. Normal bowel and bladder movements. Rapid A-fib Has dementia, questionable whether patient was taking her medications regularly While admitted, patient had recurrent episodes of atrial fibrillation RVR, symptomatic Cardiology service - Dr Joel Wood transitioned patient from metoprolol to amiodarone Tolerating amiodarone well Amiodarone taper as follows: 200 mg p.o. twice daily x 1 week, then 200 mg p.o. daily Follow-up with banana handler Dr. Joel Wood in 2 weeks at the [facility] outpatient clinic Hypothyroidism On Synthyroid TSH 4.4 Alzheimer's dementia Continue home donezepil Monitor for delirium Depression On fluoxetine severe malnutrition Dietitian consulted DVT prophylaxis On Xarelto Disposition transition to [place] when accepted Discharge Exam General- oriented x 3, not in distress, speaks in sentences with no effort or accessory muscle use Eyes- anicteric Neck- no JVD Lungs- clear breath sounds bilaterally, no rales/wheezes Heart- normal rate, regular rhythm; no murmurs Abdomen- normal bowel sounds, nondistended, soft, nontender Extremities- no pretibial edema, no calf tenderness Neuro- alert, oriented x 3; no gross focal neurologic deficits Skin- warm & dry Updated Medication List Medication Instructions Recorded Confirmed Type Vitamin D3 1,000 units PO BID 11/15/23 11/15/23 History donepezil 10 mg tablet 10 mg PO DAILY 11/15/23 11/15/23 History ferrous sulfate 325 mg PO DAILY 11/15/23 11/15/23 History fluoxetine 40 mg capsule 40 mg PO DAILY 11/15/23 11/15/23 History latanoprost 0.005 % eye drops 1 drp OPB DAILY 11/15/23 11/15/23 History levothyroxine 25 mcg tablet 25 mcg PO DAILY 11/15/23 11/15/23 History magnesium 200 mg tablet 200 mg PO DAILY 11/15/23 11/15/23 History metoprolol succinate 25 mg 25 mg PO DAILY 11/15/23 11/15/23 History tablet,extended release 24 hr rivaroxaban 20 mg tablet (Xarelto) 20 mg PO HS 11/15/23 11/15/23 History vitamin B complex 1 cap PO DAILY 11/15/23 11/15/23 History amiodarone 200 mg tablet 200 mg PO UD #74 tabs 11/21/23 Rx Hospital Stay Data Consultations 11/15/23 04:10 ED Decision to Admit Stat 11/17/23 12:53 Consult Cardiology Routine Diagnostic Imagining Performed Laboratory Results WBC 6.45 K/ul (4.8-10.8) 11/16/23 08:40 RBC 3.81 M/uL (4.20-5.40) L 11/16/23 08:40 Hgb 11.6 g/dl (12.0-16.0) L 11/16/23 08:40 Hct 33.6 % (37.0-47.0) L 11/16/23 08:40 MCV 88.2 fL (80.0-100.0) 11/16/23 08:40 MCH 30.4 pg (25.0-34.0) 11/16/23 08:40 MCHC 34.5 g/dL (32.0-36.0) 11/16/23 08:40 RDW Std Deviation 41.5 fL (36.4-46.3) 11/16/23 08:40 RDW Coeff of Amena 12.9 % (11.5-14.5) 11/16/23 08:40 Plt Count 253 K/uL (130-400) 11/16/23 08:40 MPV 8.8 fL (9.4-12.4) L 11/16/23 08:40 Immature Gran % (Auto) 0.3 % 11/16/23 08:40 Neut % (Auto) 70.6 % 11/16/23 08:40 Lymph % (Auto) 21.4 % 11/16/23 08:40 [place] % (Auto) 5.4 % 11/16/23 08:40 Eos % (Auto) 2.0 % 11/16/23 08:40 Baso % (Auto) 0.3 % 11/16/23 08:40 Neut # (Auto) 4.55 K/uL (1.40-6.50) 11/16/23 08:40 Lymph # (Auto) 1.38 K/uL (1.20-3.40) 11/16/23 08:40 [place] # (Auto) 0.35 K/uL (0.11-0.59) 11/16/23 08:40 Eos # (Auto) 0.13 K/uL (0.00-0.50) 11/16/23 08:40 Baso # (Auto) 0.02 K/uL (0.00-0.20) 11/16/23 08:40 Immature Gran # (Auto) 0.02 K/uL (0.01-0.20) 11/16/23 08:40 Sodium 133 mmol/L (136-145) L 11/17/23 09:01 Potassium 3.8 mmol/L (3.5-5.1) 11/17/23 09:01 Chloride 98 mmol/L (98-107) 11/17/23 09:01 Carbon Dioxide 28 mmol/L (21-32) 11/17/23 09:01 Anion Gap 7 (3-11) 11/17/23 09:01 BUN 10 mg/dl (6-23) 11/17/23 09:01 Creatinine 0.55 mg/dl (0.6-1.2) L 11/17/23 09:01 Est Cr Clr Drug Dosing 65.4 ml/min 11/17/23 09:01 Est GFR ( Amer) 105.6 ml/min 11/17/23 09:01 Est GFR (Non-Af Amer) 91.1 ml/min 11/17/23 09:01 BUN/Creatinine Ratio 18.2 (10-20) 11/17/23 09:01 Glucose 143 mg/dl (70-99(Fasting)) H 11/17/23 09:01 Calcium 9.5 mg/dl (8.6-10.3) 11/17/23 09:01 Magnesium 1.7 mg/dl (1.7-2.4) 11/17/23 09:01 Total Bilirubin 0.6 mg/dl (0.2-1.0) 11/15/23 02:11 AST 20 U/L (13-39) 11/15/23 02:11 ALT 14 U/L (7-52) 11/15/23 02:11 Alkaline Phosphatase 66 U/L (34-104) 11/15/23 02:11 Troponin I High Sens 4.0 pg/ml (0-14) 11/15/23 14:34 Total Protein 6.8 gm/dl (6.0-8.3) 11/15/23 02:11 Albumin 3.9 gm/dl (3.4-5.0) 11/15/23 02:11 Globulin 2.9 gm/dl (2.5-4.0) 11/15/23 02:11 Albumin/Globulin Ratio 1.3 (0.9-2) 11/15/23 02:11 Lipase 61 U/L (11-82) 11/15/23 02:11 Hepatitis C Ab (EIA) NON-REACTIVE (NON-REACTIVE) 11/15/23 10:07 Impressions Chest X-Ray 11/15/23 01:57 XR chest 1V portable CLINICAL HISTORY: Chest pain, nonspecific. COMPARISON STUDY: Chest radiograph November 11, 2023. FINDINGS: Lung volumes are normal. Lungs are clear. There is no pneumothorax or pleural effusion. Cardiac size is normal. Mediastinal contours are normal. There is no evidence for pulmonary edema. IMPRESSION: No acute cardiopulmonary findings. ACT 112: Negative or not required by law. Electronically signed by: Mariusz Dubon M.D. 11/15/2023 7:25 AM Pending Results Patient Have Any Pending Studies at Discharge: No Discharge Instructions Given to Patient (Per Discharging Provider) PLEASE REFER TO YOUR NEW MEDICATION LIST AND FOLLOW INSTRUCTIONS CAREFULLY. YOUR NEW MEDICATIONS INCLUDE: Amiodarone 200 mg twice a day for 1 week, then 200 mg daily until follow-up with banana handler Stop metoprolol. PLEASE CALL YOUR PRIMARY CARE PHYSICIAN OR RETURN TO THE ER IF WITH WORSENING OF SYMPTOMS, INCLUDING Chest pain, palpitations, dizziness, etc. FOLLOW UP WITH PRIMARY CARE PHYSICIAN in 1 week. FOLLOW-UP WITH NET DEVELOPER SOFTWARE ENGINEER C DR. JIMENES AT [facility]. Total Time Total Time Spent Total Time Spent (In Minutes): >30 minutes
[2023-11-21] MEDS ORDERED: AMIODARONE 200 MG TAB PO SCH (17:00)
[2023-11-22] MEDS ORDERED: LEVOTHYROXINE SODIUM 25 MCG TABLET PO SCH (06:30)
[2023-11-22] MEDS ORDERED: DONEPEZIL HCL 10 MG TAB PO SCH (09:00)
[2023-11-22] MEDS ORDERED: FLUoxetine HCL 20 MG CAP PO SCH (09:00)
== END 2023-11-21 13:25 | DRG 308 ==
LOC: ED 01:31 → SUATTDRO 06:10 → 2S 06:10